=== PATIENT | male | born 1960 | race Caucasian/White ===

== ENCOUNTER 2016-06-14 14:14 | Inpatient (IN) ==
[2016-06-14] MEDS ORDERED: Ipratropium/Albuterol Neb 3 ML IH ONE ×3 (14:40→15:36)
--- NOTE | 2016-06-14 14:41 | Emergency Department Note ---
START Narrative - START START: I evaluated and examined the patient with the resident and agree with her findings assessment plan. The patient appears to have a significant COPD exacerbation. He has been persistently wheezy and somewhat hypoxemic even on oxygen here, he drops into the 80s. He usually does not require oxygen. The patient's peak flows were in the 130s. He denies any chest pain. EKG shows a sinus tachycardia with some slight ST depressions probably rate related. Troponin negative. At one point the patient's systolic blood pressure reached 155. He also had significant abnormalities noted on his chest x-ray. ET may be considered or CTA to evaluate further for pulmonic vascular disease or other intrathoracic pathology. Based on his persistent wheezing and apparent failed outpatient therapy with persistent hypoxemia and poor peak flow, and markedly elevated blood pressures, leukocytosis, and abnormal chest x-ray, I think the patient will require admission to the hospital. Anabiotic's were initiated in the ED. The cultures were sent. The patient's lactic acid is negative. No definitive pneumonitis is noted. We discussed the case with the hospitalist on- call who is excepted the patient to their care. Impression: COPD exacerbation Tachycardia Abnormal EKG Hypokalemia Failed outpatient therapy Elevated blood pressure Obesity Abnormal chest x-ray Nicotine dependence Hypoxemia
--- NOTE | 2016-06-14 14:45 | Emergency Department Note ---
Disposition Clinical Impression: Acute exacerbation of chronic obstructive airways disease Disposition: Admitted As Inpatient Condition: Fair SOB HPI - General Chief Complaint: ED Shortness of Breath/Dyspnea Stated Complaint: diff breathing Time Seen by Provider: 06/14/16 14:41 Source: patient Mode of arrival: EMS Limitations: no limitations Nursing Notes Reviewed: Yes Vital Signs Reviewed: Yes - History of Present Illness 56 yo M PMHx HTN, COPD presents with shortness of breath. Pt states that he has had dyspnea, wheeze and dry cough worse from his baseline COPD symptoms since thursday. Pt states he is on sympicort, spiriva and albuterol at home, and has been taking inhalers as prescribed, but has been requiring his rescue inhaler more often the past few days. Pt states he is not on oxygen at home but has required 2L NC today due to low saturations. Pt states that he has also had some subjective fever and has been around his girlfriend who was sick last week. He is a current smoker of 2ppd, he has never had to be hospitalized for COPD exacerbation, or pulmonary infection. Pt was sent from [place], prior to arrival he received duoneb and Iv solumedrol. Pt states that this helped somewhat. He denies chest pain, unilateral edema, numbness,tingling or weakness , nausea, vomiting. Pt Subjective Complaint: shortness of breath Onset (ago): day(s) Context: recent illness Severity: moderate Consistency/Duration: constant Improves with: oxygen, bronchodilators Worsens with: exertion, coughing Known history of: COPD Associated symptoms: Reports: fever Treatment prior to arrival: oxygen, bronchodilator Cough present: Yes Cough Description: Involuntary, Dry Cough Frequency: Persistent Sputum production: No - Related Data Home oxygen amount: none Home Medications Medication Instructions Recorded Confirmed Albuterol Sulfate [Albuterol 0 puff IH Q4HR 06/14/16 06/14/16 Inhaler] Aspirin [Lo-Dose Aspirin EC] 81 mg PO 06/14/16 Budesonide/Formoterol 160/4.5 2 puff IH BIDR 06/14/16 06/14/16 [Symbicort 160/4.5] Cholecalciferol (D-3) [Vitamin D] 1,000 unit PO DAILY 06/14/16 06/14/16 Montelukast [Singulair] 10 mg PO 06/14/16 Tiotropium [Spiriva] 18 mcg IH 06/14/16 Allergies Allergy/AdvReac Type Severity Reaction Status Date / Time No Known Allergies Allergy Verified 06/14/16 14:24 All systems ED: reviewed and negative except as stated. Constitutional: Reports: fever. Denies: chills, weakness Eyes: Denies: eye pain ENT ED: Denies: ear pain Cardiovascular: Denies: chest pain, palpitations, edema Respiratory: Reports: cough, dyspnea, wheezes. Denies: hemoptysis, sputum production Gastrointestinal: Denies: abdominal pain, nausea, vomiting Genitourinary: Denies: urgency, dysuria, frequency Musculoskeletal: Denies: back pain, neck pain Neurological: Denies: headache, weakness, numbness Past Medical History - Past Medical History Attestation: Yes The following information was validated with the patient. Source: patient Medical history: Reports: COPD, hypertension Psychiatric history: Reports: no psych history - Social History Smoking Status: Current every day smoker Smokeless Tobacco Status: No Alcohol use: Reports: none Drug use: Reports: marijuana Physical Exam - General Limitations: no limitations General appearance: alert, anxious - Head Head exam: atraumatic, normocephalic, normal inspection - Eye Eye exam: Present: normal appearance, PERRL, EOMI - ENT ENT exam: normal exam, normal oropharynx, mucous membranes moist - Neck Neck exam: Present: normal inspection, full ROM, trachea midline - Chest Chest inspection: Present: normal inspection. Absent: tenderness - Respiratory Respiratory exam: Present: wheezes, accessory muscle use. Absent: stridor - Expanded Respiratory Exam Location: wheezes: Left, Right, Upper, Lower (diffuse wheeze anterior and posterior b/l), decreased breath sounds: Left, Right, Upper, Lower (diminished course) - Cardiovascular Cardiovascular exam: Present: regular rate, normal rhythm, normal heart sounds, +S1, +S2. Absent: JVD - Abdominal Exam Abdominal exam: Present: soft, Non-Tender. Absent: tenderness, distention, guarding, rebound, rigidity - Extremities Exam Extremities exam: Present: normal inspection, full ROM. Absent: tenderness, pedal edema, calf tenderness - Back Exam Back exam: Present: normal inspection, full ROM. Absent: tenderness - Neurological Exam Neurological exam: Present: alert, oriented X3 - Psychiatric Psychiatric exam: Present: normal affect, normal mood - Skin Skin exam: Present: warm, dry, intact, normal color Course Vital Signs Temperature 98.1 F 06/14/16 14:18 Pulse Rate 102 06/14/16 14:18 Respiratory Rate 24 06/14/16 14:18 Blood Pressure 166/110 06/14/16 14:18 O2 Sat by Pulse Oximetry 96 06/14/16 14:18 Temperature 98.3 F 06/14/16 15:14 Pulse Rate 107 06/14/16 16:25 Respiratory Rate 24 06/14/16 16:25 Blood Pressure 148/105 06/14/16 16:25 O2 Sat by Pulse Oximetry 95 06/14/16 16:25 Oxygen Delivery Oxygen Delivery Nasal Cannula Shortness of Breath/Dyspnea - MDM Narrative Medical decision making narrative: pt continues to have diffuse wheezing, chest tightness during respiration and oxygen requirement despite multiple duoneb treatments and steroids breathing treatment, IV abx - Medical Records Medical records reviewed: Yes I reviewed the patient's medical records. - Lab Data Lab results reviewed: Yes I reviewed the patient's lab results. Result diagrams: 06/14/16 14:46 06/14/16 14:46 Lab Results 06/14/16 06/14/16 06/14/16 Range/Units 14:46 14:46 14:46 WBC 14.9 H (4.3-11.1) K/mcL RBC 4.88 (4.19-5.50) M/mcL Hgb 15.1 (12.9-16.9) g/dL Hct 42.9 (37.5-50.1) % MCV 87.9 (83.0-100.0) fL MCH 30.9 (28.0-33.3) pg MCHC 35.2 (31.6-35.5) g/dL RDW 12.1 (11.5-14.5) % Plt Count 273 (140-400) K/mcL MPV 10.2 (9.4-12.4) fL Immature Gran % 0.7 (0-4) % Seg Neutrophils % 87.6 % Lymphocytes % 9.1 % Monocytes % 2.4 % Eosinophils % 0.0 % Basophils % 0.2 % Neutrophils # 13.1 H (1.6-8.9) K/mcL Lymphocytes # 1.4 (0.6-4.6) K/mcL Monocytes # 0.4 (0.0-1.3) K/mcL Eosinophils # 0.0 (0.0-0.6) K/mcL Basophils # 0.0 (0.0-0.2) K/mcL Platelet Estimate Normal (Normal) PT 13.0 H (9.4-12.1) Seconds INR 1.2 APTT 31.0 (26.0-36.0) Seconds Sodium 134 L (136-145) mEq/L Potassium 3.1 L (3.5-4.5) mEq/L Chloride 88 L (98-109) mEq/L Carbon Dioxide 31 H (19-29) mEq/L BUN 10 (8-26) mg/dL Creatinine 0.86 (0.72-1.25) mg/dL Est GFR ( Amer) > 60 (> 60) Est GFR (Non-Af Amer) > 60 (> 60) BUN/Creatinine Ratio 12 (6-26) Glucose 109 H (70-99) mg/dL Calculated Osmolality 278 L (280-300) Lactic Acid (0.5-2.2) mmol/L Calcium 10.1 (8.6-10.8) mg/dL Total Bilirubin 0.6 (0.2-1.2) mg/dL Direct Bilirubin 0.3 (0.0-0.5) mg/dL Indirect Bilirubin 0.3 (0.0-1.2) mg/dL AST 28 (5-34) Units/L ALT 23 (0-55) Units/L Alkaline Phosphatase 74 (38-126) Units/L Troponin I (0-0.03) ng/mL C-Reactive Protein (Less than 5) mg/L B-Natriuretic Peptide (0-100) pg/mL Serum Total Protein 8.7 H (6.0-8.3) g/dL Albumin 3.8 (3.5-5.0) g/dL Globulin 4.9 H (2.4-3.5) g/dL Albumin/Globulin Ratio 0.8 L (1.1-2.2) 06/14/16 06/14/16 06/14/16 Range/Units 14:46 14:46 14:46 WBC (4.3-11.1) K/mcL RBC (4.19-5.50) M/mcL Hgb (12.9-16.9) g/dL Hct (37.5-50.1) % MCV (83.0-100.0) fL MCH (28.0-33.3) pg MCHC (31.6-35.5) g/dL RDW (11.5-14.5) % Plt Count (140-400) K/mcL MPV (9.4-12.4) fL Immature Gran % (0-4) % Seg Neutrophils % % Lymphocytes % % Monocytes % % Eosinophils % % Basophils % % Neutrophils # (1.6-8.9) K/mcL Lymphocytes # (0.6-4.6) K/mcL Monocytes # (0.0-1.3) K/mcL Eosinophils # (0.0-0.6) K/mcL Basophils # (0.0-0.2) K/mcL Platelet Estimate (Normal) PT (9.4-12.1) Seconds INR APTT (26.0-36.0) Seconds Sodium (136-145) mEq/L Potassium (3.5-4.5) mEq/L Chloride (98-109) mEq/L Carbon Dioxide (19-29) mEq/L BUN (8-26) mg/dL Creatinine (0.72-1.25) mg/dL Est GFR ( Amer) (> 60) Est GFR (Non-Af Amer) (> 60) BUN/Creatinine Ratio (6-26) Glucose (70-99) mg/dL Calculated Osmolality (280-300) Lactic Acid (0.5-2.2) mmol/L Calcium (8.6-10.8) mg/dL Total Bilirubin (0.2-1.2) mg/dL Direct Bilirubin (0.0-0.5) mg/dL Indirect Bilirubin (0.0-1.2) mg/dL AST (5-34) Units/L ALT (0-55) Units/L Alkaline Phosphatase (38-126) Units/L Troponin I 0.01 (0-0.03) ng/mL C-Reactive Protein 77 H (Less than 5) mg/L B-Natriuretic Peptide 11 (0-100) pg/mL Serum Total Protein (6.0-8.3) g/dL Albumin (3.5-5.0) g/dL Globulin (2.4-3.5) g/dL Albumin/Globulin Ratio (1.1-2.2) 06/14/16 Range/Units 14:46 WBC (4.3-11.1) K/mcL RBC (4.19-5.50) M/mcL Hgb (12.9-16.9) g/dL Hct (37.5-50.1) % MCV (83.0-100.0) fL MCH (28.0-33.3) pg MCHC (31.6-35.5) g/dL RDW (11.5-14.5) % Plt Count (140-400) K/mcL MPV (9.4-12.4) fL Immature Gran % (0-4) % Seg Neutrophils % % Lymphocytes % % Monocytes % % Eosinophils % % Basophils % % Neutrophils # (1.6-8.9) K/mcL Lymphocytes # (0.6-4.6) K/mcL Monocytes # (0.0-1.3) K/mcL Eosinophils # (0.0-0.6) K/mcL Basophils # (0.0-0.2) K/mcL Platelet Estimate (Normal) PT (9.4-12.1) Seconds INR APTT (26.0-36.0) Seconds Sodium (136-145) mEq/L Potassium (3.5-4.5) mEq/L Chloride (98-109) mEq/L Carbon Dioxide (19-29) mEq/L BUN (8-26) mg/dL Creatinine (0.72-1.25) mg/dL Est GFR ( Amer) (> 60) Est GFR (Non-Af Amer) (> 60) BUN/Creatinine Ratio (6-26) Glucose (70-99) mg/dL Calculated Osmolality (280-300) Lactic Acid 1.0 (0.5-2.2) mmol/L Calcium (8.6-10.8) mg/dL Total Bilirubin (0.2-1.2) mg/dL Direct Bilirubin (0.0-0.5) mg/dL Indirect Bilirubin (0.0-1.2) mg/dL AST (5-34) Units/L ALT (0-55) Units/L Alkaline Phosphatase (38-126) Units/L Troponin I (0-0.03) ng/mL C-Reactive Protein (Less than 5) mg/L B-Natriuretic Peptide (0-100) pg/mL Serum Total Protein (6.0-8.3) g/dL Albumin (3.5-5.0) g/dL Globulin (2.4-3.5) g/dL Albumin/Globulin Ratio (1.1-2.2) - Radiology Data Radiology results reviewed: Yes I reviewed the patient's radiology results. - EKG Data EKG attestation: Yes I reviewed and interpreted this EKG. EKG shows normal: Reports: sinus rhythm Rate: Reports: tachycardia - Core Measures AMI Core Measures Followed: Yes Critical Care Time Critical Care Time: No
[2016-06-14 15:08] LABS: Basophils % 0.2 %; Hematocrit 42.9 % (37.5-50.1); Hemoglobin 15.1 g/dL (12.9-16.9); Immature Granulocytes % 0.7 % (0-4); Lymphocytes # 1.4 K/mcL (0.6-4.6); Lymphocytes % 9.1 %; Mean Corpuscular HGB Conc 35.2 g/dL (31.6-35.5); Mean Corpuscular Hemoglobin 30.9 pg (28.0-33.3); Mean Corpuscular Volume 87.9 fL (83.0-100.0); Mean Platelet Volume 10.2 fL (9.4-12.4); Monocytes # 0.4 K/mcL (0.0-1.3); Monocytes % 2.4 %; Neutrophils # 13.1 K/mcL (1.6-8.9); Platelet Count 273 K/mcL (140-400); Red Blood Count 4.88 M/mcL (4.19-5.50); Red Cell Distribution Width 12.1 % (11.5-14.5); Segmented Neutrophils % 87.6 %
[2016-06-14 15:13] LABS: INR 1.2
[2016-06-14 15:23] LABS: Alanine Aminotransferase 23 Units/L (0-55); Albumin 3.8 g/dL (3.5-5.0); Albumin/Globulin Ratio 0.8 (1.1-2.2); Alkaline Phosphatase 74 Units/L (38-126); Aspartate Amino Transferase 28 Units/L (5-34); BUN/Creatinine Ratio 12 (6-26); Bilirubin,Direct 0.3 mg/dL (0.0-0.5); Bilirubin,Indirect 0.3 mg/dL (0.0-1.2); Bilirubin,Total 0.6 mg/dL (0.2-1.2); Blood Urea Nitrogen 10 mg/dL (8-26); Calcium 10.1 mg/dL (8.6-10.8); Carbon Dioxide 31 mEq/L (19-29); Chloride 88 mEq/L (98-109); Globulin 4.9 g/dL (2.4-3.5); Glucose 109 mg/dL (70-99); Osmolality,Calculated 278 (280-300); Potassium 3.1 mEq/L (3.5-4.5); Sodium 134 mEq/L (136-145); Total Protein 8.7 g/dL (6.0-8.3); eGFR For African Americans > 60 (> 60); eGFR For Non-African Americans > 60 (> 60)
[2016-06-14 15:29] LABS: Platelet Estimate Normal (Normal)
[2016-06-14] MEDS ORDERED: *HR* LORazepam 2 MG/ML VIAL IVP ONE (15:36)
[2016-06-14] MEDS ORDERED: Levofloxacin 750 MG/150 ML 750 MG/150 ML BAG IVPB ONE (15:39)
--- NOTE | 2016-06-14 19:56 | Internal Med History&Physical ---
Date of Encounter: 06/14/16 Time of Encounter: 19:54 Assessment and Plan (1) Acute exacerbation of chronic obstructive airways disease Current visit: Yes Status: Acute will give IV steroids and duonebs o2 at 2 l and titrate to maintain sats >88-92% CXR does not show any pneumonia but shows left sided atypical pleuroparenchymal thickening which may be re evaluated as OP. not on home o2, con need 6MWT for possible o2 qualification before dc. will order nicotine patch, advised quit smoking. (2) HTN (hypertension) Current visit: Yes Status: Acute stable continue home meds Qualifiers: Hypertension type: essential hypertension Qualified Code(s): I10 - Essential (primary) hypertension Internal Medicine - H&P: HPI Chief complaint: sob Admitted From: Home Plans for Post Hospital Care: Home History of present illness: Mr. Mullins is a 56 year old male with PMHx HTN, COPD presents with shortness of breath. Pt states that he has had dyspnea, wheeze and dry cough worse from his baseline COPD symptoms since thursday. Pt states he is on sympicort, spiriva and albuterol at home, and has been taking inhalers as prescribed, but has been requiring his rescue inhaler more often the past few days. Pt states he is not on oxygen at home but has required 2L NC today due to low saturations. Pt states that he has also had some subjective fever and has been around his girlfriend whose kid was sick with flu like symptoms. He is a current smoker of 2ppd, he has never had to be hospitalized for COPD exacerbation, and never intubated. Pt was sent from [place], prior to arrival he received duoneb and Iv solumedrol. Pt states that this helped somewhat. He denies chest pain, unilateral edema, numbness,tingling or weakness, nausea, vomiting. Past Med Surg Social Fam HX - Past Medical History Medical history: COPD, hypertension Psychiatric history: no psych history - Past Surgical History Surgical History: no surgical history - Social History Smoking Status: Current every day smoker Smokeless Tobacco Status: No Alcohol use: none Drug use: marijuana - Family History Mother Living Status: Hx Family Cardiac Disorders: Yes (NH) Hx Family Cancer: Yes (Lung) Internal Medicine - H&P: Meds Albuterol Sulfate [Albuterol Inhaler] 0 puff IH Q4HR 06/14/16 [History] Aspirin [Lo-Dose Aspirin EC] 81 mg PO 06/14/16 [History] Budesonide/Formoterol 160/4.5 [Symbicort 160/4.5] 2 puff IH BIDR 06/14/16 [ History] Cholecalciferol (D-3) [Vitamin D] 1,000 unit PO DAILY 06/14/16 [History] Montelukast [Singulair] 10 mg PO 06/14/16 [History] Tiotropium [Spiriva] 18 mcg IH 06/14/16 [History] Allergies No Known Allergies Allergy (Verified 06/14/16 14:24) All Systems PM: A 10-system review of systems was performed and is negative for pertinent findings except as documented above in the HPI. - Constitutional Constitutional: as per HPI - EENT Eyes: as per HPI Nose, mouth and throat: as per HPI - Breasts Breasts: as per HPI - Cardiovascular Cardiovascular ROS IM: dyspnea, dyspnea on exertion - Respiratory Respiratory: as per HPI, cough, dyspnea, dyspnea on exertion, wheezing - Gastrointestinal Gastrointestinal: as per HPI - Constitutional Vitals: Temp Pulse Resp BP Pulse Ox 97.9 F 98 16 136/88 97 06/14/16 18:59 06/14/16 18:59 06/14/16 18:59 06/14/16 18:59 06/14/16 18:59 General appearance: Present: mild distress, A&O X 3 Exam: HEENT- appears dusky neck- supple chest- b/l wheezing, no creptns cvs-s1 and s2, no mr//g abd-soft, non tender, bs are present ext- no edema neuro- no focal neuro defecits. Internal Med - H&P Results - Labs CBC & Chem 7: 06/14/16 14:46 06/14/16 14:46
[2016-06-14] MEDS ORDERED: Naloxone 0.4 MG/ML INJ IVP PRN (20:02)
[2016-06-14] MEDS: Ipratropium/Albuterol Neb 3 ML IH SCH ×2 (20:35→23:46)
[2016-06-14] MEDS: Budesonide/Formoterol 160/4.5 MDI IH SCH (20:36)
[2016-06-14] MEDS: Nicotine 14 MG PATCH.TD24 TD SCH (20:52)
[2016-06-14] MEDS: Acetaminophen 325 MG TABLET PO PRN (22:43)
[2016-06-14] MEDS: methylPREDNISolone 125 MG/2 ML VIAL IVP SCH (23:47)
[2016-06-15] MEDS: Ipratropium/Albuterol Neb 3 ML IH SCH ×6 (03:46→23:26)
[2016-06-15 03:53] LABS: Basophils % 0.2 %; Hematocrit 37.8 % (37.5-50.1); Immature Granulocytes % 0.4 % (0-4); Lymphocytes # 0.9 K/mcL (0.6-4.6); Lymphocytes % 10.5 %; Mean Corpuscular HGB Conc 35.7 g/dL (31.6-35.5); Mean Corpuscular Hemoglobin 31.9 pg (28.0-33.3); Mean Corpuscular Volume 89.4 fL (83.0-100.0); Mean Platelet Volume 10.3 fL (9.4-12.4); Monocytes # 0.1 K/mcL (0.0-1.3); Monocytes % 1.5 %; Neutrophils # 7.4 K/mcL (1.6-8.9); Platelet Count 257 K/mcL (140-400); Red Blood Count 4.23 M/mcL (4.19-5.50); Red Cell Distribution Width 12.1 % (11.5-14.5); Segmented Neutrophils % 87.4 %
[2016-06-15 03:55] LABS: Hemoglobin 13.5 g/dL (12.9-16.9)
[2016-06-15 04:05] LABS: BUN/Creatinine Ratio 18 (6-26); Blood Urea Nitrogen 14 mg/dL (8-26); Calcium 9.7 mg/dL (8.6-10.8); Carbon Dioxide 32 mEq/L (19-29); Chloride 90 mEq/L (98-109); Glucose 149 mg/dL (70-99); Magnesium 1.9 mg/dL (1.6-2.6); Osmolality,Calculated 281 (280-300); Phosphorous 3.7 mg/dL (2.3-4.7); Potassium 3.1 mEq/L (3.5-4.5); Sodium 134 mEq/L (136-145); eGFR For African Americans > 60 (> 60); eGFR For Non-African Americans > 60 (> 60)
[2016-06-15 04:11] LABS: Platelet Estimate Normal (Normal)
[2016-06-15] MEDS: *HR* Heparin 5,000 UNIT/ML VIAL SQ SCH ×2 (06:03→16:38)
[2016-06-15] MEDS: Budesonide/Formoterol 160/4.5 MDI IH SCH ×2 (07:54→19:35)
[2016-06-15] MEDS: methylPREDNISolone 125 MG/2 ML VIAL IVP SCH ×3 (08:16→23:39)
[2016-06-15] MEDS: Nicotine 14 MG PATCH.TD24 TD SCH (08:16)
[2016-06-15] MEDS: Magnesium Oxide 400 MG TABLET PO SCH ×2 (11:31→19:56)
[2016-06-15] MEDS: Aspirin Enteric Coated 81 MG Tablet PO SCH (11:31)
--- NOTE | 2016-06-15 14:06 | Internal Med Progress Note ---
<Rowena Woody Mike - Last Filed: 06/15/16 13:35> Date of Encounter: 06/15/16 Time of Encounter: 11:00 - Assessment and plan (1) Acute exacerbation of chronic obstructive airways disease Current Visit: Yes Status: Acute Assessment and plan: Patient stated that he had severe dyspnea upon arrival to hospital His breathing is improved today CT chest 06/15/16 demonstrated calcified area of scarring to left apex, no discrete mass noted, no pleural effusion, motion limitation of study with suspected infectious or post-inflammatory changes of lung bases bilaterally Leukocytosis has resolved today Continue Duonebs Q4 h scheduled Solu-medrol 60mg Q8H scheduled Levaquin (day#2) Discussed smoking cessation with patient Will attempt to qualify for home O2 (2) HTN (hypertension) Current Visit: Yes Status: Acute Assessment and plan: Patient has had elevated BP as high as 166/110 upon arrival to hospital BP at this time 139/96 Restart patient's home dose of HCTZ 25mg daily Hydralazine 10mg prn for uncontrolled BP Qualifiers: Hypertension type: essential hypertension Qualified Code(s): I10 - Essential (primary) hypertension (3) Tobacco abuse Current Visit: Yes Status: Acute Assessment and plan: I spent 6 minutes discussing smoking cessation with patient Patient verbalized understanding (4) Hypokalemia Current Visit: Yes Status: Acute Assessment and plan: Repleted Monitor (5) Leukocytosis Current Visit: Yes Status: Acute Assessment and plan: Resolved from yesterday Continue to monitor Qualifiers: Leukocytosis type: unspecified Qualified Code(s): D72.829 - Elevated white blood cell count, unspecified (6) DVT prophylaxis Current Visit: Yes Status: Acute Assessment and plan: Heparin SQ Q12H - Subjective Interval history: Patient admitted from [place] [facility] for COPD exacerbation. Patient states that he started becoming more dyspnic on of this week, with extreme shortness of breath developing Thursday. Patient was treated with IV solumedrol and duoneb at [place], then sent to [facility]. Patient states that he is feeling much better today. He is requiring 3L of O2 to maintain appropriate oxygenation, however. Patient has remained afebrile since admission. Patient states that he does not use home O2. Patient is unsure if he has previously had PFTs. However, he states that he believes he "breathed into a tube" at one time for testing. - Constitutional Vitals: Temp Pulse Resp BP Pulse Ox 97.3 F L 99 18 139/96 97 06/15/16 12:15 06/15/16 12:15 06/15/16 12:15 06/15/16 12:15 06/15/16 12:15 General appearance: Present: A&O X 3, answers questions appropriately - Head Head exam: Present: atraumatic, normocephalic - Eye Eye exam: Present: EOMI, conjuntiva pink, sclera anicteric - Neck Neck exam general surgery: Present: supple, trachea midline. Absent: lymphadenopathy - Respiratory Respiratory exam: Present: prolonged expiratory phase, wheezes. Absent: accessory muscle use, rales, rhonchi - Cardiovascular Cardiovascular exam: Present: RRR, +S1, +S2. Absent: diastolic murmur, gallop, rubs, systolic murmur - GI/Abdominal GI/Abdominal exam: Present: normal bowel sounds, soft, no peritoneal signs. Absent: distended, tenderness - Extremities Exam Extremities exam: Present: warm, radial pulses palpable and symetrical. Absent : calf tenderness, cyanotic, pedal edema - Neurological Exam Neurological exam: Present: CN II-XII intact, oriented X3, no focal deficits. Absent: facial droop, speech deficit - Skin Skin exam: Present: dry, intact Internal Medicine: Result - Labs CBC & Chem 7: 06/15/16 03:36 06/15/16 03:36 Labs: Short CBC 06/15/16 Range/Units 03:36 WBC 8.5 (4.3-11.1) K/mcL Hgb 13.5 D (12.9-16.9) g/dL Hct 37.8 (37.5-50.1) % Plt Count 257 (140-400) K/mcL Neutrophils # 7.4 (1.6-8.9) K/mcL BMP 06/15/16 03:36 Sodium 134 L Potassium 3.1 L Chloride 90 L Carbon Dioxide 32 H BUN 14 Creatinine 0.79 Glucose 149 H Calcium 9.7 - ABG Interpretation ABG results: PT/INR, D-dimer PT 13.0 Seconds (9.4-12.1) H 06/14/16 14:46 - Impressions Impressions Chest CT 06/15/16 11:10 IMPRESSION: Chronic change at the left apex with partially calcified area of scarring which may represent underlying sequela of granulomatous disease accounts for findings on chest radiograph. Moderate motion limitation of the study in a patient with underlying COPD and suspected postinflammatory or infectious changes of the lung bases bilaterally. D/ /15/2016 13:12:44 Óscar Gotti MD / [facility] Interpreting Provider: Óscar Gotti MD Consult Discharge Plan - Plan Referrals: NO,PCP [Primary Care Provider] - <Reji Seth - Last Filed: 06/15/16 14:49> Date of Encounter: 06/15/16 - Constitutional Vitals: Temp Pulse Resp BP Pulse Ox 97.3 F L 99 18 139/96 97 06/15/16 12:15 06/15/16 12:15 06/15/16 12:15 06/15/16 12:15 06/15/16 12:15 Internal Medicine: Result - Labs CBC & Chem 7: 06/15/16 03:36 06/15/16 03:36 Labs: Short CBC 06/15/16 Range/Units 03:36 WBC 8.5 (4.3-11.1) K/mcL Hgb 13.5 D (12.9-16.9) g/dL Hct 37.8 (37.5-50.1) % Plt Count 257 (140-400) K/mcL Neutrophils # 7.4 (1.6-8.9) K/mcL BMP 06/15/16 03:36 Sodium 134 L Potassium 3.1 L Chloride 90 L Carbon Dioxide 32 H BUN 14 Creatinine 0.79 Glucose 149 H Calcium 9.7 - ABG Interpretation ABG results: PT/INR, D-dimer PT 13.0 Seconds (9.4-12.1) H 06/14/16 14:46 - Impressions Impressions Chest CT 06/15/16 11:10 IMPRESSION: Chronic change at the left apex with partially calcified area of scarring which may represent underlying sequela of granulomatous disease accounts for findings on chest radiograph. Moderate motion limitation of the study in a patient with underlying COPD and suspected postinflammatory or infectious changes of the lung bases bilaterally. D/ / 06/15/2016 13:12:44 Óscar Gotti MD / [email or web address] Interpreting Provider: Óscar Gotti MD - Attending Attestation I examined this patient and my medical decision-making was reviewed with the Resident Physician, Dr. Rowena Woody. I agree with the documented findings, disposition and treatment plan as described except to the extent set forth below. Patient presented with shortness of breath. Currently he is in no acute distress awake alert oriented. His heart exam reveals regular S1 and S2 with no murmurs. Lungs auscultation reveals bilateral expiratory wheezes with no rales or rhonchi. Plan: We will continue with IV steroids. Start tapering tomorrow. Inhaled bronchodilators. Oral Levaquin. Check respiratory infection panel. I have advised smoking cessation. Continue with NicoDerm. We will check home oxygen qualification.
[2016-06-15] MEDS: Cholecalciferol (D-3) 1,000 UNIT TABLET PO SCH (16:38)
[2016-06-15] MEDS: hydroCHLOROthiazide 25 MG TABLET PO SCH (16:38)
[2016-06-15] MEDS: Acetaminophen 325 MG TABLET PO PRN (16:49)
--- NOTE | 2016-06-15 17:26 | ECHO - Doppler Report ---
Echocardiogram Name: Pratik Mullins Date of Study: 06/15/2016 Date: 1960 Ht: 65.0 in Medical Record#: [id number] Age: 56 Wt: 179.0 lb Gender: Male BSA: 1.89 Order #: [id number] Location: [facility] Room #: 3A52 Reading Physician: Aixa Leiva DO General Administrator: Kaitlynn Castrejon Ordering Physician: Aldo Gaffney MD Primary Physician: [facility] Indications: Pulmonary hypertension Impressions: LVEF 60-65%. Normal left ventricular size and systolic function. There is evidence of mild diastolic dysfunction of the left ventricle. Normal right ventricular size and function. No significant valvular dysfunction. Estimated RVSP was 14 mmHg. No pulmonary hypertension. Left Ventricular Wall Motion: Rest Echo Findings All wall segments showed normal motion. Findings: Study Quality * Technically adequate exam. ECG Findings * Normal sinus rhythm. Left Ventricle * Normal LV chamber size, wall thickness and function. * Mild left ventricular diastolic dysfunction. * LVEF 60-65%. Left Atrium * Normal left atrial size. Aortic Valve * No aortic regurgitation. * Trileaflet aortic valve. * Normal aortic valve structure. * No aortic stenosis. Mitral Valve * Normal mitral valve structure. * No mitral regurgitation. * No mitral stenosis. Tricuspid Valve * Normal tricuspid valve structure. * Trace tricuspid regurgitation. * Estimated RA pressure is 3 mmHg. * Estimated RVSP is 14 mmHg. * No pulmonary hypertension. Pulmonic Valve * Pulmonic valve is not well visualized. * No pulmonic stenosis. * No pulmonic regurgitation. Pulmonary Artery * Pulmonary artery not well visualized. Right Ventricle * Normal right ventricular structure and function. Right Atrium * Normal right atrial size. Interatrial Septum * No evidence of PFO by color Doppler. Pericardium * There is no pericardial effusion present. Aorta * Normally sized aortic root. IVC * Normal IVC dimensions and inspiratory collapse. History Hypertension History of Smoking Years 41 Packs 2 Family History of CAD Measurements: BP: 136/ 91 2D Normal Values RVIDd: 3.30 cm <2.7 cm IVSd: .60 cm 0.6 - 1.0 cm LVIDd: 5.10 cm 3.7 - 5.6 cm LVPWd: .90 cm 0.6 - 1.1 cm LVIDs: 3.50 cm 1.5 - 3.6 cm AO: 3.10 cm < 4.0 cm LA: 3.40 cm 2.0 - 4.0cm %FS: 31.40 cm >25 % LA volume: 32 Mitral Valve Peak E:.72 m/sec Peak A:.85 m/sec E/A Ratio:0.8 Tricuspid Valve TV Regurg Peak Grad: 11.00mmHg TV Regurg Peak Inocencio: 1.63m/sec Updated by Aixa Leiva on 06/15/2016 5:21:45 PM electronically signed on 06/15/2016 5:22:23 PM with status of Final Wall Motion Glass: 1=Normal, 2=Hypokinesis, 3=Akinesis, 4=Dyskinesis, 5=Aneurysmal, 6=Hyperkinetic, X=Not Visualized (Blank)=Missing
[2016-06-15] MEDS ORDERED: levoFLOXacin 750 MG TABLET PO SCH (18:00)
[2016-06-15 18:30] LABS: Adenovirus Not Detected (Not Detect); Bordetella Pertussis Not Detected (Not Detect); Chlamydophila pneumoniae Not Detected (Not Detect); Coronavirus 229E Not Detected (Not Detect); Coronavirus HKU1 Not Detected (Not Detect); Coronavirus NL63 Not Detected (Not Detect); Coronavirus OC43 Not Detected (Not Detect); Human Metapneumovirus Not Detected (Not Detect); Human Rhinovirus/Enterovirus Not Detected (Not Detect); Influenza A Subtype 2009 H1 Not Detected (Not Detect); Influenza A Untypeable Not Detected (Not Detect); Influenza B Not Detected (Not Detect); Mycoplasma pneumoniae Not Detected (Not Detect); Parainfluenza Virus 1 Not Detected (Not Detect); Parainfluenza Virus 2 Not Detected (Not Detect); Parainfluenza Virus 3 Not Detected (Not Detect); Parainfluenza Virus 4 Not Detected (Not Detect); Respiratory Syncytial Virus Not Detected (Not Detect)
[2016-06-15] MEDS ORDERED: *HR* LORazepam 1 MG TABLET PO ONE (20:47)
[2016-06-16] MEDS: Ipratropium/Albuterol Neb 3 ML IH SCH ×4 (04:11→16:31)
[2016-06-16 05:15] LABS: Basophils % 0.1 %; Hematocrit 36.2 % (37.5-50.1); Hemoglobin 12.8 g/dL (12.9-16.9); Immature Granulocytes % 0.4 % (0-4); Lymphocytes % 5.5 %; Mean Corpuscular HGB Conc 35.4 g/dL (31.6-35.5); Mean Corpuscular Hemoglobin 31.9 pg (28.0-33.3); Mean Corpuscular Volume 90.3 fL (83.0-100.0); Mean Platelet Volume 10.7 fL (9.4-12.4); Monocytes # 0.4 K/mcL (0.0-1.3); Monocytes % 2.5 %; Platelet Count 309 K/mcL (140-400); Red Blood Count 4.01 M/mcL (4.19-5.50); Red Cell Distribution Width 12.2 % (11.5-14.5); Segmented Neutrophils % 91.5 %
[2016-06-16 05:19] LABS: Lymphocytes # 0.8 K/mcL (0.6-4.6)
[2016-06-16 05:28] LABS: BUN/Creatinine Ratio 24 (6-26); Blood Urea Nitrogen 20 mg/dL (8-26); Calcium 9.5 mg/dL (8.6-10.8); Carbon Dioxide 34 mEq/L (19-29); Chloride 91 mEq/L (98-109); Glucose 154 mg/dL (70-99); Osmolality,Calculated 288 (280-300); Potassium 3.8 mEq/L (3.5-4.5); Sodium 136 mEq/L (136-145); eGFR For African Americans > 60 (> 60); eGFR For Non-African Americans > 60 (> 60)
[2016-06-16] MEDS: *HR* Heparin 5,000 UNIT/ML VIAL SQ SCH (06:24)
[2016-06-16] MEDS: Acetaminophen 325 MG TABLET PO PRN ×3 (06:26→18:29)
[2016-06-16] MEDS: Budesonide/Formoterol 160/4.5 MDI IH SCH (07:54)
[2016-06-16] MEDS: methylPREDNISolone 125 MG/2 ML VIAL IVP SCH (08:34)
[2016-06-16] MEDS: Cholecalciferol (D-3) 1,000 UNIT TABLET PO SCH (08:35)
[2016-06-16] MEDS: Aspirin Enteric Coated 81 MG Tablet PO SCH (08:35)
[2016-06-16] MEDS: Magnesium Oxide 400 MG TABLET PO SCH (08:35)
[2016-06-16] MEDS: hydroCHLOROthiazide 25 MG TABLET PO SCH (08:36)
[2016-06-16] MEDS: Nicotine 14 MG PATCH.TD24 TD SCH (08:45)
[2016-06-16 14:55] VITALS: BP 152/96
--- NOTE | 2016-06-16 15:22 | Discharge Summary ---
Date of Encounter: 06/16/16 Time of Encounter: 10:00 - Discharge Diagnosis (1) Acute exacerbation of chronic obstructive airways disease Priority: Primary Status: Acute (2) HTN (hypertension) Priority: Secondary Status: Acute Qualifiers: Hypertension type: essential hypertension Qualified Code(s): I10 - Essential (primary) hypertension (3) Tobacco abuse Priority: Secondary Status: Acute (4) Acute and chronic respiratory failure with hypoxia Priority: Secondary Status: Acute - Discharge Medications Prescriptions: Ipratropium/Albuterol Neb [Duoneb] 3 ml IH [id number] PRN #60 inhsol PRN Reason: Wheezing Levofloxacin 750 mg PO Q24H #4 tablet Nicotine Patch [Nicoderm] 14 mg TD DAILY #30 patch.td24 PredniSONE 60 mg PO DAILY #54 tablet Home Medications: Albuterol Sulfate [Albuterol Inhaler] 0 puff IH Q4HR 06/14/16 [History] Aspirin [Lo-Dose Aspirin EC] 81 mg PO DAILY 06/14/16 [History] Budesonide/Formoterol 160/4.5 [Symbicort 160/4.5] 2 puff IH BIDR 06/14/16 [ History] Cholecalciferol (D-3) [Vitamin D] 1,000 unit PO DAILY 06/14/16 [History] Tiotropium [Spiriva] 1 cap IH DAILY 06/14/16 [History] Acetaminophen [Tylenol] 325 - 650 mg PO Q6HR PRN 06/15/16 [History] Hydrochlorothiazide 25 mg PO DAILY 06/15/16 [History] Ipratropium/Albuterol Neb [Duoneb] 3 ml IH [id number] PRN #60 inhsol 06/16/16 [Rx] Levofloxacin 750 mg PO Q24H #4 tablet 06/16/16 [Rx] Nicotine Patch [Nicoderm] 14 mg TD DAILY #30 patch.td24 06/16/16 [Rx] PredniSONE 60 mg PO DAILY #54 tablet 06/16/16 [Rx] Allergies/Adverse Reactions: Allergies No Known Allergies Allergy (Verified 06/14/16 14:24) Date of admission: 06/15/16 18:14 Primary care physician: PCP NO - Patient Status Disposition: Home, Self-Care Condition: Fair Functional capacity at discharge: independent ambulation Overall status at discharge: patient is progressing back to baseline - Discharge Instructions Follow Up With: [facility] [Outside] - 06/27/16 12:30 pm - Diet and Activity Activity: increase activity as tolerated, wear oxygen at all times (Avoid any open flame close to your oxygen delivery system) Diet: low fat, low cholesterol, low salt diet Hospital course: Mr. Mullins is a 56 year old male with past medical history significant for hypertension, current tobacco use and COPD who presented to the hospital for shortness of breath. He also reported associated cough and sick contacts. He subjective fevers preceding his symptoms. He currently smokes 40 cigarettes a day. He was found to be hypoxic while in the emergency department. He was admitted to the medical service. Treated with IV steroids, oral Levaquin and inhaled bronchodilators. He was maintained on oxygen by nasal cannula. Today he ambulated in the hallway without any oxygen supplementation and his oxygen saturation dropped to 88% after 5 minutes of slow pace walking. At that time he became tachipneic and short of breath. Overall his symptoms have improved and his hypoxia has been corrected with administration of oxygen by nasal cannula 2 L/m. He will be transitioned to oral steroids and antibiotics and discharged home with home oxygen. I have counseled patient extensively about the importance of smoking cessation and he verbalizes the intention to quit smoking. He expresses understanding the discharge plan. - Time Spent with Patient Total time spent providing and/or coordinating discharge services: Greater than 30 minutes (I have spent 50 minutes coordinating this discharge.) - Constitutional Vitals: Temp Pulse Resp BP Pulse Ox 98.1 F 110 18 152/96 98 06/16/16 14:54 06/16/16 14:54 06/16/16 14:54 06/16/16 14:54 06/16/16 14:54 General appearance: Present: A&O X 3, answers questions appropriately - Respiratory Respiratory exam: Present: prolonged expiratory phase, wheezes (Expiratory wheezes). Absent: accessory muscle use, rales, rhonchi - Cardiovascular Cardiovascular exam: Present: RRR, +S1, +S2. Absent: diastolic murmur, gallop, rubs, systolic murmur - GI/Abdominal GI/Abdominal exam: Present: normal bowel sounds, soft, no peritoneal signs. Absent: distended, tenderness
--- NOTE | 2016-06-16 17:04 | Electrocardiograph Report ---
[address] [address] Test Date: 2016-06-14 Pat Name: Pratik Mullins Department: 105 Room: [facility] Gender: M Consumer Experience Consultant: BAYLEE : 1960 Requested By: Bhavin Jimenes Order Number: [id number] Reading MD: Sanjana Chino Measurements Intervals [place] Rate: 105 P: 79 ID: [id number] QRS: 47 QRSD: 106 T: 51 QT: 311 QTc: 372 Interpretive Statements SINUS TACHYCARDIA ABNORMAL RHYTHM ECG Electronically Signed On 06-16-2016 17:03:17 EDT by Sanjana Chino
== END 2016-06-16 18:36 | disposition home or self-care (01) | DRG 190 ==
LOC: 3ANU 14:14 → EMEROO 14:14 → 3ANU 18:55
PROVIDERS: ADMIT Internal Medicine; ATTEND Internal Medicine

== ENCOUNTER 2018-06-14 06:50 | Inpatient (IN) ==
[2018-06-14] MEDS ORDERED: Ipratropium/Albuterol Neb 3 ML IH ONE (07:02)
[2018-06-14] MEDS ORDERED: methylPREDNISolone 125 MG/2 ML VIAL IVP ONE (07:02)
--- NOTE | 2018-06-14 07:08 | Emergency Department Note ---
Disposition Clinical Impression: COPD with acute exacerbation, Elevated ALT measurement Dyspnea Qualifiers: Dyspnea type: shortness of breath Qualified Code(s): R06.02 - Shortness of breath Disposition: Admitted As Inpatient Condition: Fair General Adult HPI - General Chief complaint: ED Shortness of Breath/Dyspnea Stated complaint: lissett Time Seen by Provider: 06/14/18 07:02 Nursing Notes Reviewed: Yes Vital Signs Reviewed: Yes - History of Present Illness Pain Scale: 0 - Related Data Home Medications Medication Instructions Recorded Confirmed Albuterol Sulfate [Albuterol 0 puff IH Q4HR 06/14/16 06/15/16 Inhaler] Aspirin [Lo-Dose Aspirin EC] 81 mg PO DAILY 06/14/16 06/15/16 Budesonide/Formoterol 160/4.5 2 puff IH BIDR 06/14/16 06/15/16 [Symbicort 160/4.5] Cholecalciferol (D-3) [Vitamin D] 1,000 unit PO DAILY 06/14/16 06/15/16 Tiotropium [Spiriva] 1 cap IH DAILY 06/14/16 06/15/16 Acetaminophen [Tylenol] 325 - 650 mg PO Q6HR PRN 06/15/16 06/15/16 hydroCHLOROthiazide 25 mg PO DAILY 06/15/16 06/15/16 [Hydrochlorothiazide] Previous Rx's Medication Instructions Recorded Ipratropium/Albuterol Neb [Duoneb] 3 ml IH [id number] PRN #60 inhsol 06/16/16 Losartan [Cozaar] 25 mg PO DAILY #30 tablet 06/16/16 Nicotine Patch [Nicoderm] 14 mg TD DAILY #30 patch.td24 06/16/16 levoFLOXacin [Levaquin] 750 mg PO Q24H #4 tablet 06/16/16 predniSONE [PredniSONE] 60 mg PO DAILY #54 tablet 06/16/16 Allergies Allergy/AdvReac Type Severity Reaction Status Date / Time No Known Allergies Allergy Verified 06/14/18 06:58 Past Medical History - Past Medical History Medical history: Reports: COPD, hypertension Surgical history: Reports: no surgical history Psychiatric history: Reports: no psych history - Social History Smoking Status: Current every day smoker Smokeless Tobacco Status: No Alcohol use: Reports: none Drug use: Reports: marijuana Course Vital Signs O2 Sat by Pulse Oximetry 98 06/14/18 06:59 Temperature 98.2 F 06/14/18 11:02 Pulse Rate 113 06/14/18 11:02 Respiratory Rate 24 06/14/18 11:51 Blood Pressure 114/82 06/14/18 11:02 O2 Sat by Pulse Oximetry 96 06/14/18 11:51 Oxygen Delivery Oxygen Delivery Non Rebreather Mask Medical Decision Making - MDM Narrative Medical decision making narrative: Chest X-Ray 06/14/18 07:02 IMPRESSION: Mild COPD. D/ / Markell Joaquin MD / Markell Joaquin MD Interpreting Provider: Markell Joaquin MD . 0925 hours doing better. Going to admit for COPD exacerbation. Patient's in agreement with plan. Hospitalist as accepted - Lab Data Result diagrams: 06/14/18 07:55 06/14/18 07:55 Lab Results 06/14/18 06/14/18 06/14/18 Range/Units 07:55 07:55 07:55 WBC 21.4 H (4.3-11.1) K/mcL RBC 4.25 (4.19-5.50) M/mcL Hgb 13.2 (12.9-16.9) g/dL Hct 39.6 (37.5-50.1) % MCV 93.2 (83.0-100.0) fL MCH 31.1 (28.0-33.3) pg MCHC 33.3 (31.6-35.5) g/dL RDW 13.7 (11.5-14.5) % Plt Count 315 (140-400) K/mcL MPV 10.2 (9.4-12.4) fL Immature Gran % 2.4 (0-4) % Seg Neutrophils % 88.0 % Lymphocytes % 3.5 % Monocytes % 5.8 % Eosinophils % 0.1 % Basophils % 0.2 % Neutrophils # 18.9 H (1.6-8.9) K/mcL Lymphocytes # 0.8 (0.6-4.6) K/mcL Monocytes # 1.2 (0.0-1.3) K/mcL Eosinophils # 0.0 (0.0-0.6) K/mcL Basophils # 0.0 (0.0-0.2) K/mcL Sodium 135 L (136-145) mEq/L Potassium 4.4 (3.5-5.1) mEq/L Chloride 96 L (98-107) mEq/L Carbon Dioxide 30 H (23-29) mEq/L BUN 28 H (6-20) mg/dL Creatinine 0.84 (0.70-1.30) mg/dL Est GFR ( Amer) > 60 (> 60) Est GFR (Non-Af Amer) > 60 (> 60) BUN/Creatinine Ratio 33 H (6-26) Glucose 127 H (70-105) mg/dL Calculated Osmolality 287 (280-300) Lactic Acid 1.5 (0.5-2.2) mmol/L Calcium 9.0 (8.6-10.3) mg/dL Phosphorus (2.7-4.5) mg/dL Magnesium (1.6-2.6) mg/dL Total Bilirubin (0.3-1.0) mg/dL Direct Bilirubin (0.0-0.2) mg/dL Indirect Bilirubin (0.0-1.2) mg/dL AST (13-39) Units/L ALT (7-52) Units/L Alkaline Phosphatase (34-104) Units/L Troponin I 0.03 (< 0.04) ng/mL Serum Total Protein (6.4-8.9) g/dL Albumin (3.5-5.7) g/dL Globulin (2.4-3.5) g/dL Albumin/Globulin Ratio (1.1-2.2) Urine Color (Yellow) Urine Clarity (Clear) Urine pH (5.0-8.0) pH Units Ur Specific [place] (1.010-1.025) Urine Protein (Neg-Trace) mg/dL Urine Glucose (UA) (Normal) mg/dL Urine Ketones (Negative) mg/dL Urine Blood (Negative) Urine Nitrite (Negative) Urine Bilirubin (Negative) Urine Urobilinogen (Normal) mg/dL Ur Leukocyte Esterase (Negative) Ur Culture Indicated? (NO) 06/14/18 06/14/18 Range/Units 07:55 08:45 WBC (4.3-11.1) K/mcL RBC (4.19-5.50) M/mcL Hgb (12.9-16.9) g/dL Hct (37.5-50.1) % MCV (83.0-100.0) fL MCH (28.0-33.3) pg MCHC (31.6-35.5) g/dL RDW (11.5-14.5) % Plt Count (140-400) K/mcL MPV (9.4-12.4) fL Immature Gran % (0-4) % Seg Neutrophils % % Lymphocytes % % Monocytes % % Eosinophils % % Basophils % % Neutrophils # (1.6-8.9) K/mcL Lymphocytes # (0.6-4.6) K/mcL Monocytes # (0.0-1.3) K/mcL Eosinophils # (0.0-0.6) K/mcL Basophils # (0.0-0.2) K/mcL Sodium (136-145) mEq/L Potassium (3.5-5.1) mEq/L Chloride (98-107) mEq/L Carbon Dioxide (23-29) mEq/L BUN (6-20) mg/dL Creatinine (0.70-1.30) mg/dL Est GFR ( Amer) (> 60) Est GFR (Non-Af Amer) (> 60) BUN/Creatinine Ratio (6-26) Glucose (70-105) mg/dL Calculated Osmolality (280-300) Lactic Acid (0.5-2.2) mmol/L Calcium (8.6-10.3) mg/dL Phosphorus 3.0 (2.7-4.5) mg/dL Magnesium 1.7 (1.6-2.6) mg/dL Total Bilirubin 0.4 (0.3-1.0) mg/dL Direct Bilirubin 0.1 (0.0-0.2) mg/dL Indirect Bilirubin 0.3 (0.0-1.2) mg/dL AST 30 (13-39) Units/L ALT 120 H (7-52) Units/L Alkaline Phosphatase 63 (34-104) Units/L Troponin I (< 0.04) ng/mL Serum Total Protein 6.3 L (6.4-8.9) g/dL Albumin 3.8 (3.5-5.7) g/dL Globulin 2.5 (2.4-3.5) g/dL Albumin/Globulin Ratio 1.5 (1.1-2.2) Urine Color Yellow (Yellow) Urine Clarity Clear (Clear) Urine pH 6.5 (5.0-8.0) pH Units Ur Specific [place] 1.018 (1.010-1.025) Urine Protein Negative (Neg-Trace) mg/dL Urine Glucose (UA) Normal (Normal) mg/dL Urine Ketones Negative (Negative) mg/dL Urine Blood Negative (Negative) Urine Nitrite Negative (Negative) Urine Bilirubin Negative (Negative) Urine Urobilinogen Normal (Normal) mg/dL Ur Leukocyte Esterase Negative (Negative) Ur Culture Indicated? NO (NO) Critical Care Time Critical Care Time: Yes Total Critical Care Time: 31 Attestation: Excluding any separately billable procedures. Attestation Statement - Attestation Attestation: This documentation is done with the assistance of Dragon dictation. Despite efforts made to ensure accuracy, there may be inaccuracies in bill of materials clerk or spelling and typographical errors. I examined this patient and my medical decision-making was reviewed with the Resident Physician. I agree with the documented findings, disposition and treatment plan as described except to the extent set forth below. Patient seen and evaluated today by Dr. Perez myself, I agree with his evaluation management plan, supervise care the patient's stay. Patient transported by EMS from the [facility] secondary to acute exacerbation of COPD denies any chest pain at this time. They did breathing treatments on him with some imp rovement no transport with oxygen. Placed him on oxygen here breathing treatment and workup and most likely admission. He is in agreement with plan.
[2018-06-14] MEDS ORDERED: Piperacillin/Tazobactam 3.375 GM in Water for inj. (sterile) 20 ML 20 ML IVP ONE (07:09)
--- NOTE | 2018-06-14 07:16 | Emergency Department Note ---
Disposition Clinical Impression: COPD with acute exacerbation, Elevated ALT measurement Dyspnea Qualifiers: Dyspnea type: shortness of breath Qualified Code(s): R06.02 - Shortness of breath Disposition: Admitted As Inpatient Condition: Fair Time of Disposition: 09:29 SOB HPI - General Chief Complaint: ED Shortness of Breath/Dyspnea Stated Complaint: lissett Time Seen by Provider: 06/14/18 07:02 Nursing Notes Reviewed: Yes Vital Signs Reviewed: Yes - History of Present Illness 58yo male presents from [place] inpatient psychiatric facility for evaluation of dyspnea. Onset this morning abruptly. History of COPD with home controlling MDI and home O2 2L continuous via [place]. Patient arrives via [place] fire department, no O2. Patient denies any cough, fever, chest pain. PMH: COPD Patient denies history of CAD, ACS, DM, HTN, HLD. ROS: Pos: as above Neg: fever, chills, nausea, vomiting, CP , palpitations, abdominal pain. - Related Data Home Medications Medication Instructions Recorded Confirmed Albuterol Sulfate [Albuterol 0 puff IH Q4HR 06/14/16 06/15/16 Inhaler] Aspirin [Lo-Dose Aspirin EC] 81 mg PO DAILY 06/14/16 06/15/16 Budesonide/Formoterol 160/4.5 2 puff IH BIDR 06/14/16 06/15/16 [Symbicort 160/4.5] Cholecalciferol (D-3) [Vitamin D] 1,000 unit PO DAILY 06/14/16 06/15/16 Tiotropium [Spiriva] 1 cap IH DAILY 06/14/16 06/15/16 Acetaminophen [Tylenol] 325 - 650 mg PO Q6HR PRN 06/15/16 06/15/16 hydroCHLOROthiazide 25 mg PO DAILY 06/15/16 06/15/16 [Hydrochlorothiazide] Previous Rx's Medication Instructions Recorded Ipratropium/Albuterol Neb [Duoneb] 3 ml IH [id number] PRN #60 inhsol 06/16/16 Losartan [Cozaar] 25 mg PO DAILY #30 tablet 06/16/16 Nicotine Patch [Nicoderm] 14 mg TD DAILY #30 patch.td24 06/16/16 levoFLOXacin [Levaquin] 750 mg PO Q24H #4 tablet 06/16/16 predniSONE [PredniSONE] 60 mg PO DAILY #54 tablet 06/16/16 Allergies Allergy/AdvReac Type Severity Reaction Status Date / Time No Known Allergies Allergy Verified 06/14/18 06:58 All systems ED: reviewed and negative except as stated. Review of Systems: As Per HPI Past Medical History - Past Medical History Medical history: Reports: COPD, hypertension Surgical history: Reports: no surgical history Psychiatric history: Reports: no psych history - Social History Smoking Status: Current every day smoker Smokeless Tobacco Status: No Alcohol use: Reports: none Drug use: Reports: marijuana Physical Exam Vital Signs Reviewed General: Patient is alert, oriented, and in respiratory distress. He has one word conversational dyspnea, exertional symptoms, markedly tachypneic. Head: atraumatic, normocephalic Eye: normal appearance, PERRL, EOMI, no scleral icterus, no conjunctival injection ENT: mucous membranes moist, normal external ear exam Neck: normal inspection, trachea midline, full ROM Chest: normal inspection, symmetric chest rise Respiratory: Good respiratory effort. Bilateral breath sounds are equally diminished with decreased air entry. No wheeze, crackles, or rhonchi. Cardiovascular: Regular rate and rhythm. No clicks, rubs, gallops, or murmors. Normal heart sounds. Abdomen: Bowel sounds present normoactive x-4 quadrants. Abdomen is soft, nondistended, and nontender. No guarding or rebound. Musculoskeletal: Spontaneously moving all extremities. Skin: warm, dry, intact. Neuro: Alert and oriented x4. Sensation light touch intact. Psych: Patient's affect is appropriate for situation. Course Course Narrative: [facility] PM[facility]: COPD, hypertension, history of cocaine dependence in remission, tobacco use, history of alcohol use in remission, chronic paranoid schizophrenia Medications include current active prednisone, Cipro, metoprolol, risperidone, lorazepam, potassium supplementation, nicotine patch, hydrochlorothiazide, allopurinol EKG #1 EKG data 06/14/2018 at 06 159 interpreted as sinus tachycardia with a rate of 152. DE 100, QRS 106, QTC 44. Normal axis. Nonspecific ST-T changes. Compared to previous EKG dated 06/14/2016 showing no acute ischemic changes brandon rison. Patient is CP free on EKG #1 above. Will repeat EKG and reassess patient after nebs. Patient is SIRS (+) via temp, tachycardia. Will empirically treat for HCAP with vancomycin and zosyn given he is transferred from [place] psychiatric unit. EKG #2 EKG date at 08:27 interpreted as sinus tachycardia with a rate of 138. DE 117, QRS 85, QTC 400. Normal axis. Nonspecific ST T changes. Improvement in rate with no change in rhythm from EKG #1 above. Chest x-ray my evaluation and by radiology read shows mild COPD. Service hematology shows leukocytosis. Per [place] records, patient is currently on prednisone. Serum chemistry shows ALT elevation. No history of hepatitis. This could be secondary to his psychiatric medications. Most recent comparative lab was from 2 years ago and was normal. No elevation in lactic acid. Patient has no elevation of troponin and remains chest pain-free I discussed the above with the patient. He is agreeable to admission for continued pulmonary evaluation. I discussed the above with the admitting hospitalist, Dr. Priest, who agrees to accept the patient for acute exacerbation of COPD. Chest X-Ray 06/14/18 07:02 IMPRESSION: Mild COPD. D/ / Markell Joaquin MD / Markell Joaquin MD Interpreting Provider: Markell Joaquin MD Vital Signs O2 Sat by Pulse Oximetry 98 06/14/18 06:59 Temperature 98.2 F 06/14/18 11:02 Pulse Rate 113 06/14/18 11:02 Respiratory Rate 24 06/14/18 11:51 Blood Pressure 114/82 06/14/18 11:02 O2 Sat by Pulse Oximetry 96 06/14/18 11:51 Oxygen Delivery Oxygen Delivery Non Rebreather Mask Shortness of Breath/Dyspnea - Lab Data Result diagrams: 06/14/18 07:55 06/14/18 07:55 Lab Results 06/14/18 06/14/18 06/14/18 Range/Units 07:55 07:55 07:55 WBC 21.4 H (4.3-11.1) K/mcL RBC 4.25 (4.19-5.50) M/mcL Hgb 13.2 (12.9-16.9) g/dL Hct 39.6 (37.5-50.1) % MCV 93.2 (83.0-100.0) fL MCH 31.1 (28.0-33.3) pg MCHC 33.3 (31.6-35.5) g/dL RDW 13.7 (11.5-14.5) % Plt Count 315 (140-400) K/mcL MPV 10.2 (9.4-12.4) fL Immature Gran % 2.4 (0-4) % Seg Neutrophils % 88.0 % Lymphocytes % 3.5 % Monocytes % 5.8 % Eosinophils % 0.1 % Basophils % 0.2 % Neutrophils # 18.9 H (1.6-8.9) K/mcL Lymphocytes # 0.8 (0.6-4.6) K/mcL Monocytes # 1.2 (0.0-1.3) K/mcL Eosinophils # 0.0 (0.0-0.6) K/mcL Basophils # 0.0 (0.0-0.2) K/mcL Sodium 135 L (136-145) mEq/L Potassium 4.4 (3.5-5.1) mEq/L Chloride 96 L (98-107) mEq/L Carbon Dioxide 30 H (23-29) mEq/L BUN 28 H (6-20) mg/dL Creatinine 0.84 (0.70-1.30) mg/dL Est GFR ( Amer) > 60 (> 60) Est GFR (Non-Af Amer) > 60 (> 60) BUN/Creatinine Ratio 33 H (6-26) Glucose 127 H (70-105) mg/dL Calculated Osmolality 287 (280-300) Lactic Acid 1.5 (0.5-2.2) mmol/L Calcium 9.0 (8.6-10.3) mg/dL Phosphorus (2.7-4.5) mg/dL Magnesium (1.6-2.6) mg/dL Total Bilirubin (0.3-1.0) mg/dL Direct Bilirubin (0.0-0.2) mg/dL Indirect Bilirubin (0.0-1.2) mg/dL AST (13-39) Units/L ALT (7-52) Units/L Alkaline Phosphatase (34-104) Units/L Troponin I 0.03 (< 0.04) ng/mL Serum Total Protein (6.4-8.9) g/dL Albumin (3.5-5.7) g/dL Globulin (2.4-3.5) g/dL Albumin/Globulin Ratio (1.1-2.2) Urine Color (Yellow) Urine Clarity (Clear) Urine pH (5.0-8.0) pH Units Ur Specific [place] (1.010-1.025) Urine Protein (Neg-Trace) mg/dL Urine Glucose (UA) (Normal) mg/dL Urine Ketones (Negative) mg/dL Urine Blood (Negative) Urine Nitrite (Negative) Urine Bilirubin (Negative) Urine Urobilinogen (Normal) mg/dL Ur Leukocyte Esterase (Negative) Ur Culture Indicated? (NO) 06/14/18 06/14/18 Range/Units 07:55 08:45 WBC (4.3-11.1) K/mcL RBC (4.19-5.50) M/mcL Hgb (12.9-16.9) g/dL Hct (37.5-50.1) % MCV (83.0-100.0) fL MCH (28.0-33.3) pg MCHC (31.6-35.5) g/dL RDW (11.5-14.5) % Plt Count (140-400) K/mcL MPV (9.4-12.4) fL Immature Gran % (0-4) % Seg Neutrophils % % Lymphocytes % % Monocytes % % Eosinophils % % Basophils % % Neutrophils # (1.6-8.9) K/mcL Lymphocytes # (0.6-4.6) K/mcL Monocytes # (0.0-1.3) K/mcL Eosinophils # (0.0-0.6) K/mcL Basophils # (0.0-0.2) K/mcL Sodium (136-145) mEq/L Potassium (3.5-5.1) mEq/L Chloride (98-107) mEq/L Carbon Dioxide (23-29) mEq/L BUN (6-20) mg/dL Creatinine (0.70-1.30) mg/dL Est GFR ( Amer) (> 60) Est GFR (Non-Af Amer) (> 60) BUN/Creatinine Ratio (6-26) Glucose (70-105) mg/dL Calculated Osmolality (280-300) Lactic Acid (0.5-2.2) mmol/L Calcium (8.6-10.3) mg/dL Phosphorus 3.0 (2.7-4.5) mg/dL Magnesium 1.7 (1.6-2.6) mg/dL Total Bilirubin 0.4 (0.3-1.0) mg/dL Direct Bilirubin 0.1 (0.0-0.2) mg/dL Indirect Bilirubin 0.3 (0.0-1.2) mg/dL AST 30 (13-39) Units/L ALT 120 H (7-52) Units/L Alkaline Phosphatase 63 (34-104) Units/L Troponin I (< 0.04) ng/mL Serum Total Protein 6.3 L (6.4-8.9) g/dL Albumin 3.8 (3.5-5.7) g/dL Globulin 2.5 (2.4-3.5) g/dL Albumin/Globulin Ratio 1.5 (1.1-2.2) Urine Color Yellow (Yellow) Urine Clarity Clear (Clear) Urine pH 6.5 (5.0-8.0) pH Units Ur Specific [place] 1.018 (1.010-1.025) Urine Protein Negative (Neg-Trace) mg/dL Urine Glucose (UA) Normal (Normal) mg/dL Urine Ketones Negative (Negative) mg/dL Urine Blood Negative (Negative) Urine Nitrite Negative (Negative) Urine Bilirubin Negative (Negative) Urine Urobilinogen Normal (Normal) mg/dL Ur Leukocyte Esterase Negative (Negative) Ur Culture Indicated? NO (NO)
[2018-06-14] MEDS: 0.9 % Sodium Chloride 1,000 ML IVC SCH ×2 (07:44→19:11)
[2018-06-14 08:22] LABS: Basophils % 0.2 %; Eosinophils % 0.1 %; Hematocrit 39.6 % (37.5-50.1); Hemoglobin 13.2 g/dL (12.9-16.9); Immature Granulocytes % 2.4 % (0-4); Lymphocytes # 0.8 K/mcL (0.6-4.6); Lymphocytes % 3.5 %; Mean Corpuscular HGB Conc 33.3 g/dL (31.6-35.5); Mean Corpuscular Hemoglobin 31.1 pg (28.0-33.3); Mean Corpuscular Volume 93.2 fL (83.0-100.0); Mean Platelet Volume 10.2 fL (9.4-12.4); Monocytes # 1.2 K/mcL (0.0-1.3); Monocytes % 5.8 %; Neutrophils # 18.9 K/mcL (1.6-8.9); Platelet Count 315 K/mcL (140-400); Red Blood Count 4.25 M/mcL (4.19-5.50); Red Cell Distribution Width 13.7 % (11.5-14.5)
[2018-06-14 08:42] LABS: Albumin 3.8 g/dL (3.5-5.7); Albumin/Globulin Ratio 1.5 (1.1-2.2); Bilirubin,Direct 0.1 mg/dL (0.0-0.2); Bilirubin,Indirect 0.3 mg/dL (0.0-1.2); Bilirubin,Total 0.4 mg/dL (0.3-1.0); Globulin 2.5 g/dL (2.4-3.5); Magnesium 1.7 mg/dL (1.6-2.6); Total Protein 6.3 g/dL (6.4-8.9)
[2018-06-14 08:43] LABS: BUN/Creatinine Ratio 33 (6-26); Blood Urea Nitrogen 28 mg/dL (6-20); Carbon Dioxide 30 mEq/L (23-29); Chloride 96 mEq/L (98-107); Glucose 127 mg/dL (70-105); Osmolality,Calculated 287 (280-300); Potassium 4.4 mEq/L (3.5-5.1); Sodium 135 mEq/L (136-145); Troponin I 0.03 ng/mL (< 0.04); eGFR For Non-African Americans > 60 (> 60)
[2018-06-14 08:58] LABS: Bilirubin,Urine Negative (Negative); Blood,Urine Negative (Negative); Clarity,Urine Clear (Clear); Color,Urine Yellow (Yellow); Glucose,Urine (UA) Normal (Normal); Ketones,Urine Negative (Negative); Leukocyte Esterase,Urine Negative (Negative); Nitrite,Urine Negative (Negative); PH,Urine 6.5 pH Units (5.0-8.0); Protein,Urine Negative (Neg-Trace); Specific Gravity,Urine 1.018 (1.010-1.025); Urobilinogen,Urine Normal (Normal)
--- NOTE | 2018-06-14 09:39 | Electrocardiograph Report ---
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
--- NOTE | 2018-06-14 09:41 | Electrocardiograph Report ---
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
--- NOTE | 2018-06-14 09:43 | Internal Med History&Physical ---
<Sunday De La Garza - Last Filed: 06/14/18 11:08> Date of Encounter: 06/14/18 Time of Encounter: 09:36 Internal Medicine - H&P: HPI Chief complaint: Shortness of breath Admitted From: Home History of present illness: Mr. Mullins is a 58 year old male with a past medical history of oxygen dependent COPD, hypertension, chronic paranoid schizophrenia, history of alcohol use and cocaine dependence in remission, and tobacco dependence who was transferred from the [facility] medical unit complaining of worsening shortness of breath and fever this morning. He reports excessive of yellow phlegm production, pedal edema, and multiple sick contacts. Of note, patient was hospitalized and treated for COPD exacerbation at [facility] last week and transferred to the [facility] 7 days ago. He has been on the medical unit at the [facility] secondary to shortness of breath while awaiting a psych bed for suicidal ideation. Patient denies active suicidal or homicidal ideation at this time. In the ED patient met SIRS criteria with elevated temperature 100 F, leukocytosis WBC 21.4, and tachycardia heart rate 151. He was started on empiric broad-spectrum vancomycin and Zosyn for possible HCAP and IV steroids with improvement in dyspnea. Lactic acid was negative and blood cultures are pending. Past Med Surg Social Fam HX - Past Medical History Medical history: COPD, hypertension Psychiatric history: depression - Past Surgical History Surgical History: no surgical history - Social History Smoking Status: Current every day smoker Smokeless Tobacco Status: No Alcohol use: none Drug use: marijuana - Family History Mother Living Status: Hx Family Cardiac Disorders: Yes (ID) Hx Family Cancer: Yes (Lung) Father Living Status: Hx Family Cardiac Disorders: Yes (HTN) Hx Family Cancer: Yes Sister Living Status: Cause of : Renal failure Internal Medicine - H&P: Meds Albuterol Sulfate [Albuterol Inhaler] 0 puff IH Q4HR 06/14/16 [History] Aspirin [Lo-Dose Aspirin EC] 81 mg PO DAILY 06/14/16 [History] Budesonide/Formoterol 160/4.5 [Symbicort 160/4.5] 2 puff IH BIDR 06/14/16 [Hi story] Cholecalciferol (D-3) [Vitamin D] 1,000 unit PO DAILY 06/14/16 [History] Tiotropium [Spiriva] 1 cap IH DAILY 06/14/16 [History] Acetaminophen [Tylenol] 325 - 650 mg PO Q6HR PRN 06/15/16 [History] hydroCHLOROthiazide [Hydrochlorothiazide] 25 mg PO DAILY 06/15/16 [History] Ipratropium/Albuterol Neb [Duoneb] 3 ml IH [id number] PRN #60 inhsol 06/16/16 [Rx] Losartan [Cozaar] 25 mg PO DAILY #30 tablet 06/16/16 [Rx] Nicotine Patch [Nicoderm] 14 mg TD DAILY #30 patch.td24 06/16/16 [Rx] levoFLOXacin [Levaquin] 750 mg PO Q24H #4 tablet 06/16/16 [Rx] predniSONE [PredniSONE] 60 mg PO DAILY #54 tablet 06/16/16 [Rx] Allergy/AdvReac Type Severity Reaction Status Date / Time No Known Allergies Allergy Verified 06/14/18 06:58 All Systems PM: A 10-system review of systems was performed and is negative for pertinent findings except as documented above in the HPI. - Constitutional Constitutional: fever(s), no chills - EENT Eyes: no blurry vision, no change in vision Nose, mouth and throat: no epistaxis, no sinus pain, no sore throat - Cardiovascular Cardiovascular ROS IM: dyspnea, edema, palpitations, no chest pain - Respiratory Respiratory: cough, excessive phlegm production - Gastrointestinal Gastrointestinal: no abdominal pain, no diarrhea, no nausea, no vomiting - Genitourinary Genitourinary ROS male: no dysuria, no urinary frequency, no urinary urgency - Musculoskeletal Musculoskeletal ROS IM: no back pain, no numbness, no tingling - Integumentary Integumentary IM: no erythema, no rash - Neurological Neurological ROS: no abnormal gait, no dizziness, no weakness - Psychiatric Psychiatric: anxiety, no depression - Endocrine Endocrine IM: no polydipsia, no polyphagia, no polyuria - Constitutional Vitals: Temp Pulse Resp BP Pulse Ox 100 F H 147 32 155/85 95 06/14/18 07:02 06/14/18 07:57 06/14/18 07:57 06/14/18 07:57 06/14/18 07:10 General appearance: Present: cooperative, mild distress (Tripoding, conversant), pleasant, answers questions appropriately Exam: Disheveled - Head Head exam: Present: atraumatic, normal inspection, normocephalic - Eye Eye exam: Present: EOMI, normal appearance - ENT ENT exam: Present: mucous membranes dry, normal oropharynx - Neck Neck exam general surgery: Present: normal inspection, supple - Respiratory Respiratory exam: Present: accessory muscle use (Wearing nonrebreather mask), prolonged expiratory phase, respiratory distress (Mild), wheezes (Diffuse), tachypnea (Tripoding) - Cardiovascular Cardiovascular exam: Present: tachycardia. Absent: gallop, rubs, systolic murmu r - GI/Abdominal GI/Abdominal exam: Present: soft. Absent: distended, tenderness - Extremities Exam Extremities exam: Present: full ROM, pedal edema (1+) - Back Exam Back exam: Present: normal inspection. Absent: paraspinal tenderness, tenderness - Neurological Exam Neurological exam: Present: alert, CN II-XII intact, oriented X3, no focal deficits, strengths equal and symetr throughout. Absent: speech deficit - Psychiatric Psychiatric exam: Present: anxious. Absent: depressed - Skin Skin exam: Present: dry, warm. Absent: rash Internal Med - H&P Results - Labs CBC & Chem 7: 06/14/18 07:55 06/14/18 07:55 Labs: Short CBC 06/14/18 Range/Units 07:55 WBC 21.4 H (4.3-11.1) K/mcL Hgb 13.2 (12.9-16.9) g/dL Hct 39.6 (37.5-50.1) % Plt Count 315 (140-400) K/mcL Neutrophils # 18.9 H (1.6-8.9) K/mcL BMP 06/14/18 07:55 Sodium 135 L Potassium 4.4 Chloride 96 L Carbon Dioxide 30 H BUN 28 H Creatinine 0.84 Glucose 127 H Calcium 9.0 Cardiac Enzymes 06/14/18 Range/Units 07:55 Troponin I 0.03 (< 0.04) ng/mL Liver Function 06/14/18 Range/Units 07:55 Total Bilirubin 0.4 (0.3-1.0) mg/dL Direct Bilirubin 0.1 (0.0-0.2) mg/dL AST 30 (13-39) Units/L ALT 120 H (7-52) Units/L Alkaline Phosphatase 63 (34-104) Units/L Albumin 3.8 (3.5-5.7) g/dL Urine 06/14/18 Range/Units 08:45 Urine Color Yellow (Yellow) Urine Clarity Clear (Clear) Urine pH 6.5 (5.0-8.0) pH Units Ur Specific [place] 1.018 (1.010-1.025) Urine Protein Negative (Neg-Trace) mg/dL Urine Glucose (UA) Normal (Normal) mg/dL - Pulse Oximetry Interpretation Digit-Finger O2 Sat by Pulse Oximetry: 95 (On nonrebreather mask) Actions taken: none - EKG Data -: EKG Interpreted by Myself EKG shows normal: sinus rhythm (sinus tachycardia with a rate of 152. NM 100, QRS 106, QTC 44. Normal axis. Nonspecific ST-T changes. ) Rate: tachycardia - Impressions ITS Impressions Chest X-Ray 06/14/18 07:02 IMPRESSION: Mild COPD. D/ / Markell Joaquin MD / Markell Joaquin MD Interpreting Provider: Markell Joaquin MD - Assessment and Plan (1) Acute and chronic respiratory failure with hypoxia Current Visit: Yes Status: Acute Assessment and plan: Patient actively tripoding in the ED. Start BiPAP therapy at this time. Patient wears 2 L oxygen continuously at baseline. CTA chest ordered to r/o PE. Well's score 4.5 (PE likely, tachycardia). Continue bronchodilators. ABG pending. Closely monitor. Patient is at high risk for worsening clinical status, low threshold for intubation. Full code. (2) Acute exacerbation of chronic obstructive airways disease Current Visit: Yes Status: Acute Assessment and plan: Patient was hospitalized and treated for COPD exacerbation at [facility] last week and transferred to the NH 7 days ago. Continue IV steroids and IV antibiotics (Vanc, Zosyn, Levaquin) for possible HCAP. CXR revealed COPD. Consider repeat CXR after IV hydration for re-evaluate for PNA. Blood cultures, respiratory infectious panel, urine strep pneumo and legionella antigens pending. Continue Xopenex secondary to persistent tachycardia with albuterol nebs. (3) HTN (hypertension) Current Visit: No Status: Chronic Assessment and plan: Blood pressure controlled. Continue monitoring. Qualifiers: Hypertension type: essential hypertension Qualified Code(s): I10 - Essential (primary) hypertension (4) Tobacco abuse Current Visit: Yes Status: Chronic Assessment and plan: Tobacco cessation discussed. Nicotine patch ordered. (5) Paranoid schizophrenia, chronic condition Current Visit: Yes Status: Acute Assessment and plan: Patient has been on the medical unit at the NH secondary to shortness of breath while awaiting a psych bed for suicidal ideation. Patient denies active suicidal or homicidal ideation at this time. Outpatient management. - Time Spent With Patient Total time spent is greater than 50% in coordination of care (as documented) at patient's floor/unit and/or counseling patient: <MorenitaZayda herzog - Last Filed: 06/14/18 14:31> Date of Encounter: 06/14/18 Internal Medicine - H&P: HPI History of present illness: Mr. Mullins is a 58 year old male All Systems PM: A 10-system review of systems was performed and is negative for pertinent findings except as documented above in the HPI. - Constitutional Vitals: Temp Pulse Resp BP Pulse Ox 98.2 F 113 24 114/82 96 06/14/18 11:02 06/14/18 11:02 06/14/18 11:51 06/14/18 11:02 06/14/18 11:51 Internal Med - H&P Results - Labs CBC & Chem 7: 06/14/18 07:55 06/14/18 07:55 Labs: Short CBC 06/14/18 Range/Units 07:55 WBC 21.4 H (4.3-11.1) K/mcL Hgb 13.2 (12.9-16.9) g/dL Hct 39.6 (37.5-50.1) % Plt Count 315 (140-400) K/mcL Neutrophils # 18.9 H (1.6-8.9) K/mcL BMP 06/14/18 07:55 Sodium 135 L Potassium 4.4 Chloride 96 L Carbon Dioxide 30 H BUN 28 H Creatinine 0.84 Glucose 127 H Calcium 9.0 Cardiac Enzymes 06/14/18 Range/Units 07:55 Troponin I 0.03 (< 0.04) ng/mL Liver Function 06/14/18 Range/Units 07:55 Total Bilirubin 0.4 (0.3-1.0) mg/dL Direct Bilirubin 0.1 (0.0-0.2) mg/dL AST 30 (13-39) Units/L ALT 120 H (7-52) Units/L Alkaline Phosphatase 63 (34-104) Units/L Albumin 3.8 (3.5-5.7) g/dL Urine 06/14/18 Range/Units 08:45 Urine Color Yellow (Yellow) Urine Clarity Clear (Clear) Urine pH 6.5 (5.0-8.0) pH Units Ur Specific [place] 1.018 (1.010-1.025) Urine Protein Negative (Neg-Trace) mg/dL Urine Glucose (UA) Normal (Normal) mg/dL - ABG Interpretation ABG results: 06/14/18 11:43 ABG pH 7.34 ABG pCO2 56 H ABG pO2 129 H ABG HCO3 30 H ABG Total CO2 32 H ABG O2 Saturation 99 H ABG Base Excess 3 - Impressions ITS Impressions Chest X-Ray 06/14/18 07:02 IMPRESSION: Mild COPD. D/ / Markell Joaquin MD / Markell Joaquin MD Interpreting Provider: Markell Joaquin MD Chest CTA 06/14/18 10:56 IMPRESSION: No evidence of pulmonary embolism. Multiple tree-in-bud and ground-glass nodules throughout the right middle lobe and right lower lobe and to a lesser degree in the right upper lobe suggesting an atypical pneumonia. Multiple likely infectious/inflammatory nodules throughout the right lung. Recommend close interval follow-up to resolution. Moderate to severe centrilobular emphysema. The findings were sent to the Radiology Results Communication Center at 12:00 pm on 06/14/2018to be communicated to a licensed caregiver. D/ /14/2018 12:04:47 Salvatore Marcus MD / winter Interpreting Provider: Salvatore Marcus MD - Assessment and Plan (1) Acute exacerbation of chronic obstructive airways disease Current Visit: Yes Status: Acute (2) HTN (hypertension) Current Visit: No Status: Chronic Qualifiers: Hypertension type: essential hypertension Qualified Code(s): I10 - Essential (primary) hypertension (3) Tobacco abuse Current Visit: Yes Status: Chronic (4) Acute and chronic respiratory failure with hypoxia Current Visit: Yes Status: Acute (5) Paranoid schizophrenia, chronic condition Current Visit: Yes Status: Acute - Time Spent With Patient Total time spent is greater than 50% in coordination of care (as documented) at patient's floor/unit and/or counseling patient: - Attending Attestation I examined this patient and my medical decision-making was reviewed with the Resident Physician Dr. De La Garza. I agree with the documented findings, disposition and treatment plan as described except to the extent set forth below. 58 y/o male with history of oxygen dependent COPD, hypertension, chronic paranoid schizophrenia, history of alcohol use and cocaine dependence in remission, and tobacco dependence who was transferred from the [facility] medical unit complaining of worsening shortness of breath and fever this morning. he reports that his SOb had gradual onset progresssively worsened. SOB is associated with productive cough with yellow sputum, denies hemoptysis. denies chest pain however does complain of wheezing. he was seem for similar sx at [facility]. he was waiting for a bed at the [facility] facility. he has recieved Abx, steroids and inhalors with improvement of his respiratory status. he denies fever, chills, CP, palpitations, leg swelling,calf tenderness. is inquiring about diet. has no suicidal or homicidal ideations. pmhx, social and family hx as above VS reviewed mild distress on bipap, answers questions appropriatly wheezing in maxim posterior and anterior chest with diffuse crackles tachycardic, s1 and s2 abdomen is soft Axox3 no focal deficit A/P acute on chronic hypoxic respiratory failure requiring NIMV ruled out PE sepsis secondary to multifocal PNA COPD exacerbation continue with steroids, Abx and duo-nebs respiratory viral panel, urine antigens and sputum cx, blood cx in process. Bipap as neede for respiratory distress/ oxygen via nasal cannula - avoid over oxygenation. chronic paranoid schizophrenia, history of alcohol use and cocaine dependence in remission, and tobacco dependence- thiamine, continue psych medications if not CI, currently has no HI or SI. to be transferred to [facility] once medically cleared. DVt prophylaxis: SC heparin further plan and diagnosis as above documented by resident
[2018-06-14] MEDS ORDERED: Ondansetron 4 MG/2 ML VIAL IVP PRN (10:07)
[2018-06-14] MEDS ORDERED: Naloxone 0.4 MG/ML INJ IVP PRN ×2 (10:07→10:12)
[2018-06-14] MEDS ORDERED: Isovue-370 500 ML BOTTLE IVP ONE (10:56)
[2018-06-14] MEDS: Levalbuterol Neb 1.25 MG/3 ML IH SCH ×4 (11:44→23:57)
[2018-06-14 11:47] LABS: ABG Base Excess 3 mEq/L (-2 to 3); ABG HCO3 30 mEq/L (21-27); ABG Oxygen Saturation 99 % (95-98); ABG PCO2 56 mmHg (35-45); ABG PH 7.34 pH Units (7.32-7.45); ABG PO2 129 mmHg (85-104); ABG TCO2 32 mEq/L (20-26)
[2018-06-14] MEDS ORDERED: Ipratropium 1 PUFF INHALER IH SCH (12:00)
[2018-06-14] MEDS: MethylPREDNISolone 40 MG/ML VIAL IVP SCH ×3 (14:33→23:11)
[2018-06-14] MEDS: Levofloxacin 750 MG/150 ML 750 MG/150 ML BAG IVPB SCH (14:33)
[2018-06-14] MEDS: *HR* Heparin 5,000 UNIT/ML VIAL SQ SCH ×2 (14:33→23:11)
[2018-06-14] MEDS: Ipratropium Neb 0.5 MG NEBULIZER IH SCH ×3 (16:02→23:57)
[2018-06-14] MEDS: Thiamine (B-1) 100 MG TABLET PO SCH (17:31)
[2018-06-14] MEDS: Piperacillin/Tazobactam 3.375 GM in 0.9 % Sodium Chloride Mini Bag 100 ML IVPB SCH ×2 (17:32→23:10)
[2018-06-14 19:26] LABS: Adenovirus Not Detected (Not Detect); Bordetella Pertussis Not Detected (Not Detect); Chlamydophila pneumoniae Not Detected (Not Detect); Coronavirus 229E Not Detected (Not Detect); Coronavirus HKU1 Not Detected (Not Detect); Coronavirus NL63 Not Detected (Not Detect); Coronavirus OC43 Not Detected (Not Detect); Human Metapneumovirus DETECTED (Not Detect); Human Rhinovirus/Enterovirus Not Detected (Not Detect); Influenza A Subtype 2009 H1 Not Detected (Not Detect); Influenza A Untypeable Not Detected (Not Detect); Influenza B Not Detected (Not Detect); Mycoplasma pneumoniae Not Detected (Not Detect); Parainfluenza Virus 1 Not Detected (Not Detect); Parainfluenza Virus 2 Not Detected (Not Detect); Parainfluenza Virus 3 Not Detected (Not Detect); Parainfluenza Virus 4 Not Detected (Not Detect); Respiratory Syncytial Virus Not Detected (Not Detect)
[2018-06-14] MEDS: Acetaminophen 325 MG TABLET PO PRN (19:47)
[2018-06-15] MEDS: Acetaminophen 325 MG TABLET PO PRN (04:01)
[2018-06-15] MEDS: Levalbuterol Neb 1.25 MG/3 ML IH SCH ×5 (04:08→20:19)
[2018-06-15] MEDS: Ipratropium Neb 0.5 MG NEBULIZER IH SCH ×5 (04:08→20:19)
[2018-06-15] MEDS: MethylPREDNISolone 40 MG/ML VIAL IVP SCH ×2 (05:07→17:54)
[2018-06-15] MEDS: *HR* Heparin 5,000 UNIT/ML VIAL SQ SCH ×3 (05:07→22:07)
[2018-06-15 07:02] LABS: Basophils % 0.2 %; Hemoglobin 12.8 g/dL (12.9-16.9); Immature Granulocytes % 2.1 % (0-4); Mean Corpuscular HGB Conc 32.8 g/dL (31.6-35.5); Mean Corpuscular Hemoglobin 31.1 pg (28.0-33.3); Red Cell Distribution Width 13.8 % (11.5-14.5); Segmented Neutrophils % 92.7 %
[2018-06-15 07:04] LABS: Basophils # 0.1 K/mcL (0.0-0.2); Lymphocytes # 0.5 K/mcL (0.6-4.6); Mean Corpuscular Volume 94.7 fL (83.0-100.0); Monocytes # 0.8 K/mcL (0.0-1.3); Neutrophils # 24.2 K/mcL (1.6-8.9); Platelet Count 311 K/mcL (140-400); Red Blood Count 4.12 M/mcL (4.19-5.50)
[2018-06-15] MEDS: Tiotropium 18 MCG inhalation IH SCH (07:34)
[2018-06-15 07:39] LABS: BUN/Creatinine Ratio 29 (6-26); Blood Urea Nitrogen 18 mg/dL (6-20); Calcium 9.1 mg/dL (8.6-10.3); Carbon Dioxide 29 mEq/L (23-29); Chloride 96 mEq/L (98-107); Glucose 158 mg/dL (70-105); Osmolality,Calculated 289 (280-300); Potassium 3.9 mEq/L (3.5-5.1); Sodium 137 mEq/L (136-145); eGFR For Non-African Americans > 60 (> 60)
[2018-06-15 07:56] LABS: Platelet Estimate Normal (Normal)
[2018-06-15] MEDS: Thiamine (B-1) 100 MG TABLET PO SCH (08:50)
[2018-06-15] MEDS: Nicotine 21 MG PATCH.TD24 TD SCH (08:50)
[2018-06-15] MEDS: Piperacillin/Tazobactam 3.375 GM in 0.9 % Sodium Chloride Mini Bag 100 ML IVPB SCH ×2 (08:50→15:29)
[2018-06-15] MEDS ORDERED: Aminoglycoside Consult 1 EACH MC ONE (09:06)
--- NOTE | 2018-06-15 11:50 | Internal Med Progress Note ---
Hospitalist Progress Note - Encounter Date of Encounter: 06/15/18 Time of Encounter: 11:42 - Subjective Interval History: Sitting on chair watching TV. Shortness of breath and cough better. Sitter at bedside. Review the lab. Talk to his psychiatrist at [place] Denies fever chills nausea vomiting headache dizziness chest pain abdominal pain diarrhea - Exam Vitals: Temp Pulse Resp BP Pulse Ox 97.8 F 113 20 167/91 100 06/15/18 11:16 06/15/18 11:16 06/15/18 11:16 06/15/18 11:16 06/15/18 11:16 Exam: General appearance: No acute distress Head exam: Atraumatic Eye exam: EOMI, PERRLA ENT exam: Moist oral mucosa Neck nontender, supple Respiratory exam: Decreased breath sound bilaterally with a few scattered wheezing Cardiovascular exam: Sinus tachycardia with a regular rhythm, no systolic murmur Abdominal exam: Soft, nontender, nondistended, positive bowel sounds Extremities exam: No calf tenderness, +1 pedal edema Present: Skin-no rash, warm, dry, intact Neurological exam: Alert, awake, oriented 3, CN II-XII intact, no focal deficits. No facial droop. Pressured speech. Normal gait. - Assessment and Plan (1) Acute exacerbation of chronic obstructive airways disease Current Visit: Yes Status: Acute Assessment and Plan: Patient was hospitalized and treated for COPD exacerbation at [facility] last week and transferred [place] 7 [place] ago. Continue IV steroids and IV antibiotics (Vanc, Zosyn, Levaquin) for possible H CAP-- will decrease IV steroid 40 mg IV every 12 hours. MRSA nasal swab screen ordered and if his negative cholesterol vancomycin. Will plan to D escalate antibiotic a patient continued to improve. Blood cultures and sputum culture with no growth yet respiratory infectious panel-positive for human metapneumo virus urine strep pneumo and legionella antigens -negative Continue Xopenex secondary to persistent tachycardia with albuterol nebs. Will consider traffic signal mechanic if needed. Repeat chest x-ray ordered CT/CT angio chest IMPRESSION: No evidence of pulmonary embolism. Multiple tree-in-bud and ground-glass nodules throughout the right middle lobe and right lower lobe and to a lesser degree in the right upper lobe suggesting an atypical pneumonia. Multiple likely infectious/inflammatory nodules throughout the right lung. Recommend close interval follow-up to resolution. Moderate to severe centrilobular emphysema. (2) HTN (hypertension) Current Visit: No Status: Chronic Assessment and Plan: High blood pressure. Resumed home medication lisinopril after confirming. Close monitoring. (3) Tobacco abuse Current Visit: Yes Status: Chronic Assessment and Plan: Tobacco cessation discussed. Nicotine patch ordered. (4) Acute and chronic respiratory failure with hypoxia Current Visit: Yes Status: Acute Assessment and Plan: Better. On admission Patient actively in respiratory distress distress- BiPAP in ER Patient wears 2 L oxygen continuously at baseline. CTA chest ruled out PE Continue bronchodilators. ABG Closely monitor. (5) Paranoid schizophrenia, chronic condition Current Visit: Yes Status: Acute Assessment and Plan: Talk to his psychiatrist Dr. arreola at [facility] and he advised to start risperidone 2 mg by mouth twice a day scheduled as it had control his agitation in the past. He also advised Haldol 5 mg by mouth every 6 hours for agitation and it can be changed to IV if cannot be given oral. Patient in psychiatric consultation done Patient has been on the medical unit at the [place] secondary to shortness of breath while awaiting a psych bed for suicidal ideation. Patient denies active suicidal or homicidal ideation at this time. Outpatient management. (6) Sinus tachycardia Current Visit: Yes Status: Acute Assessment and Plan: Mild intermittent sinus tachycardia. No active chest pain. Echo as mentioned below. Could be due to agitation. Restoril is started. Continue to monitor. Impressions: LVEF 60-65%. Normal left ventricular size and systolic function. There is evidence of mild diastolic dysfunction of the left ventricle. Normal right ventricular size and function. No significant valvular dysfunction. Estimated RVSP was 14 mmHg. No pulmonary hypertension. (7) DVT prophylaxis Current Visit: No Status: Acute Assessment and Plan: Heparin subcutaneous. (8) Goals of care, counseling/discussion Current Visit: Yes Status: Acute Assessment and Plan: More than 35 minute inpatient care and coordination with the patient, nursing staff, client experience consultant as mentioned. Talk to his psychiatrist at [place] - Time Spent with Patient Total time spent is greater than 50% in coordination of care (as documented) at patient's floor/unit and/or counseling patient: Greater than 35 minutes Plan of Care Discussed with: nurse Internal Medicine: Result - Labs CBC & Chem 7: 06/15/18 06:32 06/15/18 06:32 Labs: Short CBC 06/15/18 Range/Units 06:32 WBC 26.1 H (4.3-11.1) K/mcL Hgb 12.8 L (12.9-16.9) g/dL Hct 39.0 (37.5-50.1) % Plt Count 311 (140-400) K/mcL Neutrophils # 24.2 H (1.6-8.9) K/mcL BMP 06/15/18 06:32 Sodium 137 Potassium 3.9 Chloride 96 L Carbon Dioxide 29 BUN 18 Creatinine 0.63 L Glucose 158 H Calcium 9.1 - ABG Interpretation ABG results: ABG ABG pH 7.34 pH Units (7.32-7.45) 06/14/18 11:43 ABG pCO2 56 mmHg (35-45) H 06/14/18 11:43 ABG pO2 129 mmHg (85-104) H 06/14/18 11:43 ABG O2 Saturation 99 % (95-98) H 06/14/18 11:43 - Impressions Impressions Chest CTA 06/14/18 10:56 IMPRESSION: No evidence of pulmonary embolism. Multiple tree-in-bud and ground-glass nodules throughout the right middle lobe and right lower lobe and to a lesser degree in the right upper lobe suggesting an atypical pneumonia. Multiple likely infectious/inflammatory nodules throughout the right lung. Recommend close interval follow-up to resolution. Moderate to severe centrilobular emphysema. The findings were sent to the Radiology Results Communication Center at 12:00 pm on 06/14/2018to be communicated to a licensed caregiver. D/ : / 06/14/2018 12:04:47 Salvatore Marcus MD / winter Interpreting Provider: Salvatore Marcus MD Consult Discharge Plan - Plan [facility]errals: [facility]Primary Care Provider] - (2) HTN (hypertension) Qualifiers: Hypertension type: essential hypertension Qualified Code(s): I10 - Essential (primary) hypertension
[2018-06-15] MEDS: risperiDONE 1 MG TABLET PO SCH ×2 (12:16→22:07)
[2018-06-15] MEDS: Levofloxacin 750 MG/150 ML 750 MG/150 ML BAG IVPB SCH (12:17)
--- NOTE | 2018-06-15 12:51 | Consult Note ---
Date of Encounter: 06/15/18 Time of Encounter: 12:44 Assessment & Recommendation (1) Paranoid schizophrenia, chronic condition Current visit: Yes Status: Acute Assessment & Recommendation: Client unable to give much history and is not seen as a reliable historian. Thoughts were pretty disorganized today. However, he was able to deny SI/HI/AH/VH. Due not think he requires a sitter for SI at this time. Would recommend getting [facility] to see how they were managing his psychosis. Unclear what his baseline is. Client may be psychotic at his baseline. However, if this is not his norm would continue with plan to transfer him to inpatient psych once medically stable. He should probably restart whatever his regimen is through the [facility] provided nothing he is normally prescribed interacts with his medical treatment here. If the [facility] does not have recent records can start him on Risperdal 2mg daily to get him going on something. Call if any questions. History of Present Illness Requesting Physician: Zayda Zuñiga MD Reason for consult: paranoid schizophrenia History of present illness: Mr. Mullins is a 58 year old male who was on a medical unit at the [facility] awaiting an inpatient mental health bed and ended up being transferred to [place] for ongoing medical care. Client is diagnosed with paranoid Schizophrenia and is not currently on any medications. He was awaiting a mental health bed secondary to endorsing SI. On eval today client denies SI, intent, or plan. He denies HI/AH/VH as well. However, his thoughts are disorganized and he is unable to provide any reliable history. Client states he has not been treated for a mental health condition since 1994. Claims he took "mood pills" at that time and that there is nothing wrong with his mind. [facility] because he drank "white wine" and "I turned myself in." Does not know what he is being treated for medically. On eval today client was not making much sense. He was talking about not letting the aircraft structure mechanic in his house due to dog hair but then jumped to wanting to kill Obama on his lawn. Unable to answer most questions with helpful answers. CC: Zayda Zuñiga MD Past Med Surg Social Fam HX - Past Medical History Medical history: COPD, hypertension - Past Psychiatric History Psychiatric history: Reports: schizophrenia, previous psychiatric hospitalization Family psychiatric history: Unknown Family History of Suicide: Unknown - Past Surgical History Surgical History: no surgical history - Social History Smoking Status: Current every day smoker Smokeless Tobacco Status: No Alcohol use: none Drug use: marijuana - Family History Mother Living Status: Hx Family Cardiac Disorders: Yes ([place]) Hx Family Cancer: Yes (Lung) Father Living Status: Age at : 74 Cause of : CHF Hx Family Cardiac Disorders: Yes Hx Family Respiratory Disorders: Yes Hx Family Cancer: Yes Hx Family GI Disorders: Yes Hx Family Endocrine Disorder: Yes Hx Family Medical Disorders: Yes Sister Living Status: Cause of : Renal failure Medications & Allergies Albuterol Sulfate [Albuterol Inhaler] 2 puff IH TID PRN 06/14/16 [History] Aspirin [Lo-Dose Aspirin EC] 81 mg PO DAILY 06/14/16 [History] Budesonide/Formoterol 160/4.5 [Symbicort 160/4.5] 2 puff IH BIDR 06/14/16 [History] Cholecalciferol (D-3) [Vitamin D] 1,000 unit PO DAILY 06/14/16 [History] Tiotropium [Spiriva] 1 puff IH DAILY 06/14/16 [History] Acetaminophen [Tylenol] 325 mg PO TID PRN 06/15/16 [History] hydroCHLOROthiazide [Hydrochlorothiazide] 25 mg PO DAILY 06/15/16 [History] Lisinopril [Zestril] 5 mg PO DAILY 06/14/18 [History] Allergy/AdvReac Type Severity Reaction Status Date / Time No Known Allergies Allergy Verified 06/14/18 06:58 Review of Systems Constitutional: Denies: fever, chills, weakness, weight change Eyes: Denies: eye pain, vision change Ears, Nose, Throat: Denies: ear pain, throat pain, dental pain, hearing loss, congestion Cardiovascular: Reports: other Respiratory: Reports: other Gastrointestinal: Denies: abdominal pain, nausea, vomiting, diarrhea, constipation Genitourinary male: Denies: urgency, dysuria, frequency, genital lesions Musculoskeletal: Denies: joint swelling, joint pain Integumentary: Denies: rash, lesions, pruritus Neurological: Denies: headache, weakness, numbness, memory loss Endocrine: Denies: fatigue, heat or cold intolerance Hematologic/Lymphatic: Denies: easy bruising, lymphadenopathy Allergic/Immunologic: Denies: urticaria, itchy eyes Psychiatry Exam - Constitutional Vitals: Temp Pulse Resp BP Pulse Ox 97.8 F 113 16 167/91 99 06/15/18 11:16 06/15/18 11:16 06/15/18 11:21 06/15/18 11:16 06/15/18 11:21 General appearance: unkempt, disheveled - Musculoskeletal Gait: other Station: relaxed Strength & Tone: normal for patient - Psychiatric Patient Orientation: Yes Person, Yes Time, Yes Place Level of alertness: Alert Behavior: calm, cooperative Psychomotor activity: Normal Eye Contact: Maintains Eye Contact Mood Description: Irritable Affect description: congruent with mood Speech Volume: Normal Speech pattern: normal rate, normal rhythm, normal tone, fluent, spontaneous Language & Vocabulary: consistent with education Thought Process: Disorganized Thought Content: No Suicidal ideation, No Homicidal ideation, No Overt delusions Perceptual Disturbances: No Auditory hallucinations, No Visual hallucinations Attention Span Ability: Capable of Focused Attention Memory Description: Immediate Intact, Recent Impaired, Remote Intact Patient Reliability: Not Reliable Historian Fund of knowledge: Yes abstraction ability Intelligence Estimate: Average Judgment: Limited Insight: Minimal Results - Labs Labs: Laboratory Last Values WBC 26.1 K/mcL (4.3-11.1) H 06/15/18 06:32 RBC 4.12 M/mcL (4.19-5.50) L 06/15/18 06:32 Hgb 12.8 g/dL (12.9-16.9) L 06/15/18 06:32 Hct 39.0 % (37.5-50.1) 06/15/18 06:32 MCV 94.7 fL (83.0-100.0) 06/15/18 06:32 MCH 31.1 pg (28.0-33.3) 06/15/18 06:32 MCHC 32.8 g/dL (31.6-35.5) 06/15/18 06:32 RDW 13.8 % (11.5-14.5) 06/15/18 06:32 Plt Count 311 K/mcL (140-400) 06/15/18 06:32 MPV 10.0 fL (9.4-12.4) 06/15/18 06:32 Immature Gran % 2.1 % (0-4) 06/15/18 06:32 Seg Neutrophils % 92.7 % 06/15/18 06:32 2.0 % 06/15/18 06:32 3.0 % 06/15/18 06:32 0.0 % 06/15/18 06:32 0.2 % 06/15/18 06:32 24.2 K/mcL (1.6-8.9) H 06/15/18 06:32 0.5 K/mcL (0.6-4.6) L 06/15/18 06:32 0.8 K/mcL (0.0-1.3) 06/15/18 06:32 0.0 K/mcL (0.0-0.6) 06/15/18 06:32 0.1 K/mcL (0.0-0.2) 06/15/18 06:32 Normal (Normal) 06/15/18 06:32 ABG pH 7.34 pH Units (7.32-7.45) 06/14/18 11:43 ABG pCO2 56 mmHg (35-45) H 06/14/18 11:43 ABG pO2 129 mmHg (85-104) H 06/14/18 11:43 ABG HCO3 30 mEq/L (21-27) H 06/14/18 11:43 ABG Total CO2 32 mEq/L (20-26) H 06/14/18 11:43 ABG O2 Saturation 99 % (95-98) H 06/14/18 11:43 ABG Base Excess 3 mEq/L (-2 to 3) 06/14/18 11:43 O2 Delivery Device Oxy Mask 06/14/18 11:43 Inspired O2 8.0 (1-15=lpm gy03-154=%) 06/14/18 11:43 Sodium 137 mEq/L (136-145) 06/15/18 06:32 Potassium 3.9 mEq/L (3.5-5.1) 06/15/18 06:32 Chloride 96 mEq/L (98-107) L 06/15/18 06:32 Carbon Dioxide 29 mEq/L (23-29) 06/15/18 06:32 BUN 18 mg/dL (6-20) 06/15/18 06:32 0.63 mg/dL (0.70-1.30) L 06/15/18 06:32 Est GFR ( Amer) > 60 (> 60) 06/15/18 06:32 Est GFR (Non-Af Amer) > 60 (> 60) 06/15/18 06:32 29 (6-26) H 06/15/18 06:32 Glucose 158 mg/dL (70-105) H 06/15/18 06:32 289 (280-300) 06/15/18 06:32 Lactic Acid 1.8 mmol/L (0.5-2.2) 06/14/18 11:47 Calcium 9.1 mg/dL (8.6-10.3) 06/15/18 06:32 Phosphorus 3.0 mg/dL (2.7-4.5) 06/14/18 07:55 Magnesium 1.7 mg/dL (1.6-2.6) 06/14/18 07:55 0.4 mg/dL (0.3-1.0) 06/14/18 07:55 0.1 mg/dL (0.0-0.2) 06/14/18 07:55 0.3 mg/dL (0.0-1.2) 06/14/18 07:55 AST 30 Units/L (13-39) 06/14/18 07:55 ALT 120 Units/L (7-52) H 06/14/18 07:55 63 Units/L (34-104) 06/14/18 07:55 0.03 ng/mL (< 0.04) 06/14/18 07:55 6.3 g/dL (6.4-8.9) L 06/14/18 07:55 3.8 g/dL (3.5-5.7) 06/14/18 07:55 2.5 g/dL (2.4-3.5) 06/14/18 07:55 1.5 (1.1-2.2) 06/14/18 07:55 Yellow (Yellow) 06/14/18 08:45 Clear (Clear) 06/14/18 08:45 6.5 pH Units (5.0-8.0) 06/14/18 08:45 Ur Specific Stephenson 1.018 (1.010-1.025) 06/14/18 08:45 Negative mg/dL (Neg-Trace) 06/14/18 08:45 Normal mg/dL (Normal) 06/14/18 08:45 Negative mg/dL (Negative) 06/14/18 08:45 Negative (Negative) 06/14/18 08:45 Negative (Negative) 06/14/18 08:45 Negative (Negative) 06/14/18 08:45 Normal mg/dL (Normal) 06/14/18 08:45 Ur Leukocyte Esterase Negative (Negative) 06/14/18 08:45 Ur Culture Indicated? NO (NO) 06/14/18 08:45 Chlamy pneumoniae PCR Not Detected (Not Detect) 06/14/18 16:05 Not Detected (Not Detect) 06/14/18 16:05 B. pertussis DNA (PCR) Not Detected (Not Detect) 06/14/18 16:05 B.parapertussis DNA PCR Not Detected (Not Detect) 06/14/18 16:05 Coronavirus OC43 (PCR) Not Detected (Not Detect) 06/14/18 16:05 Coronavirus HKU1 (PCR) Not Detected (Not Detect) 06/14/18 16:05 Coronavirus 229E (PCR) Not Detected (Not Detect) 06/14/18 16:05 Coronavirus NL63 (PCR) Not Detected (Not Detect) 06/14/18 16:05 Human Metapneumovir PCR DETECTED (Not Detect) A 06/14/18 16:05 Influenza A (H1) PCR Not Detected (Not Detect) 06/14/18 16:05 Influ A (H1N1/09) PCR Not Detected (Not Detect) 06/14/18 16:05 Influenza A (H3) PCR Not Detected (Not Detect) 06/14/18 16:05 Influenza A Untype (PCR) Not Detected (Not Detect) 06/14/18 16:05 Influenza Type B (PCR) Not Detected (Not Detect) 06/14/18 16:05 M.pneumoniae DNA (PCR) Not Detected (Not Detect) 06/14/18 16:05 Parainfluenza 1 (PCR) Not Detected (Not Detect) 06/14/18 16:05 Parainfluenza 2 (PCR) Not Detected (Not Detect) 06/14/18 16:05 Parainfluenza 3 (PCR) Not Detected (Not Detect) 06/14/18 16:05 Parainfluenza 4 (PCR) Not Detected (Not Detect) 06/14/18 16:05 RSV (PCR) Not Detected (Not Detect) 06/14/18 16:05 Entero/Rhino (PCR) Not Detected (Not Detect) 06/14/18 16:05 - Impressions Impressions Chest CTA 06/14/18 10:56 IMPRESSION: No evidence of pulmonary embolism. Multiple tree-in-bud and ground-glass nodules throughout the right middle lobe and right lower lobe and to a lesser degree in the right upper lobe suggesting an atypical pneumonia. Multiple likely infectious/inflammatory nodules throughout the right lung. Recommend close interval follow-up to resolution. Moderate to severe centrilobular emphysema. The findings were sent to the [facility] at 12:00 pm on 06/14/2018to be communicated to a licensed caregiver. D/ / 06/14/2018 12:04:47 Salvatore Marcus MD / winter Interpreting Provider: Salvatore Marcus MD Consult Discharge Plan - Plan [facility]errals: [facility] [Primary Care Provider] -
[2018-06-16] MEDS: Ipratropium Neb 0.5 MG NEBULIZER IH SCH ×7 (00:02→23:22)
[2018-06-16] MEDS: Levalbuterol Neb 1.25 MG/3 ML IH SCH ×7 (00:02→23:22)
[2018-06-16] MEDS: Piperacillin/Tazobactam 3.375 GM in 0.9 % Sodium Chloride Mini Bag 100 ML IVPB SCH ×3 (00:10→18:36)
[2018-06-16] MEDS: *HR* Heparin 5,000 UNIT/ML VIAL SQ SCH ×2 (05:26→18:37)
[2018-06-16] MEDS: MethylPREDNISolone 40 MG/ML VIAL IVP SCH (05:26)
[2018-06-16 05:56] LABS: Basophils # 0.1 K/mcL (0.0-0.2); Basophils % 0.2 %; Hematocrit 39.9 % (37.5-50.1); Hemoglobin 12.8 g/dL (12.9-16.9); Immature Granulocytes % 1.6 % (0-4); Lymphocytes # 0.6 K/mcL (0.6-4.6); Lymphocytes % 2.6 %; Mean Corpuscular HGB Conc 32.1 g/dL (31.6-35.5); Mean Corpuscular Hemoglobin 31.1 pg (28.0-33.3); Mean Corpuscular Volume 97.1 fL (83.0-100.0); Mean Platelet Volume 10.5 fL (9.4-12.4); Monocytes % 4.7 %; Platelet Count 339 K/mcL (140-400); Red Blood Count 4.11 M/mcL (4.19-5.50); Red Cell Distribution Width 14.3 % (11.5-14.5); Segmented Neutrophils % 90.9 %
[2018-06-16 06:02] LABS: Monocytes # 1.1 K/mcL (0.0-1.3); Neutrophils # 22.1 K/mcL (1.6-8.9)
[2018-06-16 06:12] LABS: BUN/Creatinine Ratio 34 (6-26); Blood Urea Nitrogen 22 mg/dL (6-20); Calcium 9.4 mg/dL (8.6-10.3); Carbon Dioxide 32 mEq/L (23-29); Chloride 97 mEq/L (98-107); Glucose 122 mg/dL (70-105); Osmolality,Calculated 291 (280-300); Potassium 4.4 mEq/L (3.5-5.1); Sodium 138 mEq/L (136-145); eGFR For Non-African Americans > 60 (> 60)
[2018-06-16 06:37] LABS: Platelet Estimate Normal (Normal)
[2018-06-16] MEDS: Tiotropium 18 MCG inhalation IH SCH (07:23)
[2018-06-16] MEDS: risperiDONE 1 MG TABLET PO SCH ×2 (08:52→20:39)
[2018-06-16] MEDS: Cholecalciferol (D-3) 1,000 UNIT TABLET PO SCH (08:52)
[2018-06-16] MEDS: Aspirin Enteric Coated 81 MG Tablet PO SCH (08:53)
[2018-06-16] MEDS: Nicotine 21 MG PATCH.TD24 TD SCH (08:53)
[2018-06-16] MEDS: Levofloxacin 750 MG/150 ML 750 MG/150 ML BAG IVPB SCH (08:55)
[2018-06-16] MEDS ORDERED: hydroCHLOROthiazide 25 MG TABLET PO SCH (09:00)
[2018-06-16] MEDS ORDERED: predniSONE 20 MG TABLET PO SCH (09:00)
[2018-06-16] MEDS: Thiamine (B-1) 100 MG TABLET PO SCH (09:25)
--- NOTE | 2018-06-16 09:52 | Internal Med Progress Note ---
Hospitalist Progress Note - Encounter Date of Encounter: 06/16/18 Time of Encounter: 09:49 - Subjective Interval History: Patient had worsening of shortness of breath and required higher oxygen supplementation and BiPAP intermittently. Review the lab Denies fever chills nausea vomiting headache chest pain abdominal pain diarrhea - Exam Vitals: Temp Pulse Resp BP Pulse Ox 98.4 F 118 20 157/105 99 06/16/18 07:28 06/16/18 07:28 06/16/18 07:28 06/16/18 07:28 06/16/18 07:28 Exam: General appearance: Moderate respiratory distress. On BiPAP Head exam: Atraumatic Eye exam: EOMI, PERRLA ENT exam: Moist oral mucosa Neck nontender, supple Respiratory exam: Decreased breath sound bilaterally more on left side with wheezing Cardiovascular exam: Sinus tachycardia with a regular rhythm, no systolic murmur Abdominal exam: Soft, nontender, nondistended, positive bowel sounds Extremities exam: No calf tenderness, +1 pedal edema Present: Skin-no rash, warm, dry, intact Neurological exam: Alert, awake, oriented 3, CN II-XII intact, no focal deficits. No facial droop. Pressured speech. Normal gait. - Assessment and Plan (1) Acute and chronic respiratory failure with hypoxia Current Visit: Yes Status: Acute Assessment and Plan: Worse. Consulted pulp and paper tester and ABG ordered On admission Patient actively in respiratory distress distress- BiPAP in ER Patient wears 2 L oxygen continuously at baseline. CTA chest ruled out PE Continue bronchodilators. ABG Closely monitor. (2) Acute exacerbation of chronic obstructive airways disease Current Visit: Yes Status: Acute Assessment and Plan: Patient was hospitalized and treated for COPD exacerbation at [facility] last week and transferred to the [place] 7 days ago. Continue IV steroids and IV antibiotics (Vanc, Zosyn, Levaquin) for possible HCAP-- MRSA nasal swab screen negative therefore vancomycin is stopped. Blood cultures and sputum culture with no growth yet respiratory infectious panel-positive for human metapneumo virus urine strep pneumo and legionella antigens -negative Continue Xopenex secondary to persistent tachycardia with albuterol nebs. Worsening of symptoms after starting oral prednisone. Requiring BiPAP intermittently because of tachycardia tachypnea and accessory muscles use-feels better. Patient used 2 L home oxygen. Consulted pulp and paper tester-May restart IV Solu-Medrol if pulp and paper tester advice CT/CT angio chest IMPRESSION: No evidence of pulmonary embolism. Multiple tree-in-bud and ground-glass nodules throughout the right middle lobe and right lower lobe and to a lesser degree in the right upper lobe suggesting an atypical pneumonia. Multiple likely infectious/inflammatory nodules throughout the right lung. Recommend close interval follow-up to resolution. Moderate to severe centrilobular emphysema. (3) Pneumonia Current Visit: Yes Status: Acute Assessment and Plan: Atypical pneumonia bilateral based on CT scan. Possible hospital acquired pneumonia as well due to recent hospitalization. Worsening symptoms therefore consulted pulp and paper tester As mentioned above. (4) HTN (hypertension) Current Visit: No Status: Chronic Assessment and Plan: High blood pressure with sinus tachycardia. Beta josephine metoprolol 12.5 mg twice a day started and will titrate accordingly. Will hold HCTZ for now .continue lisinopril . Close monitoring. (5) Paranoid schizophrenia, chronic condition Current Visit: Yes Status: Acute Assessment and Plan: Talk to his psychiatrist Dr. arreola at [facility] and he advised to start risperidone 2 mg by mouth twice a day scheduled as it had control his agitation in the past. He also advised Haldol 5 mg by mouth every 6 hours for agitation when necessary and it can be changed to IV if cannot be given oral. inpt psychiatric consultation also done -reviewed the note -does not think patient requested to therefore will discontinue but advised to consider i npatient psych admission once medically cleared. Appreciate their input . Patient has been on the medical unit at the [place] secondary to shortness of breath while awaiting a psych bed for suicidal ideation. Patient denies active suicidal or homicidal ideation at this time. (6) Sinus tachycardia Current Visit: Yes Status: Acute Assessment and Plan: sinus tachycardia. No active chest pain. Echo as mentioned below. Beta josephine started. Could be due to agitation as well. Restoril is started. Co ntinue to monitor. Impressions: LVEF 60-65%. Normal left ventricular size and systolic function. There is evidence of mild diastolic dysfunction of the left ventricle. Normal right ventricular size and function. No significant valvular dysfunction. Estimated RVSP was 14 mmHg. No pulmonary hypertension. (7) DVT prophylaxis Current Visit: No Status: Acute Assessment and Plan: Heparin subcutaneous. (8) Goals of care, counseling/discussion Current Visit: Yes Status: Acute Assessment and Plan: As mentioned above. Will consider inpatient psych admission once medically cleared. Psychiatrist following the patient-appreciate their recommendation. Spent more than 35 minute inpatient care and communication with nursing staff and consultants as mentioned (9) Tobacco abuse Current Visit: Yes Status: Chronic Assessment and Plan: Tobacco cessation discussed. Nicotine patch ordered. - Time Spent with Patient Total time spent is greater than 50% in coordination of care (as documented) at patient's floor/unit and/or counseling patient: Greater than 35 minutes Plan of Care Discussed with: patient Internal Medicine: Result - Labs CBC & Chem 7: 06/16/18 05:18 06/16/18 05:18 Labs: Short CBC 06/16/18 Range/Units 05:18 WBC 24.3 H (4.3-11.1) K/mcL Hgb 12.8 L (12.9-16.9) g/dL Hct 39.9 (37.5-50.1) % Plt Count 339 (140-400) K/mcL Neutrophils # 22.1 H (1.6-8.9) K/mcL BMP 06/16/18 05:18 Sodium 138 Potassium 4.4 Chloride 97 L Carbon Dioxide 32 H BUN 22 H Creatinine 0.65 L Glucose 122 H Calcium 9.4 - ABG Interpretation ABG results: ABG ABG pH 7.34 pH Units (7.32-7.45) 06/14/18 11:43 ABG pCO2 56 mmHg (35-45) H 06/14/18 11:43 ABG pO2 129 mmHg (85-104) H 06/14/18 11:43 ABG O2 Saturation 99 % (95-98) H 06/14/18 11:43 - Impressions Impressions Chest X-Ray 06/15/18 11:56 IMPRESSION: COPD with right lung infiltrate/pneumonia seen to better advantage on CT from one day earlier. D/ / 06/15/2018 13:31:40 Luis Guerrero MD / bcarter Interpreting Provider: Luis Guerrero MD Consult Discharge Plan - Plan [facility]errals: [facility] [Primary Care Provider] - (3) Pneumonia Qualifiers: Aspiration pneumonia type: unspecified Laterality: bilateral Lung location: unspecified part of lung (4) HTN (hypertension) Qualifiers: Hypertension type: essential hypertension Qualified Code(s): I10 - Essential (primary) hypertension
[2018-06-16 10:38] LABS: ABG Base Excess 8 mEq/L (-2 to 3); ABG HCO3 36 mEq/L (21-27); ABG Oxygen Saturation 97 % (95-98); ABG PCO2 61 mmHg (35-45); ABG PH 7.37 pH Units (7.32-7.45); ABG PO2 92 mmHg (85-104); ABG TCO2 38 mEq/L (20-26); Blood Gas PEEP 8 cm H2O; Blood Gas Pressure Support 12 cm H2O
--- NOTE | 2018-06-16 14:21 | Pulmonology Consult Note ---
Date of Encounter: 06/16/18 Time of Encounter: 14:20 Assessment and Plan (1) Acute exacerbation of chronic obstructive airways disease Current Visit: Yes Status: Acute Patient with significant history of smoking tobacco and he stated that he would not smoke after this illness. He is having Nicotine patch at this time. Patient oxygen saturation without oxygen in the home he was 89-90%. Clearly has evidence of respiratory distress and COPD exacerbation secondary to possibly viral infection and de-escalation of antibiotic is recommended. I will start him on Symbicort and increase his systemic steroid since he still symptomatic. I have explained to him this might take at least 2-3 weeks for him to recover. This was all explained to the patient in the presence of the nurse. Thank you for consultation and please call for any questions. Patient can follow up as outpatient after he is discharged from the hospital or follow up with [facility] pulmo nary department. 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 He was diagnosed with AECOPD and he stated he has been having productive yellow sputum with edema and worsening of his wheezing, but denies any hemoptysis and he was treated for HCAP and AECOPD. Patient has LTOT and he said he is feeling slightly better now with the treatment. Patient was found to have viral disease in the respiratory panel. Past Med Surg Social Fam HX - Past Medical History Medical history: COPD, hypertension Psychiatric history: schizophrenia, previous psychiatric hospitalization - Past Surgical History Surgical History: no surgical history - Social History Smoking Status: Current every day smoker Smokeless Tobacco Status: No Alcohol use: none Drug use: marijuana - Family History Mother Living Status: Hx Family Cardiac Disorders: Yes ([place]) Hx Family Cancer: Yes (Lung) Father Living Status: Age at : 74 Cause of : CHF Hx Family Cardiac Disorders: Yes Hx Family Respiratory Disorders: Yes Hx Family Cancer: Yes Hx Family GI Disorders: Yes Hx Family Endocrine Disorder: Yes Hx Family Medical Disorders: Yes Sister Living Status: Cause of : Renal failure Medications and Allergies Albuterol Sulfate [Albuterol Inhaler] 2 puff IH TID PRN 06/14/16 [History] Aspirin [Lo-Dose Aspirin EC] 81 mg PO DAILY 06/14/16 [History] Budesonide/Formoterol 160/4.5 [Symbicort 160/4.5] 2 puff IH BIDR 06/14/16 [History] Cholecalciferol (D-3) [Vitamin D] 1,000 unit PO DAILY 06/14/16 [History] Tiotropium [Spiriva] 1 puff IH DAILY 06/14/16 [History] Acetaminophen [Tylenol] 325 mg PO TID PRN 06/15/16 [History] hydroCHLOROthiazide [Hydrochlorothiazide] 25 mg PO DAILY 06/15/16 [History] Lisinopril [Zestril] 5 mg PO DAILY 06/14/18 [History] Allergy/AdvReac Type Severity Reaction Status Date / Time No Known Allergies Allergy Verified 06/14/18 06:58 All Systems: The remainder of the systems were reviewed and are negative Physical Examination Vital Signs: Vital Signs, Last 4 Hours Pulse Resp BP Pulse Ox 06/16/18 11:14 145 24 169/105 96 General appearance: appears uncomfortable Eyes: nonicteric ENT: oropharynx dry Mallampati (class): 3 Neck: supple Effort: mildly labored Auscultation: bilateral: wheezes Percussion: bilateral: not dull Cardiovascular: regular rate and rhythm Gastrointestinal: normoactive bowel sounds, non-distended Integumentary: normal Extremities: no cyanosis, edema normal mental status, non-focal exam anxious Results - Laboratory Findings CBC and BMP: 06/19/18 05:35 06/19/18 05:35 ABG ABG pH 7.37 pH Units (7.32-7.45) 06/16/18 10:35 ABG pCO2 61 mmHg (35-45) H 06/16/18 10:35 ABG pO2 92 mmHg (85-104) 06/16/18 10:35 ABG O2 Saturation 97 % (95-98) 06/16/18 10:35 Abnormal lab findings: Abnormal lab results WBC 24.3 K/mcL (4.3-11.1) H 06/16/18 05:18 RBC 4.11 M/mcL (4.19-5.50) L 06/16/18 05:18 Hgb 12.8 g/dL (12.9-16.9) L 06/16/18 05:18 22.1 K/mcL (1.6-8.9) H 06/16/18 05:18 0.5 K/mcL (0.6-4.6) L 06/15/18 06:32 ABG pCO2 61 mmHg (35-45) H 06/16/18 10:35 ABG pO2 129 mmHg (85-104) H 06/14/18 11:43 ABG HCO3 36 mEq/L (21-27) H 06/16/18 10:35 ABG Total CO2 38 mEq/L (20-26) H 06/16/18 10:35 ABG O2 Saturation 99 % (95-98) H 06/14/18 11:43 ABG Base Excess 8 mEq/L (-2 to 3) H 06/16/18 10:35 Sodium 135 mEq/L (136-145) L 06/14/18 07:55 Chloride 97 mEq/L (98-107) L 06/16/18 05:18 Carbon Dioxide 32 mEq/L (23-29) H 06/16/18 05:18 BUN 22 mg/dL (6-20) H 06/16/18 05:18 0.65 mg/dL (0.70-1.30) L 06/16/18 05:18 34 (6-26) H 06/16/18 05:18 Glucose 122 mg/dL (70-105) H 06/16/18 05:18 ALT 120 Units/L (7-52) H 06/14/18 07:55 6.3 g/dL (6.4-8.9) L 06/14/18 07:55 Human Metapneumovir PCR DETECTED (Not Detect) A 06/14/18 16:05 - Microbiology Findings Microbiology Findings: Microbiology, Last 48 Hours 06/15/18 01:19 Sputum Culture - Preliminary Sputum 06/14/18 08:45 Legionella Antigen - Final Urine,Clean Catch Streptococcus pneumoniae Antigen (M - Final - Diagnostic Findings Chest x-ray: report reviewed, image reviewed - Clinical Findings Intake & Output: Intake & Output 06/15/18 06/16/18 06/16/18 23:59 07:59 15:59 Intake Total 580 / 1540 100 / 880 780 / 880 Balance 580 / 290 100 / 880 780 / 880 Consult Discharge Plan - Plan [facility]errals: [facility] [Primary Care Provider] -
[2018-06-16] MEDS ORDERED: MethylPREDNISolone 40 MG/ML VIAL IVP SCH (16:00)
[2018-06-16] MEDS: Budesonide/Formoterol 160/4.5 1 PUFF INH IH SCH (19:32)
[2018-06-16] MEDS: methylPREDNISolone 125 MG/2 ML VIAL IVP SCH (20:00)
[2018-06-16] MEDS: Acetaminophen 325 MG TABLET PO PRN (20:39)
[2018-06-17] MEDS: Piperacillin/Tazobactam 3.375 GM in 0.9 % Sodium Chloride Mini Bag 100 ML IVPB SCH ×3 (00:36→17:34)
[2018-06-17] MEDS ORDERED: Piperacillin/Tazobactam 3.375 GM in 0.9 % Sodium Chloride Mini Bag 100 ML IVPB SCH (01:00)
[2018-06-17] MEDS: methylPREDNISolone 125 MG/2 ML VIAL IVP SCH ×3 (01:20→17:34)
[2018-06-17] MEDS: Ipratropium Neb 0.5 MG NEBULIZER IH SCH ×7 (04:07→23:52)
[2018-06-17] MEDS: Levalbuterol Neb 1.25 MG/3 ML IH SCH ×7 (04:07→23:52)
[2018-06-17] MEDS ORDERED: 0.9 % Sodium Chloride 500 ML ONE (04:47)
[2018-06-17] MEDS: *HR* Heparin 5,000 UNIT/ML VIAL SQ SCH (06:10)
[2018-06-17] MEDS: Acetaminophen 325 MG TABLET PO PRN ×2 (06:15→21:02)
[2018-06-17] MEDS: Budesonide/Formoterol 160/4.5 1 PUFF INH IH SCH ×2 (07:16→19:44)
[2018-06-17] MEDS: Tiotropium 18 MCG inhalation IH SCH (07:20)
[2018-06-17] MEDS: Aspirin Enteric Coated 81 MG Tablet PO SCH (08:48)
[2018-06-17] MEDS: Cholecalciferol (D-3) 1,000 UNIT TABLET PO SCH (08:48)
[2018-06-17] MEDS: Thiamine (B-1) 100 MG TABLET PO SCH (08:48)
[2018-06-17] MEDS: Nicotine 21 MG PATCH.TD24 TD SCH (08:50)
[2018-06-17] MEDS: risperiDONE 1 MG TABLET PO SCH ×2 (08:52→21:02)
[2018-06-17 09:16] LABS: Basophils # 0.1 K/mcL (0.0-0.2); Basophils % 0.3 %; Eosinophils % 0.1 %; Hematocrit 43.1 % (37.5-50.1); Hemoglobin 13.7 g/dL (12.9-16.9); Immature Granulocytes % 1.8 % (0-4); Lymphocytes # 0.5 K/mcL (0.6-4.6); Lymphocytes % 2.3 %; Mean Corpuscular HGB Conc 31.8 g/dL (31.6-35.5); Mean Corpuscular Hemoglobin 30.7 pg (28.0-33.3); Mean Corpuscular Volume 96.6 fL (83.0-100.0); Monocytes # 0.6 K/mcL (0.0-1.3); Monocytes % 2.8 %; Neutrophils # 20.7 K/mcL (1.6-8.9); Platelet Count 312 K/mcL (140-400); Red Blood Count 4.46 M/mcL (4.19-5.50); Red Cell Distribution Width 14.5 % (11.5-14.5); Segmented Neutrophils % 92.7 %
[2018-06-17] MEDS ORDERED: *HR* Heparin 5,000 UNIT/ML VIAL IVP ONE (09:18)
[2018-06-17] MEDS ORDERED: *HR* Heparin 5,000 UNIT/ML VIAL IVP PRN ×2 (09:18)
[2018-06-17 09:34] LABS: BUN/Creatinine Ratio 40 (6-26); Blood Urea Nitrogen 21 mg/dL (6-20); Calcium 9.1 mg/dL (8.6-10.3); Carbon Dioxide 29 mEq/L (23-29); Chloride 97 mEq/L (98-107); Glucose 137 mg/dL (70-105); Osmolality,Calculated 289 (280-300); Potassium 4.9 mEq/L (3.5-5.1); Sodium 137 mEq/L (136-145); eGFR For Non-African Americans > 60 (> 60)
--- NOTE | 2018-06-17 10:07 | Internal Med Progress Note ---
Hospitalist Progress Note - Encounter Date of Encounter: 06/17/18 Time of Encounter: 10:00 - Subjective Interval History: Notice A. fib with RVR heart rate in 160s -170s. Cardizem drip was started. Still requiring BiPAP intermittently-patient does not like to be on BiPAP. Still has shortness of breath .Heart rate get slight better after starting BiPAP . Review of the lab trending down white count is still high. Denies fever chills vomiting headache abdominal pain, diarrhea or urinary complaint. - Exam Vitals: Temp Pulse Resp BP Pulse Ox 97.6 F 144 16 156/92 95 06/17/18 07:38 06/17/18 07:38 06/17/18 07:38 06/17/18 07:38 06/17/18 07:38 Exam: General appearance: No acute distress. On BiPAP Eye exam: EOMI, PERRLA ENT exam: Moist oral mucosa Neck nontender, supple Respiratory exam: Decreased breath sound bilaterally more on left side with whee zing Cardiovascular exam: A. fib with RVR no systolic murmur Abdominal exam: Soft, nontender, nondistended, positive bowel sounds Extremities exam: No calf tenderness, +1 pedal edema Present: Skin-no rash, warm, dry, intact Neurological exam: Alert, awake, oriented 3, CN II-XII intact, no focal deficits. No facial droop. Pressured speech. - Assessment and Plan (1) Atrial fibrillation with RVR Current Visit: Yes Status: Acute Assessment and Plan: Onset A. fib with RVR. Cardizem drip titrate. Will consider adding beta josephine as well if not control. Started heparin drip. Consulted cardiology. TSH ordered. Most likely due to underlying respiratory illness as present chief medical complaint Echocardiogram Impressions: LVEF 60-65%. Normal left ventricular size and systolic function. There is evidence of mild diastolic dysfunction of the left ventricle. Normal right ventricular size and function. No significant valvular dysfunction. Estimated RVSP was 14 mmHg. No pulmonary hypertension. Left Ventricular Wall Motion: Rest Echo Findings All wall segments showed normal motion. (2) Acute and chronic respiratory failure with hypoxia Current Visit: Yes Status: Acute Assessment and Plan: Worse. Consulted insole cementer and ABG ordered-pulmonologists started high-dose systemic a steroid 80 mg IV 3 times a day. High PCO2 therefore BiPAP continue. Also advised to de-escalate antibiotic. Started Symbicort-may take at least to 3 weeks for him to recover On admission Patient actively in respiratory distress distress- BiPAP in ER Patient wears 2 L oxygen continuously at baseline. CTA chest ruled out PE Continue bronchodilators. Closely monitor. (3) Acute exacerbation of chronic obstructive airways disease Current Visit: Yes Status: Acute Assessment and Plan: Patient was hospitalized and treated for COPD exacerbation at [facility] last week and transferred to the [place] 7 days ago. Continue IV steroids and IV antibiotics (Vanc, Zosyn, Levaquin) for possible HCAP-- MRSA nasal swab screen negative therefore vancomycin is stopped. Blood cultures and sputum culture with no growth yet respiratory infectious panel-positive for human metapneumo virus urine strep pneumo and legionella antigens -negative Continue Xopenex secondary to persistent tachycardia with albuterol nebs. Smoking cessation education given. Nicotine patch. CT/CT angio chest IMPRESSION: No evidence of pulmonary embolism. Multiple tree-in-bud and ground-glass nodules throughout the right middle lobe and right lower lobe and to a lesser degree in the right upper lobe suggesting an atypical pneumonia. Multiple likely infectious/inflammatory nodules throughout the right lung. Recommend close interval follow-up to resolution. Moderate to severe centrilobular emphysema. (4) Pneumonia Current Visit: Yes Status: Acute Assessment and Plan: Viral pneumonia Atypical pneumonia bilateral based on CT scan. Possible hospital acquired pneumonia as well due to recent hospitalization. Worsening symptoms therefore consulted insole cementer As mentioned above. As per insole cementer note - advised to de-escalate antibiotic. Started Symbicort-may take at least to 3 weeks for him to recover (5) HTN (hypertension) Current Visit: No Status: Chronic Assessment and Plan: Normal blood pressure. Continue beta josephine and lisinopril. Will hold HCTZ for now . Close monitoring. (6) Paranoid schizophrenia, chronic condition Current Visit: Yes Status: Acute Assessment and Plan: Talk to his psychiatrist Dr. arreola at [facility] and he advised to start risperidone 2 mg by mouth twice a day scheduled as it had control his agitation in the past. He also advised Haldol 5 mg by mouth every 6 hours for agitation when necessary and it can be changed to IV if cannot be given oral. inpt psychiatric consultation also done -reviewed the note - advised to consider inpatient psych admission once medically cleared. Appreciate their input . Patient has been on the medical unit at the [facility] secondary to shortness of breath while awaiting a psych bed for suicidal ideation. Patient denies active suicidal or homicidal ideation at this time. (7) Sinus tachycardia Current Visit: Yes Status: Acute Assessment and Plan: Patient is in A. fib Impressions: LVEF 60-65%. Normal left ventricular size and systolic function. There is evidence of mild diastolic dysfunction of the left ventricle. Normal right ventricular size and function. No significant valvular dysfunction. Estimated RVSP was 14 mmHg. No pulmonary hypertension. (8) DVT prophylaxis Current Visit: No Status: Acute Assessment and Plan: Heparin subcutaneous. (9) Goals of care, counseling/discussion Current Visit: Yes Status: Acute Assessment and Plan: Will consider inpatient psych admission once medically cleared. Psychiatrist following the patient-appreciate their recommendation. Spent more than 35 minute inpatient care and communication with patient, nursing staff and consultants as mentioned (10) Tobacco abuse Current Visit: Yes Status: Chronic Assessment and Plan: Tobacco cessation discussed. Nicotine patch ordered. - Time Spent with Patient Total time spent is greater than 50% in coordination of care (as documented) at patient's floor/unit and/or counseling patient: Greater than 35 minutes Plan of Care Discussed with: nurse Internal Medicine: Result - Labs CBC & Chem 7: 06/17/18 09:55 06/17/18 07:53 Labs: Short CBC 06/17/18 Range/Units 08:58 WBC 22.3 H (4.3-11.1) K/mcL Hgb 13.7 (12.9-16.9) g/dL Hct 43.1 (37.5-50.1) % Plt Count 312 (140-400) K/mcL Neutrophils # 20.7 H (1.6-8.9) K/mcL BMP 06/17/18 07:53 Sodium 137 Potassium 4.9 Chloride 97 L Carbon Dioxide 29 BUN 21 H Creatinine 0.53 L Glucose 137 H Calcium 9.1 - ABG Interpretation ABG results: ABG ABG pH 7.37 pH Units (7.32-7.45) 06/16/18 10:35 ABG pCO2 61 mmHg (35-45) H 06/16/18 10:35 ABG pO2 92 mmHg (85-104) 06/16/18 10:35 ABG O2 Saturation 97 % (95-98) 06/16/18 10:35 Consult Discharge Plan - Plan [facility]errals: [facility] [Primary Care Provider] - (4) Pneumonia Qualifiers: Aspiration pneumonia type: unspecified Laterality: bilateral Lung location: unspecified part of lung (5) HTN (hypertension) Qualifiers: Hypertension type: essential hypertension Qualified Code(s): I10 - Essential (primary) hypertension
[2018-06-17 10:34] LABS: Prothrombin Time 10.7 Seconds (9.4-12.1)
[2018-06-17 10:35] LABS: Heparin anti-factor XA UFH 0.06 IU/mL (0.30-0.70)
[2018-06-17 10:38] LABS: Hematocrit 41.2 % (37.5-50.1); Hemoglobin 13.4 g/dL (12.9-16.9); Mean Corpuscular HGB Conc 32.5 g/dL (31.6-35.5); Mean Corpuscular Hemoglobin 31.5 pg (28.0-33.3); Mean Corpuscular Volume 96.7 fL (83.0-100.0); Mean Platelet Volume 10.2 fL (9.4-12.4); Platelet Count 312 K/mcL (140-400); Red Blood Count 4.26 M/mcL (4.19-5.50); Red Cell Distribution Width 14.5 % (11.5-14.5)
--- NOTE | 2018-06-17 10:56 | Cardiology Consult Note ---
Date of Encounter: 06/17/18 Time of Encounter: 10:53 Assessment and Plan (1) Atrial fibrillation with RVR Current Visit: Yes Status: Acute Per cardiology: -New onset a.fib RVR in the setting of COPD exacerbation, Pneumonia. -Denies palpitations, fluttering. -ON lopressor 12.5mg BID and cardizem drip. -[id number] score 1 (HTN). On asa. -Continue cardizem drip, ok to go to 20mg if needed. Continue BB. -Recommend TTE when HR controlled. -Will continue to monitor. (2) Peripheral edema Current Visit: Yes Status: Acute Per cardiology: -Lower extremity edema noted, states ongoing for about one week. -Sitting in chair, legs dependent. -No CHF noted on chest xray and CT. -Recommend ANA hose and leg elevation. Discussion w patient/family: The assessment and plan as outlined above was discussed with the patient who expressed understanding and agreement. All questions were answered. Thank you for involving us in the care of your patient. Please call with any questions. Discussed and reviewed with History of Present Illness Consult date: 06/17/18 Requesting physician: Meghan Freitas Consult reason: a.fib RVR Chief complaint: shortness of breath History of present illness: Mr. Mullins is a 58 year old male with a relevant past medical history of HTN, COPD, pulysubstance abuse, schizoprenia, who presented to [facility] with complaints of shortness of breath. Patient is being treated for COPD exacerbation and pneumonia. Cardiology has been consulted for a.fib RVR. Patient denies palpitations/fluttering. Denies chest pain. Reports shortness of breath is improving. Reports lower extremity edema that has been ongoing for about a week. Past Med Surg Social Fam HX - Past Medical History Attestation: Yes The following information was validated with the patient. Source: patient, old records reviewed Medical history: COPD, hypertension Psychiatric history: schizophrenia, previous psychiatric hospitalization - Past Surgical History Surgical History: no surgical history - Social History Smoking Status: Current every day smoker Smokeless Tobacco Status: No Alcohol use: none Drug use: marijuana - Family History Mother Living Status: Hx Family Cardiac Disorders: Yes (NE) Hx Family Cancer: Yes (Lung) Father Living Status: Age at : 74 Cause of : CHF Hx Family Cardiac Disorders: Yes Hx Family Respiratory Disorders: Yes Hx Family Cancer: Yes Hx Family GI Disorders: Yes Hx Family Endocrine Disorder: Yes Hx Family Medical Disorders: Yes Sister Living Status: Cause of : Renal failure Medications and Allergies Albuterol Sulfate [Albuterol Inhaler] 2 puff IH TID PRN 06/14/16 [History] Aspirin [Lo-Dose Aspirin EC] 81 mg PO DAILY 06/14/16 [History] Budesonide/Formoterol 160/4.5 [Symbicort 160/4.5] 2 puff IH BIDR 06/14/16 [History] Cholecalciferol (D-3) [Vitamin D] 1,000 unit PO DAILY 06/14/16 [History] Tiotropium [Spiriva] 1 puff IH DAILY 06/14/16 [History] Acetaminophen [Tylenol] 325 mg PO TID PRN 06/15/16 [History] hydroCHLOROthiazide [Hydrochlorothiazide] 25 mg PO DAILY 06/15/16 [History] Lisinopril [Zestril] 5 mg PO DAILY 06/14/18 [History] Allergy/AdvReac Type Severity Reaction Status Date / Time No Known Allergies Allergy Verified 06/14/18 06:58 All Systems Review: The remainder of the systems were reviewed and are negative - Cardiovascular Cardiovascular: as per HPI, dyspnea at rest, dyspnea on exertion, leg edema Physical Examination Vital Signs, Last 4 Hours Temp Pulse Resp BP Pulse Ox 06/17/18 10:20 110 20 103/68 06/17/18 09:09 150 30 115/85 96 06/17/18 07:38 97.6 F 144 16 156/92 95 06/17/18 07:16 18 95 General: Conversant, Other (Conversational dyspnea noted. ) HEENT: Atraumatic, Normocephaly, Mucus Membranes Moist Neck: No JVD, Normal carotid pulses Cardiac: Normal S1 and S2, No Murmur, Other (Irregularly irregular, tachycardic. ) Lungs: Other (Lung sounds diminished with expiratory wheeze noted. ) Neuro: Alert and responsive, No focal deficits noted Abdomen: Soft, Non-Tender Skin: No rashes noted on visualized skin Musculoskeletal: No Chest Wall Tenderness Extremities: No Clubbing, No Cyanosis, Normal Pulses, Other (2+ bilateral lower extremity pitting edema noted. ) Results 06/17/18 09:55 06/17/18 07:53 Lab Results Active Medications Acetaminophen (Tylenol) 650 mg PO Q6HR PRN PRN Reason: Mild Pain/Fever Stop: 12/14/18 10:08 Last Admin: 06/17/18 06:15 Dose: 650 mg Documented by: Aspirin (Aspirin Ec) 81 mg PO DAILY [facility] Stop: 12/16/18 09:01 Last Admin: 06/17/18 08:48 Dose: 81 mg Documented by: Budesonide/Formoterol Fumarate (Symbicort) 2 puff IH BIDR [facility]; Protocol Stop: 12/16/18 22:01 Last Admin: 06/17/18 07:16 Dose: 2 puff Documented by: Docusate Sodium (Colace) 100 mg PO BID PRN PRN Reason: Constipation Stop: 12/14/18 21:01 Haloperidol (Haldol) 5 mg PO Q8H PRN PRN Reason: Agitation Stop: 12/15/18 11:47 Heparin Sodium (Porcine) (Heparin) 5,500 unit 70 unit/kg (5500 unit) IVP Q6HR PRN PRN Reason: SEE COMMENTS Stop: 12/17/18 09:19 Heparin Sodium (Porcine) (Heparin) 2,700 unit 35 unit/kg (2700 unit) IVP Q6H PRN PRN Reason: SEE COMMENTS Stop: 12/17/18 09:19 Hydralazine HCl (Hydralazine) 5 mg IVP Q6HR PRN PRN Reason: systolic >160 Stop: 12/17/18 01:02 Last Admin: 06/17/18 01:20 Dose: 5 mg Documented by: Piperacillin Sod/Tazobactam (Sod 3.375 gm/ Sodium Chloride) 100 mls @ 25 mls/hr IVPB Q8H NADIA Stop: 12/17/18 08:01 Last Admin: 06/17/18 09:06 Dose: 25 mls/hr Documented by: Diltiazem HCl 50 mg/ Sodium (Chloride) 50 mls @ 0 mls/hr IVC CONT [facility]; Protocol Stop: 12/17/18 04:16 Last Admin: 06/17/18 09:50 Dose: 17.5 mls/hr Documented by: Heparin Sodium/Dextrose (Heparin 25,000 Unit/250 Ml D5w) 25,000 unit in 250 mls @ 10.906 mls/hr IVC .[id number] [facility]; Protocol Stop: 12/17/18 09:31 Levofloxacin/Dextrose (Levaquin Premix 750mg/150 Ml) 750 mg in 150 mls @ 100 mls/hr IVPB DAILY@1300 [facility]; Protocol Stop: 12/14/18 11:01 Ipratropium [place] (Atrovent Neb) 0.5 mg IH [id number] [facility] Stop: 12/14/18 16:01 Last Admin: 06/17/18 07:16 Dose: 0.5 mg Documented by: Levalbuterol HCl (Xopenex) 1.25 mg IH [id number] [facility] Stop: 12/14/18 12:01 Last Admin: 06/17/18 07:16 Dose: 1.25 mg Documented by: Lisinopril (Zestril) 5 mg PO DAILY [facility]; Protocol Stop: 12/15/18 09:46 Last Admin: 06/16/18 08:53 Dose: 5 mg Documented by: Methylprednisolone (Solu-Medrol) 80 mg IVP Q8HR [facility] Stop: 12/16/18 17:31 Last Admin: 06/17/18 08:53 Dose: 80 mg Documented by: Metoprolol Tartrate (Lopressor) 12.5 mg PO BID [facility] Stop: 12/16/18 09:01 Last Admin: 06/17/18 08:51 Dose: 12.5 mg Documented by: Naloxone HCl (Narcan) 0.4 mg IVP Q2MPRN PRN PRN Reason: SEE COMMENTS Stop: 12/14/18 10:13 Nicotine (Nicoderm) 21 mg TD DAILY [facility] Stop: 12/15/18 09:01 Last Admin: 06/17/18 08:50 Dose: 21 mg Documented by: Ondansetron HCl (Zofran) 4 mg IVP Q6HR PRN PRN Reason: Nausea And Vomiting Stop: 12/14/18 10:08 Risperidone (Risperdal) 2 mg PO BID [facility] Stop: 12/15/18 11:46 Last Admin: 06/17/18 08:52 Dose: 2 mg Documented by: Thiamine HCl (Vitamin B-1) 100 mg PO DAILY [facility] Stop: 12/14/18 14:31 Last Admin: 06/17/18 08:48 Dose: 100 mg Documented by: Throat Lozenges (Cepacol Sore Throat Lozenge) 1 each MM Q2H PRN PRN Reason: Sore Throat/Dry mouth Stop: 12/16/18 00:18 Last Admin: 06/17/18 06:21 Dose: 1 each Documented by: Tiotropium [place] (Spiriva) 18 mcg IH DAILY@0700 [facility] Stop: 12/15/18 07:01 Last Admin: 06/17/18 07:20 Dose: Not Given Documented by: Vitamin D (Vitamin D) 1,000 unit PO DAILY [facility] Stop: 12/16/18 09:01 Last Admin: 06/17/18 08:48 Dose: 1,000 unit Documented by: Laboratory Tests 06/14/18 06/17/18 06/17/18 07:55 07:53 08:58 WBC 22.3 H Hgb 13.7 Potassium 4.9 Creatinine 0.53 L Magnesium 1.7 - Imaging and Cardiology Chest Xray: report reviewed Echo: pending - EKG Interpretation EKG results cardiology: personally reviewed (ECG with a.fib RVR, HR 142.), other (Telemetry reviewed with average HR previous 12 hours noted to be 134. a.fib RVR.) Consult Discharge Plan - Plan [facility]errals: [facility] [Primary Care Provider] -
--- NOTE | 2018-06-17 11:45 | Electrocardiograph Report ---
[address] [address] Test Date: 2018-06-17 Pat Name: Pratik Mullins Department: 111 Room: 2N7 Gender: M Director Of Guidance: : 1960 Requested By: Cristina Ness Order Number: [id number] Reading MD: Dio Agarwal Measurements Intervals [place] Rate: 142 P: [place]: 0 QRS: 68 QRSD: 82 T: 28 QT: 249 QTc: 331 Interpretive Statements ATRIAL FIBRILLATION WITH RAPID VENTRICULAR RESPONSE ABNORMAL RHYTHM ECG Electronically Signed On 06-17-2018 11:43:48 EDT by Dio Agarwal
[2018-06-17] MEDS: Heparin 25,000 UNIT/250 ML D5W 25,000 UNIT/250 ML IV.SOLN IVC SCH (11:51)
[2018-06-17] MEDS: Metoprolol XL (24 HR) Succ 25 MG TAB.ER.24H PO SCH ×2 (11:54→21:02)
[2018-06-17] MEDS: Levofloxacin 750 MG/150 ML 750 MG/150 ML BAG IVPB SCH (14:36)
[2018-06-18] MEDS: methylPREDNISolone 125 MG/2 ML VIAL IVP SCH ×4 (00:48→23:56)
[2018-06-18] MEDS: Piperacillin/Tazobactam 3.375 GM in 0.9 % Sodium Chloride Mini Bag 100 ML IVPB SCH ×4 (00:50→23:55)
[2018-06-18 04:05] LABS: Basophils # 0.1 K/mcL (0.0-0.2); Basophils % 0.3 %; Hematocrit 39.9 % (37.5-50.1); Hemoglobin 12.9 g/dL (12.9-16.9); Immature Granulocytes % 1.2 % (0-4); Lymphocytes # 0.6 K/mcL (0.6-4.6); Lymphocytes % 2.9 %; Mean Corpuscular HGB Conc 32.3 g/dL (31.6-35.5); Mean Corpuscular Volume 95.9 fL (83.0-100.0); Mean Platelet Volume 9.9 fL (9.4-12.4); Monocytes # 0.6 K/mcL (0.0-1.3); Neutrophils # 17.9 K/mcL (1.6-8.9); Platelet Count 285 K/mcL (140-400); Red Blood Count 4.16 M/mcL (4.19-5.50); Red Cell Distribution Width 14.3 % (11.5-14.5); Segmented Neutrophils % 92.6 %
[2018-06-18] MEDS: Ipratropium Neb 0.5 MG NEBULIZER IH SCH ×6 (04:11→23:56)
[2018-06-18] MEDS: Levalbuterol Neb 1.25 MG/3 ML IH SCH ×6 (04:11→23:56)
[2018-06-18 04:29] LABS: Alanine Aminotransferase 246 Units/L (7-52); Albumin 3.5 g/dL (3.5-5.7); Albumin/Globulin Ratio 1.3 (1.1-2.2); Alkaline Phosphatase 65 Units/L (34-104); Aspartate Amino Transferase 55 Units/L (13-39); BUN/Creatinine Ratio 49 (6-26); Bilirubin,Direct 0.1 mg/dL (0.0-0.2); Bilirubin,Indirect 0.4 mg/dL (0.0-1.2); Bilirubin,Total 0.5 mg/dL (0.3-1.0); Blood Urea Nitrogen 28 mg/dL (6-20); Calcium 8.8 mg/dL (8.6-10.3); Carbon Dioxide 31 mEq/L (23-29); Chloride 95 mEq/L (98-107); Globulin 2.8 g/dL (2.4-3.5); Glucose 172 mg/dL (70-105); Osmolality,Calculated 298 (280-300); Potassium 4.3 mEq/L (3.5-5.1); Sodium 139 mEq/L (136-145); Total Protein 6.3 g/dL (6.4-8.9); eGFR For Non-African Americans > 60 (> 60)
[2018-06-18] MEDS: Acetaminophen 325 MG TABLET PO PRN ×3 (05:17→21:16)
[2018-06-18 06:56] LABS: Estimated Average Glucose 134 mg/dl; Hemoglobin A1C 6.3 %
[2018-06-18] MEDS: Budesonide/Formoterol 160/4.5 1 PUFF INH IH SCH ×2 (07:30→19:30)
[2018-06-18] MEDS: risperiDONE 1 MG TABLET PO SCH ×2 (09:54→21:15)
[2018-06-18] MEDS: Cholecalciferol (D-3) 1,000 UNIT TABLET PO SCH (09:54)
[2018-06-18] MEDS: Metoprolol XL (24 HR) Succ 25 MG TAB.ER.24H PO SCH (09:54)
[2018-06-18] MEDS: Aspirin Enteric Coated 81 MG Tablet PO SCH (09:55)
[2018-06-18] MEDS: Thiamine (B-1) 100 MG TABLET PO SCH (09:55)
[2018-06-18] MEDS: Nicotine 21 MG PATCH.TD24 TD SCH (09:55)
--- NOTE | 2018-06-18 10:25 | Cardiology Progress Note ---
Date of Encounter: 06/18/18 Time of Encounter: 09:00 Assessment and Plan (1) Atrial fibrillation with RVR Current Visit: Yes Status: Acute Per cardiology: -New onset a.fib RVR in the setting of COPD exacerbation, Pneumonia. Now in SR. -Denies palpitations, fluttering. -ON toprol 25mg BID and cardizem drip at 15mg/hour. -[id number] score 1 (HTN). On asa. TTE pending. Hemoglobin A1C with pre-diabetes noted. Patient appears to be a poor candidate for residential anticoagulation. Patient is schizophrenic and plan for inpatient psych admission. Also documented non-compliance. -Will increase BB, wean cardizem drip to off. -TTE. -Will repeat ECG to confirm SR. -Will continue to monitor. (2) Peripheral edema Current Visit: Yes Status: Acute Per cardiology: -Lower extremity edema noted, states ongoing for about one week. -Sitting in chair, legs dependent. -No CHF noted on chest xray and CT. -Will give IV lasix x1 now. -Recommend ANA hose and leg elevation. Discussion w patient/family: The assessment and plan as outlined above was discussed with the patient who expressed understanding and agreement. All questions were answered. Thank you for involving us in the care of your patient. Please call with any questions. Discussed and reviewed with Subjective Principal diagnosis: PNA, COPD exacerbation Interval history: Patient reports respiratory status is improved. Objective Vital Signs, Last 4 Hours Temp Pulse Resp BP Pulse Ox 06/18/18 07:30 18 96 06/18/18 06:54 97.7 F 83 26 119/84 96 General: Conversant, No Apparent Distress HEENT: Atraumatic, Normocephaly, Mucus Membranes Moist Neck: No JVD, Normal carotid pulses Cardiac: Reg Rate and Rhythm, Normal S1 and S2, No Murmur Lungs: Other (Lung sounds diminished throughout. ) Neuro: Alert and responsive, No focal deficits noted Abdomen: Soft, Non-Tender Skin: No rashes noted on visualized skin Musculoskeletal: No Chest Wall Tenderness Extremities: No Clubbing, No Cyanosis, Normal Pulses, Other (2+ bilateral lower extremity pitting edema noted. ) Results 06/18/18 03:57 06/18/18 03:57 Lab Results Active Medications Acetaminophen (Tylenol) 650 mg PO Q6HR PRN PRN Reason: Mild Pain/Fever Stop: 12/14/18 10:08 Last Admin: 06/18/18 05:17 Dose: 650 mg Documented by: Aspirin (Aspirin Ec) 81 mg PO DAILY [facility] Stop: 12/16/18 09:01 Last Admin: 06/18/18 09:55 Dose: 81 mg Documented by: Budesonide/Formoterol Fumarate (Symbicort) 2 puff IH BIDR [facility]; Protocol Stop: 12/16/18 22:01 Last Admin: 06/18/18 07:30 Dose: 2 puff Documented by: Docusate Sodium (Colace) 100 mg PO BID PRN PRN Reason: Constipation Stop: 12/14/18 21:01 Haloperidol (Haldol) 5 mg PO Q8H PRN PRN Reason: Agitation Stop: 12/15/18 11:47 Heparin Sodium (Porcine) (Heparin) 5,500 unit 70 unit/kg (5500 unit) IVP Q6HR PRN PRN Reason: SEE COMMENTS Stop: 12/17/18 09:19 Heparin Sodium (Porcine) (Heparin) 2,700 unit 35 unit/kg (2700 unit) IVP Q6H PRN PRN Reason: SEE COMMENTS Stop: 12/17/18 09:19 Hydralazine HCl (Hydralazine) 5 mg IVP Q6HR PRN PRN Reason: systolic >160 Stop: 12/17/18 01:02 Last Admin: 06/18/18 05:14 Dose: 5 mg Documented by: Piperacillin Sod/Tazobactam (Sod 3.375 gm/ Sodium Chloride) 100 mls @ 25 mls/hr IVPB Q8H [facility] Stop: 12/17/18 08:01 Last Admin: 06/18/18 09:55 Dose: 25 mls/hr Documented by: Heparin Sodium/Dextrose (Heparin 25,000 Unit/250 Ml D5w) 25,000 unit in 250 mls @ 10.906 mls/hr IVC .[id number] [facility]; Protocol Stop: 12/17/18 09:31 Last Titration: 06/18/18 04:47 Dose: 11.04 unit/kg/hr, 8.6 mls/hr Documented by: Levofloxacin/Dextrose (Levaquin Premix 750mg/150 Ml) 750 mg in 150 mls @ 100 mls/hr IVPB DAILY@1300 [facility]; Protocol Stop: 12/14/18 11:01 Last Infusion: 06/17/18 16:00 Dose: Infused Documented by: Diltiazem HCl 125 mg/ Sodium (Chloride) 125 mls @ 0 mls/hr IVC CONT [facility]; Protocol Stop: 12/17/18 04:16 Last Infusion: 06/18/18 06:37 Dose: 15 mls/hr Documented by: Ipratropium [place] (Atrovent Neb) 0.5 mg IH [id number] [facility] Stop: 12/14/18 16:01 Last Admin: 06/18/18 07:30 Dose: 0.5 mg Documented by: Levalbuterol HCl (Xopenex) 1.25 mg IH [id number] [facility] Stop: 12/14/18 12:01 Last Admin: 06/18/18 07:30 Dose: 1.25 mg Documented by: Lisinopril (Zestril) 5 mg PO DAILY [facility]; Protocol Stop: 12/15/18 09:46 Last Admin: 06/18/18 09:56 Dose: Not Given Documented by: Methylprednisolone (Solu-Medrol) 80 mg IVP Q8HR [facility] Stop: 12/16/18 17:31 Last Admin: 06/18/18 09:55 Dose: 80 mg Documented by: Metoprolol Succinate (Toprol Xl) 25 mg PO ONCE ONE Stop: 06/19/18 10:17 Metoprolol Succinate (Toprol Xl) 50 mg PO BID [facility] Stop: 12/18/18 21:01 Naloxone HCl (Narcan) 0.4 mg IVP Q2MPRN PRN PRN Reason: SEE COMMENTS Stop: 12/14/18 10:13 Nicotine (Nicoderm) 21 mg TD DAILY [facility] Stop: 12/15/18 09:01 Last Admin: 06/18/18 09:55 Dose: 21 mg Documented by: Ondansetron HCl (Zofran) 4 mg IVP Q6HR PRN PRN Reason: Nausea And Vomiting Stop: 12/14/18 10:08 Risperidone (Risperdal) 2 mg PO BID [facility] Stop: 12/15/18 11:46 Last Admin: 06/18/18 09:54 Dose: 2 mg Documented by: Thiamine HCl (Vitamin B-1) 100 mg PO DAILY [facility] Stop: 12/14/18 14:31 Last Admin: 06/18/18 09:55 Dose: 100 mg Documented by: Throat Lozenges (Cepacol Sore Throat Lozenge) 1 each MM Q2H PRN PRN Reason: Sore Throat/Dry mouth Stop: 12/16/18 00:18 Last Admin: 06/17/18 06:21 Dose: 1 each Documented by: Vitamin D (Vitamin D) 1,000 unit PO DAILY [facility] Stop: 12/16/18 09:01 Last Admin: 06/18/18 09:54 Dose: 1,000 unit Documented by: Laboratory Tests 06/17/18 06/18/18 06/18/18 07:53 03:57 03:57 WBC 19.3 H Hgb 12.9 Creatinine 0.57 L Hemoglobin A1c TSH Cancelled 06/18/18 03:57 WBC Hgb Creatinine Hemoglobin A1c 6.3 H TSH - Imaging and Cardiology Chest Xray: report reviewed Echo: pending - EKG Interpretation EKG results cardiology: other (Telemetry reviewed with average HR previous 12 hours noted to be 93, a.fib. Now in SR on telemetry. PVCs noted.) Consult Discharge Plan - Plan Referrals: [facility] [Primary Care Provider] -
[2018-06-18] MEDS ORDERED: Furosemide 40 MG/4 ML VIAL IVP ONE (10:31)
[2018-06-18] MEDS ORDERED: Metoprolol XL (24 HR) Succ 25 MG TAB.ER.24H PO ONE (11:50)
[2018-06-18] MEDS: Levofloxacin 750 MG/150 ML 750 MG/150 ML BAG IVPB SCH (14:07)
[2018-06-18] MEDS: Heparin 25,000 UNIT/250 ML D5W 25,000 UNIT/250 ML IV.SOLN IVC SCH (15:18)
--- NOTE | 2018-06-18 16:19 | Electrocardiograph Report ---
[address] [address] Test Date: 2018-06-18 Pat Name: Pratik Mullins Department: 111 Room: 2N7 Gender: M Cosmetic Surgeon: : 1960 Requested By: Fannie Kauffman Order Number: [id number] Reading MD: Sonny Rabago Measurements Intervals [place] Rate: 97 P: 82 [place]: 120 QRS: 59 QRSD: 96 T: 37 QT: 312 QTc: 366 Interpretive Statements SINUS RHYTHM Electronically Signed On 06-18-2018 16:18:03 EDT by Sonny Rabago
--- NOTE | 2018-06-18 17:14 | Internal Med Progress Note ---
Hospitalist Progress Note - Encounter Date of Encounter: 06/18/18 Time of Encounter: 13:14 - Subjective Interval History: Still requiring BiPAP. BiPAP dependent. Heart rate is better therefore weaning down diltiazem drip. Nursing staff at bedside. Review the lab Denies fever chills nausea vomiting headache dizziness chest pain abdominal pain diarrhea - Exam Vitals: Temp Pulse Resp BP Pulse Ox 97.7 F 98 26 161/85 91 06/18/18 06:54 06/18/18 16:11 06/18/18 16:11 06/18/18 16:11 06/18/18 16:11 Exam: General appearance: No acute distress. On BiPAP Eye exam: EOMI, PERRLA ENT exam: Moist oral mucosa Neck nontender, supple Respiratory exam: Decreased breath sound bilaterally more on left side with wheezing Cardiovascular exam: A. fib with RVR no systolic murmur Abdominal exam: Soft, nontender, nondistended, positive bowel sounds Extremities exam: No calf tenderness, +1/2 pedal edema Present: Skin-no rash, warm, dry, intact Neurological exam: Alert, awake, oriented 3, CN II-XII intact, no focal deficits. No facial droop. - Assessment and Plan (1) Atrial fibrillation with RVR Current Visit: Yes Status: Acute Assessment and Plan: Onset A. fib with RVR. Cardizem drip weaning of. Further increased in beta josephine as per cardiology recommendation. For now continue heparin drip. Ongoing cardiology. Most likely due to underlying respiratory illness as present chief medical complaint -[id number] score 1 (HTN). Echocardiogram Impressions: LVEF 60-65%. Normal left ventricular size and systolic function. There is evidence of mild diastolic dysfunction of the left ventricle. Normal right ventricular size and function. No significant valvular dysfunction. Estimated RVSP was 14 mmHg. No pulmonary hypertension. Left Ventricular Wall Motion: Rest Echo Findings All wall segments showed normal motion. (2) Acute and chronic respiratory failure with hypoxia Current Visit: Yes Status: Acute Assessment and Plan: Worse. Consulted buckle and button maker and ABG ordered-pulmonologists started high-dose systemic a steroid 80 mg IV 3 times a day. High PCO2 therefore BiPAP continue. Also advised to de-escalate antibiotic. Started Symbicort-may take at least to 3 weeks for him to recover On admission Patient actively in respiratory distress distress- BiPAP in ER Patient wears 2 L oxygen continuously at baseline. CTA chest ruled out PE Continue bronchodilators. Closely monitor. Lasix 1 dose was given by head bucker today as patient has pedal edema but no CHF noted on chest x-ray and CT. Also recommended ANA hose and leg elevation (3) Acute exacerbation of chronic obstructive airways disease Current Visit: Yes Status: Acute Assessment and Plan: Patient was hospitalized and treated for COPD exacerbation at [facility] last week and transferred to the [place] 7 days ago. Continue IV steroids and IV antibiotics (Vanc, Zosyn, Levaquin) for possible HCAP-- MRSA nasal swab screen negative therefore vancomycin is stopped. Blood cultures and sputum culture with no growth yet respiratory infectious panel-positive for human metapneumo virus urine strep pneumo and legionella antigens -negative Continue Xopenex secondary to persistent tachycardia with albuterol nebs. Smoking cessation education given. Nicotine patch. CT/CT angio chest IMPRESSION: No evidence of pulmonary embolism. Multiple tree-in-bud and ground-glass nodules throughout the right middle lobe and right lower lobe and to a lesser degree in the right upper lobe suggesting an atypical pneumonia. Multiple likely infectious/inflammatory nodules throughout the right lung. Recommend close interval follow-up to resolution. Moderate to severe centrilobular emphysema. (4) Pneumonia Current Visit: Yes Status: Acute Assessment and Plan: Viral pneumonia Atypical pneumonia bilateral based on CT scan. Possible hospital acquired pneumonia as well due to recent hospitalization. Worsening symptoms therefore consulted buckle and button maker As mentioned above. As per buckle and button maker note - advised to de-escalate antibiotic-will try 1 or 2 days when patient is started to recover as is still elevated white count though trending down Started Symbicort-may take at least to 3 weeks for him to recover (5) HTN (hypertension) Current Visit: No Status: Chronic Assessment and Plan: Normal blood pressure. Continue beta josephine and lisinopril. Will start ACTZ. Close monitoring. (6) Paranoid schizophrenia, chronic condition Current Visit: Yes Status: Acute Assessment and Plan: Talk to his psychiatrist Dr. arreola at [facility] and he advised to start risperidone 2 mg by mouth twice a day scheduled as it had control his agitation in the past. He also advised Haldol 5 mg by mouth every 6 hours for agitation when necessary and it can be changed to IV if cannot be given oral. inpt psychiatric consultation also done -reviewed the note - advised to consider inpatient psych admission once medically cleared. Appreciate their input . Patient has been on the medical unit at the [place] secondary to shortness of breath while awaiting a psych bed for suicidal ideation. Patient denies active suicidal or homicidal ideation at this time. (7) Sinus tachycardia Current Visit: Yes Status: Acute Assessment and Plan: Patient is in A. fib Impressions: LVEF 60-65%. Normal left ventricular size and systolic function. There is evidence of mild diastolic dysfunction of the left ventricle. Normal right ventricular size and function. No significant valvular dysfunction. Estimated RVSP was 14 mmHg. No pulmonary hypertension. (8) DVT prophylaxis Current Visit: No Status: Acute Assessment and Plan: Heparin subcutaneous. (9) Goals of care, counseling/discussion Current Visit: Yes Status: Acute Assessment and Plan: Will consider inpatient psych admission once medically cleared. Psychiatrist following the patient-appreciate their recommendation. S (10) Tobacco abuse Current Visit: Yes Status: Chronic Assessment and Plan: Tobacco cessation discussed. Nicotine patch ordered. - Time Spent with Patient Total time spent is greater than 50% in coordination of care (as documented) at patient's floor/unit and/or counseling patient: 25 - 35 minutes Plan of Care Discussed with: patient Internal Medicine: Result - Labs CBC & Chem 7: 06/18/18 03:57 06/18/18 03:57 Labs: Short CBC 06/18/18 Range/Units 03:57 WBC 19.3 H (4.3-11.1) K/mcL Hgb 12.9 (12.9-16.9) g/dL Hct 39.9 (37.5-50.1) % Plt Count 285 (140-400) K/mcL Neutrophils # 17.9 H (1.6-8.9) K/mcL BMP 06/18/18 03:57 Sodium 139 Potassium 4.3 Chloride 95 L Carbon Dioxide 31 H BUN 28 H Creatinine 0.57 L Glucose 172 H Calcium 8.8 Liver Function 06/18/18 Range/Units 03:57 Total Bilirubin 0.5 (0.3-1.0) mg/dL Direct Bilirubin 0.1 (0.0-0.2) mg/dL AST 55 H (13-39) Units/L ALT 246 H (7-52) Units/L Alkaline Phosphatase 65 (34-104) Units/L Albumin 3.5 (3.5-5.7) g/dL - ABG Interpretation ABG results: ABG ABG pH 7.37 pH Units (7.32-7.45) 06/16/18 10:35 ABG pCO2 61 mmHg (35-45) H 06/16/18 10:35 ABG pO2 92 mmHg (85-104) 06/16/18 10:35 ABG O2 Saturation 97 % (95-98) 06/16/18 10:35 PT/INR, D-dimer PT 10.7 Seconds (9.4-12.1) 06/17/18 09:55 - Impressions Impressions Echocardiogram 06/18/18 08:06 Impressions: LVEF 65%. Normal LV chamber size, wall thickness and function. Normal right ventricular structure and function. Mild tricuspid regurgitation. No pulmonary hypertension. Left Ventricular Wall Motion: Rest Echo Findings All wall segments showed normal motion. Findings: Study Quality * Technically sub-optimal due to poor echocardiographic windows. ECG Findings * Poor tracing, likely sinus rhythm. Left Ventricle * LVEF 65%. * Normal LV chamber size, wall thickness and systolic function. * Normal left ventricular diastolic function. Right Ventricle * Normal right ventricular structure and function. Left Atrium * Normal left atrial size. Right Atrium * Normal right atrial size. Interatrial Septum * Interatrial septum not well evaluated. Aortic Valve * Aortic valve not well visualized. * No aortic stenosis. * No aortic regurgitation. Mitral Valve * Normal mitral valve structure. * No mitral stenosis. * No mitral regurgitation. Tricuspid Valve * Normal tricuspid valve structure. * No tricuspid stenosis. * Mild tricuspid regurgitation. * Estimated RVSP is 28 mmHg. * Estimated RA pressure is 8 mmHg. * No pulmonary hypertension. Pulmonic Valve * Pulmonic valve is not well visualized. * No pulmonic stenosis. * No pulmonic regurgitation. Aorta * Normally sized aortic root. Pericardium * The pericardium appears normal. IVC * The IVC is dilated. * > 50% respiratory change Consult Discharge Plan - Plan [facility]errals: [facility] [Primary Care Provider] - (4) Pneumonia Qualifiers: Aspiration pneumonia type: unspecified Laterality: bilateral Lung location: unspecified part of lung (5) HTN (hypertension) Qualifiers: Hypertension type: essential hypertension Qualified Code(s): I10 - Essential (primary) hypertension
[2018-06-18] MEDS: Metoprolol XL (24 HR) Succ 50 MG TAB.ER.24H PO SCH (21:16)
--- NOTE | 2018-06-18 22:27 | Event Note ---
Date of Encounter: 06/18/18 Time of Encounter: 22:00 Patient flagged for sepsis risk due to respiratory rate of 29 and heart rate of 97 Patient is afebrile with blood pressure 127/93 95% on BiPAP, white blood cell count decreasing from a high of 26.1 on June 15 to 19.3 today This is not a change in patient's recent baseline Patient being treated for a COPD exacerbation possibly due to viral etiology with pulmonology on board and atrial fibrillation for which he is currently being weaned off heparin to oral beta josephine. No concern for worsening sepsis at this time
[2018-06-19] MEDS: Ipratropium Neb 0.5 MG NEBULIZER IH SCH ×6 (03:19→23:53)
[2018-06-19] MEDS: Levalbuterol Neb 1.25 MG/3 ML IH SCH ×6 (03:19→23:53)
[2018-06-19] MEDS: Acetaminophen 325 MG TABLET PO PRN ×2 (06:10→18:07)
[2018-06-19 06:33] LABS: Basophils % 0.2 %; Hematocrit 39.7 % (37.5-50.1); Hemoglobin 12.9 g/dL (12.9-16.9); Immature Granulocytes % 1.8 % (0-4); Lymphocytes # 0.9 K/mcL (0.6-4.6); Lymphocytes % 5.2 %; Mean Corpuscular HGB Conc 32.5 g/dL (31.6-35.5); Mean Corpuscular Hemoglobin 30.8 pg (28.0-33.3); Mean Corpuscular Volume 94.7 fL (83.0-100.0); Mean Platelet Volume 10.4 fL (9.4-12.4); Monocytes # 0.6 K/mcL (0.0-1.3); Monocytes % 3.2 %; Neutrophils # 15.6 K/mcL (1.6-8.9); Platelet Count 278 K/mcL (140-400); Red Blood Count 4.19 M/mcL (4.19-5.50); Segmented Neutrophils % 89.6 %
[2018-06-19 06:51] LABS: BUN/Creatinine Ratio 53 (6-26); Blood Urea Nitrogen 34 mg/dL (6-20); Calcium 9.2 mg/dL (8.6-10.3); Carbon Dioxide 39 mEq/L (23-29); Chloride 94 mEq/L (98-107); Glucose 149 mg/dL (70-105); Osmolality,Calculated 300 (280-300); Sodium 140 mEq/L (136-145); eGFR For Non-African Americans > 60 (> 60)
[2018-06-19] MEDS: Budesonide/Formoterol 160/4.5 1 PUFF INH IH SCH ×2 (07:55→20:37)
[2018-06-19 08:22] LABS: Platelet Estimate Normal (Normal)
[2018-06-19] MEDS: Piperacillin/Tazobactam 3.375 GM in 0.9 % Sodium Chloride Mini Bag 100 ML IVPB SCH ×3 (09:03→23:59)
[2018-06-19] MEDS: Nicotine 21 MG PATCH.TD24 TD SCH (09:09)
[2018-06-19] MEDS: Cholecalciferol (D-3) 1,000 UNIT TABLET PO SCH (09:09)
[2018-06-19] MEDS: hydroCHLOROthiazide 25 MG TABLET PO SCH (09:09)
[2018-06-19] MEDS: Aspirin Enteric Coated 81 MG Tablet PO SCH (09:09)
[2018-06-19] MEDS: risperiDONE 1 MG TABLET PO SCH ×2 (09:09→21:38)
[2018-06-19] MEDS: Metoprolol XL (24 HR) Succ 50 MG TAB.ER.24H PO SCH ×2 (09:09→21:38)
[2018-06-19] MEDS: methylPREDNISolone 125 MG/2 ML VIAL IVP SCH ×3 (09:09→23:58)
[2018-06-19] MEDS: Thiamine (B-1) 100 MG TABLET PO SCH (09:09)
[2018-06-19] MEDS ORDERED: Metoprolol XL (24 HR) Succ 25 MG TAB.ER.24H PO ONE (10:16)
--- NOTE | 2018-06-19 11:34 | Internal Med Progress Note ---
Hospitalist Progress Note - Encounter Date of Encounter: 06/19/18 Time of Encounter: 11:31 - Subjective Interval History: Still requiring BiPAP overnight and slight longer duration of BiPAP in between the meals . Is still use accessory respiratory muscles when off from BiPAP. Review the lab Denies fever chills nausea vomiting headache dizziness chest pain abdominal pain diarrhea - Exam Vitals: Temp Pulse Resp BP Pulse Ox 97.5 F L 86 18 143/99 95 06/19/18 07:03 06/19/18 07:03 06/19/18 11:23 06/19/18 07:03 06/19/18 11:23 Exam: General appearance: No acute distress. Off from BiPAP right now Eye exam: EOMI, PERRLA ENT exam: Moist oral mucosa Neck nontender, supple Respiratory exam: Decreased breath sound bilaterally more on left side with wheezing Cardiovascular exam: tachycardia, NSR, no systolic murmur Abdominal exam: Soft, nontender, nondistended, positive bowel sounds Extremities exam: No calf tenderness, +1/2 pedal edema Present: Skin-no rash, warm, dry, intact Neurological exam: Alert, awake, oriented 3, CN II-XII intact, no focal deficits. No facial droop. - Assessment and Plan (1) Atrial fibrillation with RVR Current Visit: Yes Status: Acute Assessment and Plan: No sinus rhythm but is still tachycardic while on Cardizem drip 6 mg per hour. Range Master managing. Continue beta josephine Toprol 50 mg by mouth twice a day. May need to add Cardizem oral versus further increase in beta josephine and discontinuation of heparin drip-but again will wait for cardiology advice. Most likely due to underlying respiratory illness as present chief medical complaint -Tnhyk1rows score 1 (HTN). Echocardiogram Impressions: LVEF 60-65%. Normal left ventricular size and systolic function. There is evidence of mild diastolic dysfunction of the left ventricle. Normal right ventricular size and function. No significant valvular dysfunction. Estimated RVSP was 14 mmHg. No pulmonary hypertension. Left Ventricular Wall Motion: Rest Echo Findings All wall segments showed normal motion. (2) Acute and chronic respiratory failure with hypoxia Current Visit: Yes Status: Acute Assessment and Plan: stable. Consulted clinical services professional and ABG ordered-pulmonologists started high-dose systemic a steroid 80 mg IV 3 times a day. High PCO2 therefore BiPAP continue. Also advised to de-escalate antibiotic. Started Symbicort-may take at least to 3 weeks for him to recover On admission Patient actively in respiratory distress distress- BiPAP in ER Patient wears 2 L oxygen continuously at baseline. CTA chest ruled out PE Continue bronchodilators. Closely monitor. Lasix 1 dose was given by coil strapper on 06/18/2018 as patient has pedal edema but no CHF noted on chest x-ray and CT. Also recommended ANA hose and leg elevation Started his home dose hydrochlorothiazide-diuretic (3) Acute exacerbation of chronic obstructive airways disease Current Visit: Yes Status: Acute Assessment and Plan: Patient was hospitalized and treated for COPD exacerbation at [facility] last week and transferred to the [place] 7 days ago before this admission. Continue IV steroids and IV antibiotics (Vanc, Zosyn, Levaquin) for possible HCAP-- MRSA nasal swab screen negative therefore vancomycin is stopped. Blood cultures and sputum culture with no growth yet respiratory infectious panel-positive for human metapneumo virus urine strep pneumo and legionella antigens -negative Continue Xopenex secondary to persistent tachycardia with albuterol nebs. Smoking cessation education given. Nicotine patch. CT/CT angio chest IMPRESSION: No evidence of pulmonary embolism. Multiple tree-in-bud and ground-glass nodules throughout the right middle lobe and right lower lobe and to a lesser degree in the right upper lobe suggesting an atypical pneumonia. Multiple likely infectious/inflammatory nodules throughout the right lung. Recommend close interval follow-up to resolution. Moderate to severe centrilobular emphysema. Will plan to wean down IV Solu-Medrol possibly in 1-2 days based on clinical response (4) Pneumonia Current Visit: Yes Status: Acute Assessment and Plan: Viral pneumonia Atypical pneumonia bilateral based on CT scan. Possible hospital acquired pneumonia as well due to recent hospitalization. Worsening symptoms therefore c onsulted clinical services professional As mentioned above. As per clinical services professional note - advised to de-escalate antibiotic-will try 1 or 2 days when patient is started to recover as is still elevated white count though trending down Started Symbicort-may take at least to 3 weeks for him to recover (5) HTN (hypertension) Current Visit: No Status: Chronic Assessment and Plan: Normal blood pressure. Continue beta josephine and lisinopril. started ACTZ. Close monitoring. (6) Paranoid schizophrenia, chronic condition Current Visit: Yes Status: Acute (7) Sinus tachycardia Current Visit: Yes Status: Acute (8) DVT prophylaxis Current Visit: No Status: Acute Assessment and Plan: Heparin subcutaneous. (9) Goals of care, counseling/discussion Current Visit: Yes Status: Acute Assessment and Plan: Will consider inpatient psych admission once medically cleared. Psychiatrist following the patient-appreciate their recommendation. (10) Tobacco abuse Current Visit: Yes Status: Chronic Assessment and Plan: Tobacco cessation discussed. Nicotine patch ordered. - Time Spent with Patient Total time spent is greater than 50% in coordination of care (as documented) at patient's floor/unit and/or counseling patient: 25 - 35 minutes Plan of Care Discussed with: patient Internal Medicine: Result - Labs CBC & Chem 7: 06/19/18 05:35 06/19/18 05:35 Labs: Short CBC 06/19/18 Range/Units 05:35 WBC 17.4 H (4.3-11.1) K/mcL Hgb 12.9 (12.9-16.9) g/dL Hct 39.7 (37.5-50.1) % Plt Count 278 (140-400) K/mcL Neutrophils # 15.6 H (1.6-8.9) K/mcL BMP 06/19/18 05:35 Sodium 140 Potassium 4.0 Chloride 94 L Carbon Dioxide 39 H BUN 34 H Creatinine 0.64 L Glucose 149 H Calcium 9.2 - ABG Interpretation ABG results: ABG ABG pH 7.37 pH Units (7.32-7.45) 06/16/18 10:35 ABG pCO2 61 mmHg (35-45) H 06/16/18 10:35 ABG pO2 92 mmHg (85-104) 06/16/18 10:35 ABG O2 Saturation 97 % (95-98) 06/16/18 10:35 PT/INR, D-dimer PT 10.7 Seconds (9.4-12.1) 06/17/18 09:55 - Impressions Impressions Echocardiogram 06/18/18 08:06 Impressions: LVEF 65%. Normal LV chamber size, wall thickness and function. Normal right ventricular structure and function. Mild tricuspid regurgitation. No pulmonary hypertension. Left Ventricular Wall Motion: Rest Echo Findings All wall segments showed normal motion. Findings: Study Quality * Technically sub-optimal due to poor echocardiographic windows. ECG Findings * Poor tracing, likely sinus rhythm. Left Ventricle * LVEF 65%. * Normal LV chamber size, wall thickness and systolic function. * Normal left ventricular diastolic function. Right Ventricle * Normal right ventricular structure and function. Left Atrium * Normal left atrial size. Right Atrium * Normal right atrial size. Interatrial Septum * Interatrial septum not well evaluated. Aortic Valve * Aortic valve not well visualized. * No aortic stenosis. * No aortic regurgitation. Mitral Valve * Normal mitral valve structure. * No mitral stenosis. * No mitral regurgitation. Tricuspid Valve * Normal tricuspid valve structure. * No tricuspid stenosis. * Mild tricuspid regurgitation. * Estimated RVSP is 28 mmHg. * Estimated RA pressure is 8 mmHg. * No pulmonary hypertension. Pulmonic Valve * Pulmonic valve is not well visualized. * No pulmonic stenosis. * No pulmonic regurgitation. Aorta * Normally sized aortic root. Pericardium * The pericardium appears normal. IVC * The IVC is dilated. * > 50% respiratory change Consult Discharge Plan - Plan [facility]errals: [facility] [Primary Care Provider] - (4) Pneumonia Qualifiers: Aspiration pneumonia type: unspecified Laterality: bilateral Lung location: unspecified part of lung (5) HTN (hypertension) Qualifiers: Hypertension type: essential hypertension Qualified Code(s): I10 - Essential (primary) hypertension
[2018-06-19] MEDS: Levofloxacin 750 MG/150 ML 750 MG/150 ML BAG IVPB SCH (15:40)
[2018-06-19] MEDS: Heparin 25,000 UNIT/250 ML D5W 25,000 UNIT/250 ML IV.SOLN IVC SCH (19:28)
[2018-06-20] MEDS: Ipratropium Neb 0.5 MG NEBULIZER IH SCH ×5 (03:49→20:10)
[2018-06-20] MEDS: Levalbuterol Neb 1.25 MG/3 ML IH SCH ×2 (03:49→07:34)
[2018-06-20 07:18] LABS: Hematocrit 36.2 % (37.5-50.1); Hemoglobin 11.9 g/dL (12.9-16.9); Mean Corpuscular HGB Conc 32.9 g/dL (31.6-35.5); Mean Corpuscular Hemoglobin 31.1 pg (28.0-33.3); Mean Corpuscular Volume 94.5 fL (83.0-100.0); Mean Platelet Volume 10.2 fL (9.4-12.4); Neutrophils # 13.9 K/mcL (1.6-8.9); Platelet Count 236 K/mcL (140-400); Red Blood Count 3.83 M/mcL (4.19-5.50); Red Cell Distribution Width 13.7 % (11.5-14.5)
[2018-06-20] MEDS: Budesonide/Formoterol 160/4.5 1 PUFF INH IH SCH ×2 (07:34→20:10)
[2018-06-20 07:39] LABS: BUN/Creatinine Ratio 59 (6-26); Blood Urea Nitrogen 30 mg/dL (6-20); Calcium 8.9 mg/dL (8.6-10.3); Carbon Dioxide 44 mEq/L (23-29); Chloride 93 mEq/L (98-107); Glucose 160 mg/dL (70-105); Osmolality,Calculated 300 (280-300); Potassium 3.7 mEq/L (3.5-5.1); Sodium 140 mEq/L (136-145); eGFR For Non-African Americans > 60 (> 60)
[2018-06-20 08:16] LABS: Lymphocytes # 1.3 K/mcL (0.6-4.6); Monocytes # 0.6 K/mcL (0.0-1.3); Reactive Lymphocytes Present (Not Present)
[2018-06-20 08:17] LABS: Platelet Estimate Normal (Normal)
[2018-06-20 08:35] LABS: ABG Base Excess 16 mEq/L (-2 to 3); ABG HCO3 44 mEq/L (21-27); ABG Oxygen Saturation 96 % (95-98); ABG PCO2 64 mmHg (35-45); ABG PH 7.44 pH Units (7.32-7.45); ABG PO2 84 mmHg (85-104); ABG TCO2 46 mEq/L (20-26)
--- NOTE | 2018-06-20 09:00 | Pulmonology Progress Note ---
Date of Encounter: 06/20/18 Time of Encounter: 08:30 Assessment and Plan (1) Acute exacerbation of chronic obstructive airways disease Current Visit: Yes Status: Acute I have reviewed his ABG which shows mainly metabolic alkalosis and naturally PCO2 will go up for compensation and patient overall feeling better and is asking if he can go home. Since his blood culture has been negative I will stop his Levaquin and to complete Zosyn for 5-7 days. I will give him a dose of Diamox that might help his metabolic alkalosis and if he is oxygenating within acceptable range, no need for BiPAP since that will make it more alkalosis with washing PCO2. Systemic steroid can be transitioned to oral prednisone in next 24 hours. Please call for any questions. Subjective Principal diagnosis: PNA, COPD exacerbation Interval history: Patient stated he is feeling better today and he wants to be off BiPAP so he can eat his breakfast. Objective PUL Vital signs: Last Vital Signs Temp 98.0 F 06/20/18 08:42 Pulse 140 06/20/18 08:42 Resp 18 06/20/18 08:42 BP 160/109 06/20/18 08:42 Pulse Ox 93 06/20/18 08:42 General appearance: no acute distress Eyes: nonicteric ENT: oropharynx dry Neck: supple Effort: normal Auscultation: bilateral: diminished breath sounds Percussion: bilateral: not dull Cardiovascular: regular rate and rhythm Gastrointestinal: normoactive bowel sounds, non-distended Extremities: no cyanosis normal mental status, non-focal exam mood appropriate Results - Laboratory Findings CBC and BMP: 06/20/18 06:41 06/20/18 06:41 ABG ABG pH 7.44 pH Units (7.32-7.45) 06/20/18 08:31 ABG pCO2 64 mmHg (35-45) H 06/20/18 08:31 ABG pO2 84 mmHg (85-104) L 06/20/18 08:31 ABG O2 Saturation 96 % (95-98) 06/20/18 08:31 PT/INR, D-dimer PT 10.7 Seconds (9.4-12.1) 06/17/18 09:55 Abnormal lab findings: Abnormal lab results WBC 15.8 K/mcL (4.3-11.1) H 06/20/18 06:41 RBC 3.83 M/mcL (4.19-5.50) L 06/20/18 06:41 Hgb 11.9 g/dL (12.9-16.9) L 06/20/18 06:41 Hct 36.2 % (37.5-50.1) L 06/20/18 06:41 13.9 K/mcL (1.6-8.9) H 06/20/18 06:41 0.5 K/mcL (0.6-4.6) L 06/17/18 08:58 Present (Not Present) A 06/20/18 06:41 Heparin Anti-Xa, Unfract 0.86 IU/mL (0.30-0.70) H 06/17/18 18:19 ABG pCO2 64 mmHg (35-45) H 06/20/18 08:31 ABG pO2 84 mmHg (85-104) L 06/20/18 08:31 ABG HCO3 44 mEq/L (21-27) H 06/20/18 08:31 ABG Total CO2 46 mEq/L (20-26) H 06/20/18 08:31 ABG O2 Saturation 99 % (95-98) H 06/14/18 11:43 ABG Base Excess 16 mEq/L (-2 to 3) H 06/20/18 08:31 Sodium 135 mEq/L (136-145) L 06/14/18 07:55 Chloride 93 mEq/L (98-107) L 06/20/18 06:41 Carbon Dioxide 44 mEq/L (23-29) H* 06/20/18 06:41 BUN 30 mg/dL (6-20) H 06/20/18 06:41 0.51 mg/dL (0.70-1.30) L 06/20/18 06:41 59 (6-26) H 06/20/18 06:41 Glucose 160 mg/dL (70-105) H 06/20/18 06:41 6.3 % (-5.6) H 06/18/18 03:57 AST 55 Units/L (13-39) H 06/18/18 03:57 ALT 246 Units/L (7-52) H 06/18/18 03:57 6.3 g/dL (6.4-8.9) L 06/18/18 03:57 Human Metapneumovir PCR DETECTED (Not Detect) A 06/14/18 16:05 - Microbiology Findings Microbiology Findings: Microbiology, Last 48 Hours 06/14/18 07:54 Blood Culture - Final Peripheral Venipuncture No growth. Final report. 06/14/18 07:55 Blood Culture - Final Peripheral Venipuncture No growth. Final report. - Clinical Findings Intake & Output: Intake & Output 06/19/18 06/20/18 06/20/18 23:59 07:59 15:59 Intake Total 330 / 1475.0 125 / 125 Output Total 675 / 900 400 / 400 Balance -345 / 575.0 125 / -275 -400 / -275 Weight 76.2 kg Consult Discharge Plan - Plan Referrals: [facility]P [Primary Care Provider] -
--- NOTE | 2018-06-20 09:25 | Internal Med Progress Note ---
Hospitalist Progress Note - Encounter Date of Encounter: 06/20/18 Time of Encounter: 09:00 - Subjective Interval History: Still requiring BiPAP overnight but he feels slightly better and shortness of breath. Review the lab and eyewear consultant notes Denies fever chills nausea vomiting headache dizziness chest pain abdominal pain diarrhea - Exam Vitals: Temp Pulse Resp BP Pulse Ox 98.0 F 140 18 160/109 93 06/20/18 08:42 06/20/18 08:42 06/20/18 08:42 06/20/18 08:42 06/20/18 08:42 Exam: General appearance: No acute distress. On nasal cannula oxygen at this time Eye exam: EOMI, PERRLA ENT exam: Moist oral mucosa Neck nontender, supple Respiratory exam: Decreased breath sound bilaterally more on left side with wheezing-slight better Cardiovascular exam: A. fib with RVR, no systolic murmur Abdominal exam: Soft, nontender, nondistended, positive bowel sounds Extremities exam: No calf tenderness, +1/2 pedal edema Present: Skin-no rash, warm, dry, intact Neurological exam: Alert, awake, oriented 3, CN II-XII intact, no focal deficits. No facial droop. - Assessment and Plan (1) Atrial fibrillation with RVR Current Visit: Yes Status: Acute Assessment and Plan: Still in A. fib RVR. Cardizem drip was discontinued as patient was in normal sinus rhythm. We consulted cardiology who advised to increase Toprol 100 mg by mouth twice a day and his start Cardizem drip to titrate while keeping heart rate below 100 and continue heparin drip. Once patient in the normal sinus rhythm then will add oral Cardizem if heart rate is still not controlled on beta josephine only. Most likely due to underlying respiratory illness as present chief medical complaint -[id number] score 1 (HTN). Echocardiogram Impressions: LVEF 60-65%. Normal left ventricular size and systolic function. There is evidence of mild diastolic dysfunction of the left ventricle. Normal right ventricular size and function. No significant valvular dysfunction. Estimated RVSP was 14 mmHg. No pulmonary hypertension. Left Ventricular Wall Motion: Rest Echo Findings All wall segments showed normal motion. (2) Acute and chronic respiratory failure with hypoxia Current Visit: Yes Status: Acute Assessment and Plan: Is patient is still has been kind of BiPAP dependent with abnormal ABG therefore IV consulted elect equip maint eng for further recommendation. He advised to stop Levaquin but continue Zosyn for 5-7 days. He also gave him a dose of Diamox that might help his metabolic alkalosis. BiPAP discontinued at this time as it well make him more alkalosis with washing PCO2. Will start tapering IV Solu- Medrol and transitioned to oral prednisone and next 1-2 days. Continue#x breathing treatment On admission Patient actively in respiratory distress distress- BiPAP in ER Patient wears 2 L oxygen continuously at baseline. CTA chest ruled out PE Continue bronchodilators. Closely monitor. Lasix 1 dose was given by meat boner and slicer on 06/18/2018 as patient has pedal edema but no CHF noted on chest x-ray and CT. Also recommended ANA hose and leg elevation Started his home dose hydrochlorothiazide-diuretic (3) Acute exacerbation of chronic obstructive airways disease Current Visit: Yes Status: Acute Assessment and Plan: Patient was hospitalized and treated for COPD exacerbation at [facility] last week and transferred to the [place] 7 days ago before this admission. Continue IV steroids and IV antibiotics (Vanc, Zosyn, Levaquin) for possible HCAP-- MRSA nasal swab screen negative therefore vancomycin is stopped. Blood cultures and sputum culture with no growth yet respiratory infectious panel-positive for human metapneumo virus urine strep pneumo and legionella antigens -negative Continue Xopenex secondary to persistent tachycardia with albuterol nebs. Smoking cessation education given. Nicotine patch. CT/CT angio chest IMPRESSION: No evidence of pulmonary embolism. Multiple tree-in-bud and ground-glass nodules throughout the right middle lobe and right lower lobe and to a lesser degree in the right upper lobe suggesting an atypical pneumonia. Multiple likely infectious/inflammatory nodules throughout the right lung. Recommend close interval follow-up to resolution. Moderate to severe centrilobular emphysema. Please see above for further plan (4) Pneumonia Current Visit: Yes Status: Acute Assessment and Plan: Viral pneumonia Atypical pneumonia bilateral based on CT scan. Possible hospital acquired pneumonia as well due to recent hospitalization. Worsening symptoms therefore consulted elect equip maint eng As mentioned above. As per elect equip maint eng note - stopped Levaquin on 06/20/2018. Continue Zosyn for 5-7 days Started Symbicort- (5) HTN (hypertension) Current Visit: No Status: Chronic Assessment and Plan: Normal blood pressure. Continue beta josephine and lisinopril. started HCTZ. Close monitoring. (6) Paranoid schizophrenia, chronic condition Current Visit: Yes Status: Acute Assessment and Plan: Talk to his psychiatrist Dr. arreola at [facility] and he advised to start risperidone 2 mg by mouth twice a day scheduled as it had control his agitation in the past. He also advised Haldol 5 mg by mouth every 6 hours for agitation when necessary and it can be changed to IV if cannot be given oral. inpt psychiatric consultation also done -reviewed the note - advised to consider inpatient psych admission once medically cleared. Appreciate their input . Patient has been on the medical unit at the [facility] secondary to shortness of breath while awaiting a psych bed for suicidal ideation. Patient denies active suicidal or homicidal ideation at this time. (7) Sinus tachycardia Current Visit: Yes Status: Acute Assessment and Plan: Patient is in A. fib Impressions: LVEF 60-65%. Normal left ventricular size and systolic function. There is evidence of mild diastolic dysfunction of the left ventricle. Normal right ventricular size and function. No significant valvular dysfunction. Estimated RVSP was 14 mmHg. No pulmonary hypertension. (8) Goals of care, counseling/discussion Current Visit: Yes Status: Acute Assessment and Plan: Will consider inpatient psych admission once medically cleared. Psychiatrist following the patient-appreciate their recommendation. Spent more than 35 minutes in patient care and coordination with patient, nursing staff, respiratory therapist, consultants pulmonary and cardiology (9) Tobacco abuse Current Visit: Yes Status: Chronic Assessment and Plan: Tobacco cessation discussed. Nicotine patch ordered. (10) DVT prophylaxis Current Visit: No Status: Acute Assessment and Plan: Heparin drip - Time Spent with Patient Total time spent is greater than 50% in coordination of care (as documented) at patient's floor/unit and/or counseling patient: Greater than 35 minutes Plan of Care Discussed with: patient Internal Medicine: Result - Labs CBC & Chem 7: 06/20/18 06:41 06/20/18 06:41 Labs: Short CBC 06/20/18 Range/Units 06:41 WBC 15.8 H (4.3-11.1) K/mcL Hgb 11.9 L (12.9-16.9) g/dL Hct 36.2 L (37.5-50.1) % Plt Count 236 (140-400) K/mcL Neutrophils # 13.9 H (1.6-8.9) K/mcL BMP 06/20/18 06:41 Sodium 140 Potassium 3.7 Chloride 93 L Carbon Dioxide 44 H* BUN 30 H Creatinine 0.51 L Glucose 160 H Calcium 8.9 - ABG Interpretation ABG results: ABG ABG pH 7.44 pH Units (7.32-7.45) 06/20/18 08:31 ABG pCO2 64 mmHg (35-45) H 06/20/18 08:31 ABG pO2 84 mmHg (85-104) L 06/20/18 08:31 ABG O2 Saturation 96 % (95-98) 06/20/18 08:31 PT/INR, D-dimer PT 10.7 Seconds (9.4-12.1) 06/17/18 09:55 Consult Discharge Plan - Plan [facility]errals: [facility] [Primary Care Provider] - (4) Pneumonia Qualifiers: Aspiration pneumonia type: unspecified Laterality: bilateral Lung location: unspecified part of lung (5) HTN (hypertension) Qualifiers: Hypertension type: essential hypertension Qualified Code(s): I10 - Essential (primary) hypertension
[2018-06-20] MEDS: methylPREDNISolone 125 MG/2 ML VIAL IVP SCH ×2 (09:29→15:53)
[2018-06-20] MEDS: Piperacillin/Tazobactam 3.375 GM in 0.9 % Sodium Chloride Mini Bag 100 ML IVPB SCH ×2 (09:29→15:53)
[2018-06-20] MEDS: hydroCHLOROthiazide 25 MG TABLET PO SCH (09:30)
[2018-06-20] MEDS: Acetaminophen 325 MG TABLET PO PRN ×2 (09:30→20:51)
[2018-06-20] MEDS: risperiDONE 1 MG TABLET PO SCH ×2 (09:30→20:46)
[2018-06-20] MEDS: Aspirin Enteric Coated 81 MG Tablet PO SCH (09:30)
[2018-06-20] MEDS: Cholecalciferol (D-3) 1,000 UNIT TABLET PO SCH (09:31)
[2018-06-20] MEDS: Thiamine (B-1) 100 MG TABLET PO SCH (09:31)
[2018-06-20] MEDS: Nicotine 21 MG PATCH.TD24 TD SCH (09:31)
[2018-06-20] MEDS: Metoprolol XL (24 HR) Succ 50 MG TAB.ER.24H PO SCH ×2 (09:31→20:56)
[2018-06-20] MEDS ORDERED: Metoprolol XL (24 HR) Succ 50 MG TAB.ER.24H PO ONE (10:45)
[2018-06-20] MEDS: Levalbuterol Neb 0.63 MG/3 ML IH SCH ×3 (11:30→20:10)
--- NOTE | 2018-06-20 11:31 | Cardiology Progress Note ---
Date of Encounter: 06/20/18 Time of Encounter: 10:45 Assessment and Plan (1) Atrial fibrillation with RVR Current Visit: Yes Status: Acute Per cardiology: -New onset a.fib RVR in the setting of COPD exacerbation, Pneumonia. Patient previously converted to normal sinus rhythm and cardiology signed off. Patient is now back in atrial fibrillation with RVR and cardiology was asked to see patient for recommendations. -Denies palpitations, fluttering. -TTE completed on 06/18/2018 shows EF 65%. There was mild tricuspid regurgitation. No pulmonary hypertension. TSH was normal. -ON toprolxl 50mg BID. Currently not on Cardizem drip. Metoprolol XL increased 100 mg twice a day. Titrate Cardizem drip to keep heart rate less than 100 bpm. -[id number] score 1 (HTN). On asa. Heparin restarted by primary team. Hemoglobin A1C with pre-diabetes noted. Patient appears to be a poor candidate for termite exterminator helper anticoagulation. Patient is schizophrenic and plan for inpatient psych admission. Also documented non-compliance. We will continue to follow with you. Discussion w patient/family: The assessment and plan as outlined above was discussed with the patient and/or family members who expressed understanding and agreement. All questions were answered. Thank you for involving us in the care of your patient. Please call wi th any questions. Subjective Principal diagnosis: PNA, COPD exacerbation Interval history: Patient drowsy on my exam. Denies chest pain, palpitations, or shortness of breath. Objective Vital Signs, Last 4 Hours Temp Pulse Resp BP Pulse Ox 06/20/18 08:42 98.0 F 140 18 160/109 93 06/20/18 08:33 28 95 06/20/18 07:38 14 98 General: Conversant, No Apparent Distress HEENT: Atraumatic, Normocephaly, Mucus Membranes Moist Neck: No JVD, Normal carotid pulses Cardiac: Other (Irregularly irregular) Lungs: Normal Breath Sounds, No Wheeze, Rales, Rhonchi Neuro: Alert and responsive, No focal deficits noted Abdomen: Soft, Non-Tender, Other (Moderate amount of ecchymosis noted) Skin: No rashes noted on visualized skin Musculoskeletal: No Chest Wall Tenderness Extremities: No Clubbing, No Cyanosis, No Edema, Normal Pulses Results 06/20/18 06:41 06/20/18 06:41 Lab Results 06/20/18 06/20/18 06:41 06:41 WBC 15.8 H Hgb 11.9 L Hct 36.2 L Plt Count 236 Sodium 140 Potassium 3.7 Chloride 93 L Carbon Dioxide 44 H* BUN 30 H Creatinine 0.51 L Glucose 160 H Calcium 8.9 - Imaging and Cardiology Echo: report reviewed - EKG Interpretation EKG results cardiology: personally reviewed Consult Discharge Plan - Plan [facility]errals: [facility] [Primary Care Provider] -
[2018-06-21] MEDS: Levalbuterol Neb 0.63 MG/3 ML IH SCH ×6 (00:17→19:56)
[2018-06-21] MEDS: Ipratropium Neb 0.5 MG NEBULIZER IH SCH ×6 (00:17→19:56)
[2018-06-21] MEDS: methylPREDNISolone 125 MG/2 ML VIAL IVP SCH ×2 (00:20→08:51)
[2018-06-21] MEDS: Piperacillin/Tazobactam 3.375 GM in 0.9 % Sodium Chloride Mini Bag 100 ML IVPB SCH ×3 (00:20→17:11)
[2018-06-21] MEDS: Heparin 25,000 UNIT/250 ML D5W 25,000 UNIT/250 ML IV.SOLN IVC SCH (01:43)
[2018-06-21] MEDS: Budesonide/Formoterol 160/4.5 1 PUFF INH IH SCH ×2 (07:40→19:56)
[2018-06-21 07:44] LABS: Basophils % 0.2 %; Hematocrit 38.7 % (37.5-50.1); Hemoglobin 12.7 g/dL (12.9-16.9); Immature Granulocytes % 2.3 % (0-4); Lymphocytes # 0.8 K/mcL (0.6-4.6); Lymphocytes % 4.9 %; Mean Corpuscular HGB Conc 32.8 g/dL (31.6-35.5); Mean Corpuscular Hemoglobin 30.8 pg (28.0-33.3); Mean Corpuscular Volume 93.9 fL (83.0-100.0); Mean Platelet Volume 10.3 fL (9.4-12.4); Monocytes # 0.6 K/mcL (0.0-1.3); Monocytes % 3.6 %; Platelet Count 242 K/mcL (140-400); Red Blood Count 4.12 M/mcL (4.19-5.50); Red Cell Distribution Width 13.4 % (11.5-14.5)
[2018-06-21 08:02] LABS: Magnesium 2.1 mg/dL (1.6-2.6)
[2018-06-21] MEDS: Aspirin Enteric Coated 81 MG Tablet PO SCH (08:45)
[2018-06-21] MEDS: Metoprolol XL (24 HR) Succ 50 MG TAB.ER.24H PO SCH ×2 (08:45→21:57)
[2018-06-21] MEDS: hydroCHLOROthiazide 25 MG TABLET PO SCH (08:45)
[2018-06-21] MEDS: Cholecalciferol (D-3) 1,000 UNIT TABLET PO SCH (08:45)
[2018-06-21] MEDS: Thiamine (B-1) 100 MG TABLET PO SCH (08:45)
[2018-06-21] MEDS: risperiDONE 1 MG TABLET PO SCH ×2 (08:45→21:57)
[2018-06-21] MEDS: Acetaminophen 325 MG TABLET PO PRN ×2 (08:45→17:10)
[2018-06-21] MEDS: Nicotine 21 MG PATCH.TD24 TD SCH (08:46)
[2018-06-21 08:58] LABS: BUN/Creatinine Ratio 49 (6-26); Blood Urea Nitrogen 32 mg/dL (6-20); Calcium 9.2 mg/dL (8.6-10.3); Carbon Dioxide 39 mEq/L (23-29); Chloride 96 mEq/L (98-107); Glucose 167 mg/dL (70-105); Osmolality,Calculated 301 (280-300); Potassium 4.1 mEq/L (3.5-5.1); Sodium 140 mEq/L (136-145); eGFR For Non-African Americans > 60 (> 60)
--- NOTE | 2018-06-21 09:41 | Internal Med Progress Note ---
Hospitalist Progress Note - Encounter Date of Encounter: 06/21/18 Time of Encounter: 09:41 - Subjective Interval History: not requiring BiPAP. better shortness of breath. NSR on telemetry while on cardizem drip 2.5/hr. Review the lab and outplacement consultant notes Denies fever chills nausea vomiting headache dizziness chest pain abdominal pain diarrhea - Exam Vitals: Temp Pulse Resp BP Pulse Ox 97.9 F 99 19 131/85 94 06/21/18 08:18 06/21/18 08:18 06/21/18 08:18 06/21/18 08:18 06/21/18 08:18 Exam: General appearance: No acute distress. On nasal cannula oxygen at this time Eye exam: EOMI, PERRLA ENT exam: Moist oral mucosa Neck nontender, supple Respiratory exam: Decreased breath sound bilaterally more on left side with wheezing- better Cardiovascular exam: NSR. no systolic murmur Abdominal exam: Soft, nontender, nondistended, positive bowel sounds Extremities exam: No calf tenderness, +1/2 pedal edema Present: Skin-no rash, warm, dry, intact Neurological exam: Alert, awake, oriented 3, CN II-XII intact, no focal deficits. No facial droop. - Assessment and Plan (1) Atrial fibrillation with RVR Current Visit: Yes Status: Acute Assessment and Plan: Normal sinus rhythm now while on Cardizem drip. Review of the outplacement consultant note. Stopped Cardizem drip and a started oral Cardizem 120 mg daily and increase Toprol 100 mg by mouth twice a day. Stopped heparin drip. Most likely due to underlying respiratory illness as present chief medical complaint -[id number] score 1 (HTN).Patient appears to be a poor candidate for prison anticoagulation. Patient is schizophrenic and plan for inpatient psych admission. Also documented non-compliance. Continue asa only. Cardiology signed off Echocardiogram Impressions: LVEF 60-65%. Normal left ventricular size and systolic function. There is evidence of mild diastolic dysfunction of the left ventricle. Normal right ventricular size and function. No significant valvular dysfunction. Estimated RVSP was 14 mmHg. No pulmonary hypertension. Left Ventricular Wall Motion: Rest Echo Findings All wall segments showed normal motion. (2) Acute and chronic respiratory failure with hypoxia Current Visit: Yes Status: Acute Assessment and Plan: Patient is off from BiPAP now. Pulmonologists on board. He advised to stop Levaquin but continue Zosyn for 5-7 days. He also gave him a dose of Diamox that might help his metabolic alkalosis. tapering IV Solu-Medrol 40 mg IV every 8 hour and transitioned to oral prednisone and next 1-2 days-slow tapering as patient has recurrence of symptom while rapid tapering of his steroid. Continue#x breathing treatment. On admission Patient actively in respiratory distress distress- BiPAP in ER Patient wears 2 L oxygen continuously at baseline. CTA chest ruled out PE Continue bronchodilators. Closely monitor. Lasix 1 dose was given by curator medical museum on 06/18/2018 as patient has pedal edema but no CHF noted on chest x-ray and CT. Also recommended ANA hose and leg elevation Started his home dose hydrochlorothiazide-diuretic (3) Acute exacerbation of chronic obstructive airways disease Current Visit: Yes Status: Acute Assessment and Plan: Patient was hospitalized and treated for COPD exacerbation at [facility] last week and transferred to the [place] 7 days ago before this admission. Continue IV steroids and IV antibiotics (Vanc, Zosyn, Levaquin) for possible HCAP-- MRSA nasal swab screen negative therefore vancomycin is stopped. Blood cultures and sputum culture with no growth yet respiratory infectious panel-positive for human metapneumo virus urine strep pneumo and legionella antigens -negative Continue Xopenex secondary to persistent tachycardia with albuterol nebs. Smoking cessation education given. Nicotine patch. CT/CT angio chest IMPRESSION: No evidence of pulmonary embolism. Multiple tree-in-bud and ground-glass nodules throughout the right middle lobe and right lower lobe and to a lesser degree in the right upper lobe suggesting an atypical pneumonia. Multiple likely infectious/inflammatory nodules throughout the right lung. Recommend close interval follow-up to resolution. Moderate to severe centrilobular emphysema. Please see above for further plan (4) Pneumonia Current Visit: Yes Status: Acute Assessment and Plan: Viral pneumonia Atypical pneumonia bilateral based on CT scan. Possible hospital acquired pneumonia as well due to recent hospitalization. As per porcelain finisher note - stopped Levaquin on 06/20/2018. Continue Zosyn for 7 days Started Symbicort- (5) HTN (hypertension) Current Visit: No Status: Chronic Assessment and Plan: Normal blood pressure. Continue beta josephine and lisinopril. started HCTZ. Close monitoring. (6) Paranoid schizophrenia, chronic condition Current Visit: Yes Status: Acute Assessment and Plan: Talk to his psychiatrist Dr. arreola at [place] [facility] and he advised to start risperidone 2 mg by mouth twice a day scheduled as it had control his agitation in the past. He also advised Haldol 5 mg by mouth every 6 hours for agitation when necessary and it can be changed to IV if cannot be given oral. inpt psychiatric consultation also done -reviewed the note - advised to consider inpatient psych admission once medically cleared. Appreciate their input . Patient has been on the medical unit at the [place] secondary to shortness of breath while awaiting a psych bed for suicidal ideation. Patient denies active suicidal or homicidal ideation at this time. (7) Sinus tachycardia Current Visit: Yes Status: Acute Assessment and Plan: as above Impressions: LVEF 60-65%. Normal left ventricular size and systolic function. There is evidence of mild diastolic dysfunction of the left ventricle. Normal right ventricular size and function. No significant valvular dysfunction. Estimated RVSP was 14 mmHg. No pulmonary hypertension. (8) Goals of care, counseling/discussion Current Visit: Yes Status: Acute Assessment and Plan: Will consider inpatient psych admission once medically cleared. Psychiatrist following the patient-appreciate their recommendation. Possible discharge in 1 or 2 days a patient continued to improve while tapering the medication. (9) Tobacco abuse Current Visit: Yes Status: Chronic Assessment and Plan: Tobacco cessation discussed. Nicotine patch ordered. (10) DVT prophylaxis Current Visit: No Status: Acute Assessment and Plan: Heparin s/q - Time Spent with Patient Total time spent is greater than 50% in coordination of care (as documented) at patient's floor/unit and/or counseling patient: 25 - 35 minutes Internal Medicine: Result - Labs CBC & Chem 7: 06/21/18 04:00 06/21/18 04:00 Labs: Short CBC 06/21/18 Range/Units 04:00 WBC 16.8 H (4.3-11.1) K/mcL Hgb 12.7 L (12.9-16.9) g/dL Hct 38.7 (37.5-50.1) % Plt Count 242 (140-400) K/mcL Neutrophils # 15.0 H (1.6-8.9) K/mcL BMP 06/21/18 04:00 Sodium 140 Potassium 4.1 Chloride 96 L Carbon Dioxide 39 H BUN 32 H Creatinine 0.65 L Glucose 167 H Calcium 9.2 - ABG Interpretation ABG results: ABG ABG pH 7.44 pH Units (7.32-7.45) 06/20/18 08:31 ABG pCO2 64 mmHg (35-45) H 06/20/18 08:31 ABG pO2 84 mmHg (85-104) L 06/20/18 08:31 ABG O2 Saturation 96 % (95-98) 06/20/18 08:31 PT/INR, D-dimer PT 10.7 Seconds (9.4-12.1) 06/17/18 09:55 Consult Discharge Plan - Plan [facility]errals: [facility] [Primary Care Provider] - (4) Pneumonia Qualifiers: Aspiration pneumonia type: unspecified Laterality: bilateral Lung location: unspecified part of lung (5) HTN (hypertension) Qualifiers: Hypertension type: essential hypertension Qualified Code(s): I10 - Essential (primary) hypertension
--- NOTE | 2018-06-21 10:39 | Cardiology Progress Note ---
Date of Encounter: 06/21/18 Time of Encounter: 10:37 Assessment and Plan (1) Atrial fibrillation with RVR Current Visit: Yes Status: Acute Per cardiology: -New onset a.fib RVR in the setting of COPD exacerbation, Pneumonia. Patient previously converted to normal sinus rhythm and cardiology signed off. Patient developed recurrent atrial fibrillation with RVR and cardiology was asked to see patient for recommendations. -Denies palpitations, fluttering. -TTE completed on 06/18/2018 shows EF 65%. There was mild tricuspid regurgitation. No pulmonary hypertension. TSH was normal. -ON toprolxl 100 mg BID. Currently on Cardizem drip 2.5 mg/hR. NSR on telemetry. Convert cardizem gtt to 120 mg cardizem CD oral. Titrate as needed for recurrent afib. -[id number] score 1 (HTN). On asa. Heparin restarted by primary team. Hemoglobin A1C with pre-diabetes noted. Patient appears to be a poor candidate for [facility] anticoagulation. Patient is schizophrenic and plan for inpatient psych admission. Also documented non-compliance. Continue asa only. Out pt cardiology f/u will be coordinated. Cardiology will sign off. Call with questions. Discussion w patient/family: The assessment and plan as outlined above was discussed with the patient and/or family members who expressed understanding and agreement. All questions were answered. Thank you for involving us in the care of your patient. Please call with any questions. Subjective Principal diagnosis: PNA, COPD exacerbation Interval history: Patient more alert today. Laying half in bed and half in chair. Denies chest pain, SOB, or palpitations. Converted to NSR. Objective Vital Signs, Last 4 Hours Temp Pulse Resp BP Pulse Ox 06/21/18 08:18 97.9 F 99 19 131/85 94 General: Conversant, No Apparent Distress HEENT: Atraumatic, Normocephaly, Mucus Membranes Moist Neck: No JVD, Normal carotid pulses Cardiac: Reg Rate and Rhythm, Normal S1 and S2, No Murmur Lungs: Normal Breath Sounds, No Wheeze, Rales, Rhonchi Neuro: Alert and responsive, No focal deficits noted Abdomen: Soft, Non-Tender, Other (Abdomen soft, ecchymosis noted.) Skin: No rashes noted on visualized skin Musculoskeletal: No Chest Wall Tenderness Extremities: No Clubbing, No Cyanosis, No Edema, Normal Pulses Results 06/21/18 04:00 06/21/18 04:00 Lab Results 06/21/18 06/21/18 04:00 04:00 WBC 16.8 H Hgb 12.7 L Hct 38.7 Plt Count 242 Sodium 140 Potassium 4.1 Chloride 96 L Carbon Dioxide 39 H BUN 32 H Creatinine 0.65 L Glucose 167 H Calcium 9.2 Magnesium 2.1 - Imaging and Cardiology Echo: report reviewed Consult Discharge Plan - Plan [facility]errals: [facility] [Primary Care Provider] -
[2018-06-21] MEDS: Diltiazem CD (24hr) 120 MG CAPSULE PO SCH (11:28)
[2018-06-21] MEDS: *HR* Heparin 5,000 UNIT/ML VIAL SQ SCH (17:10)
[2018-06-21] MEDS: MethylPREDNISolone 40 MG/ML VIAL IVP SCH (17:10)
[2018-06-22] MEDS: Piperacillin/Tazobactam 3.375 GM in 0.9 % Sodium Chloride Mini Bag 100 ML IVPB SCH ×3 (00:07→16:16)
[2018-06-22] MEDS: MethylPREDNISolone 40 MG/ML VIAL IVP SCH ×3 (00:09→16:16)
[2018-06-22] MEDS: Levalbuterol Neb 0.63 MG/3 ML IH SCH ×5 (00:09→20:03)
[2018-06-22] MEDS: Ipratropium Neb 0.5 MG NEBULIZER IH SCH ×6 (00:10→20:03)
[2018-06-22] MEDS: *HR* Heparin 5,000 UNIT/ML VIAL SQ SCH ×2 (05:47→18:20)
[2018-06-22] MEDS: Acetaminophen 325 MG TABLET PO PRN ×3 (05:53→22:41)
[2018-06-22] MEDS: Budesonide/Formoterol 160/4.5 1 PUFF INH IH SCH ×2 (07:31→20:03)
[2018-06-22 07:53] LABS: Basophils % 0.1 %; Hematocrit 37.3 % (37.5-50.1); Immature Granulocytes % 1.8 % (0-4); Lymphocytes # 0.7 K/mcL (0.6-4.6); Lymphocytes % 4.8 %; Mean Corpuscular HGB Conc 32.2 g/dL (31.6-35.5); Mean Corpuscular Hemoglobin 30.7 pg (28.0-33.3); Mean Corpuscular Volume 95.4 fL (83.0-100.0); Mean Platelet Volume 10.3 fL (9.4-12.4); Monocytes # 0.4 K/mcL (0.0-1.3); Monocytes % 2.8 %; Neutrophils # 13.1 K/mcL (1.6-8.9); Platelet Count 242 K/mcL (140-400); Red Blood Count 3.91 M/mcL (4.19-5.50); Red Cell Distribution Width 13.3 % (11.5-14.5); Segmented Neutrophils % 90.5 %
[2018-06-22 08:24] LABS: BUN/Creatinine Ratio 55 (6-26); Blood Urea Nitrogen 29 mg/dL (6-20); Carbon Dioxide 40 mEq/L (23-29); Chloride 95 mEq/L (98-107); Glucose 183 mg/dL (70-105); Osmolality,Calculated 303 (280-300); Potassium 3.9 mEq/L (3.5-5.1); Sodium 141 mEq/L (136-145); eGFR For Non-African Americans > 60 (> 60)
[2018-06-22] MEDS: risperiDONE 1 MG TABLET PO SCH ×2 (09:27→22:40)
[2018-06-22] MEDS: Thiamine (B-1) 100 MG TABLET PO SCH (09:27)
[2018-06-22] MEDS: hydroCHLOROthiazide 25 MG TABLET PO SCH (09:27)
[2018-06-22] MEDS: Diltiazem CD (24hr) 120 MG CAPSULE PO SCH (09:27)
[2018-06-22] MEDS: Metoprolol XL (24 HR) Succ 50 MG TAB.ER.24H PO SCH ×2 (09:27→22:40)
[2018-06-22] MEDS: Cholecalciferol (D-3) 1,000 UNIT TABLET PO SCH (09:27)
[2018-06-22] MEDS: Nicotine 21 MG PATCH.TD24 TD SCH (09:28)
[2018-06-22] MEDS: Aspirin Enteric Coated 81 MG Tablet PO SCH (09:28)
--- NOTE | 2018-06-22 10:44 | Discharge Summary ---
Date of Encounter: 06/22/18 Time of Encounter: 10:39 - Discharge Diagnosis (1) Acute exacerbation of chronic obstructive airways disease Priority: Primary Status: Acute (2) HTN (hypertension) Priority: Secondary Status: Chronic Qualifiers: Hypertension type: essential hypertension Qualified Code(s): I10 - Essential (primary) hypertension (3) Tobacco abuse Priority: Secondary Status: Chronic (4) Acute and chronic respiratory failure with hypoxia Priority: Secondary Status: Acute (5) Paranoid schizophrenia, chronic condition Priority: Secondary Status: Chronic (6) Sinus tachycardia Priority: Secondary Status: Chronic (7) Pneumonia Priority: Primary Status: Acute Qualifiers: Pneumonia type: due to unspecified organism Laterality: bilateral Lung location: unspecified part of lung Qualified Code(s): J18.9 - Pneumonia, unspecified organism (8) Atrial fibrillation with RVR Priority: Secondary Status: Resolved Hospital course: Mr. Mullins is a 58 year old male with history of hypertension, COPD, paranoid schizophrenia presented from the [facility] shortness of breath and cough. He was being treated for psychiatric complaints at the [facility] and required increasing medical therapy she was transferred here. Patient was treated for COPD exacerbation and pneumonia. He has gradually improved. He has been weaned back down to his home O2 dose of 2.5 L of oxygen. Symptomatically he feels much better. Patient will be discharged back to [facility]. Discharge discussed with: patient - Time Spent with Patient Total time spent providing and/or coordinating discharge services: Time spent: Greater than 30 minutes (45 minutes) - Discharge Medications Prescriptions: New Amoxicillin/Clavulanate [Augmentin] 875 mg PO BIDWM #3 tablet Diltiazem CD (24hr) [Cardizem CD] 120 mg PO DAILY cap.er.24h predniSONE [PredniSONE] See Taper PO DAILY #30 tablet Metoprolol XL (24 HR) Succ [Toprol Xl] 100 mg PO BID tab.er.24h Continued Budesonide/Formoterol 160/4.5 [Symbicort 160/4.5] 2 puff IH BIDR Albuterol Sulfate [Albuterol Inhaler] 2 puff IH TID PRN PRN Reason: Shortness Of Breath Cholecalciferol (D-3) [Vitamin D] 1,000 unit PO DAILY Tiotropium [Spiriva] 1 puff IH DAILY Aspirin [Lo-Dose Aspirin EC] 81 mg PO DAILY hydroCHLOROthiazide [Hydrochlorothiazide] 25 mg PO DAILY Acetaminophen [Tylenol] 325 mg PO TID PRN PRN Reason: Pain Lisinopril [Zestril] 5 mg PO DAILY Home Medications: Albuterol Sulfate [Albuterol Inhaler] 2 puff IH TID PRN 06/14/16 [History] Aspirin [Lo-Dose Aspirin EC] 81 mg PO DAILY 06/14/16 [History] Budesonide/Formoterol 160/4.5 [Symbicort 160/4.5] 2 puff IH BIDR 06/14/16 [History] Cholecalciferol (D-3) [Vitamin D] 1,000 unit PO DAILY 06/14/16 [History] Tiotropium [Spiriva] 1 puff IH DAILY 06/14/16 [History] Acetaminophen [Tylenol] 325 mg PO TID PRN 06/15/16 [History] hydroCHLOROthiazide [Hydrochlorothiazide] 25 mg PO DAILY 06/15/16 [History] Lisinopril [Zestril] 5 mg PO DAILY 06/14/18 [History] Amoxicillin/Clavulanate [Augmentin] 875 mg PO BIDWM #3 tablet 06/22/18 [Rx] Diltiazem CD (24hr) [Cardizem CD] 120 mg PO DAILY cap.er.24h 06/22/18 [Rx] Metoprolol XL (24 HR) Succ [Toprol Xl] 100 mg PO BID tab.er.24h 06/22/18 [Rx] predniSONE [PredniSONE] See Taper PO DAILY #30 tablet 06/22/18 [Rx] Allergies/Adverse Reactions: Allergy/AdvReac Type Severity Reaction Status Date / Time No Known Allergies Allergy Verified 06/14/18 06:58 Date of admission: 06/14/18 10:59 Primary care physician: [facility] Consults: 06/14/18 10:07 Consult to Nurse Navigator [CONS] Routine Comment: 06/14/18 11:17 Consult to Electronics Supervisor [CONS] Routine Reason for SW Consult: ARRANGE D/C BACK TO [facility] 06/14/18 15:19 Consult to Psychiatry [CONS] Routine Consulting Provider: [facility] [place] Reason consult: Medication recommendation Other reason and/or additional details: has paranoid schizophrenia was suicidal however now no SI or HI - [facility] medically stable however is not on Any medications 06/16/18 09:47 Consult to Pulmonology [CONS] Routine Consulting Provider: [facility] [place] Reason for Consult: Hospital acquired pneumonia with bilateral groundglass appearance in CT, worsening symptoms Call Completed: Yes 06/17/18 10:07 Consult to Cardiology [CONS] Routine Comment: Consulting Provider: Cardiology [place] Reason for Consult: New A. fib with RVR Call Completed: Yes Discharging clinician: Kory Mann Anticipated date of discharge: 06/22/18 - Constitutional Vitals: Temp Pulse Resp BP Pulse Ox 97.8 F 100 19 139/98 97 06/22/18 07:52 06/22/18 07:52 06/22/18 07:52 06/22/18 07:52 06/22/18 09:38 General appearance: Present: cooperative, A&O X 3, pleasant, answers questions appropriately Exam: . - Respiratory Respiratory exam: Present: wheezes (mild, diffuse). Absent: rales, respiratory distress, rhonchi, tachypnea - Cardiovascular Cardiovascular exam: Present: tachycardia (regular). Absent: irregular rhythm - Psychiatric Additional comments: rambling speech - Patient Status Disposition: Transfer Psychiatric Hosp Condition: Fair Functional capacity at discharge: independent ambulation Overall status at discharge: patient is progressing back to baseline - Discharge Instructions [facility] With: [facility] [Primary Care Provider[facility] - Additional Instructions: Please follow-up with your PCP within one week. Please take her antibiotic to completed. Please take your prednisone with tapering dose as directed. Please resume your home medications. Please work with the [facility] facility. Please return for any new or worsening symptoms. - Diet and Activity Activity: increase activity as tolerated, wear oxygen at all times Diet: low salt diet - VTE Documentation of Mechanical Device: Graduated compression elastic hosiery
[2018-06-23] MEDS: Levalbuterol Neb 0.63 MG/3 ML IH SCH ×5 (00:25→15:30)
[2018-06-23] MEDS: Ipratropium Neb 0.5 MG NEBULIZER IH SCH ×5 (00:25→15:30)
[2018-06-23] MEDS: Piperacillin/Tazobactam 3.375 GM in 0.9 % Sodium Chloride Mini Bag 100 ML IVPB SCH ×2 (01:28→08:38)
[2018-06-23] MEDS: MethylPREDNISolone 40 MG/ML VIAL IVP SCH ×2 (01:28→08:36)
[2018-06-23] MEDS: *HR* Heparin 5,000 UNIT/ML VIAL SQ SCH (05:41)
[2018-06-23 07:06] VITALS: BP 137/94
[2018-06-23] MEDS: Budesonide/Formoterol 160/4.5 1 PUFF INH IH SCH (07:23)
[2018-06-23] MEDS: Nicotine 21 MG PATCH.TD24 TD SCH (08:36)
[2018-06-23] MEDS: Cholecalciferol (D-3) 1,000 UNIT TABLET PO SCH (08:37)
[2018-06-23] MEDS: hydroCHLOROthiazide 25 MG TABLET PO SCH (08:37)
[2018-06-23] MEDS: Aspirin Enteric Coated 81 MG Tablet PO SCH (08:37)
[2018-06-23] MEDS: risperiDONE 1 MG TABLET PO SCH (08:37)
[2018-06-23] MEDS: Metoprolol XL (24 HR) Succ 50 MG TAB.ER.24H PO SCH (08:37)
[2018-06-23] MEDS: Diltiazem CD (24hr) 120 MG CAPSULE PO SCH (08:38)
[2018-06-23] MEDS: Thiamine (B-1) 100 MG TABLET PO SCH (11:49)
[2018-06-23] MEDS: Acetaminophen 325 MG TABLET PO PRN (11:53)
--- NOTE | 2018-06-23 14:46 | Internal Med Progress Note ---
Hospitalist Progress Note - Encounter Date of Encounter: 06/23/18 Time of Encounter: 14:43 - Subjective Interval History: Patient seen and examined at bedside. Patient states that he feels good today. He states he is ready to go home. He denies any shortness of breath, cough, suicidal, homicidal ideation. - Exam Vitals: Temp Pulse Resp BP Pulse Ox 97.7 F 97 18 137/94 96 06/23/18 07:02 06/23/18 07:02 06/23/18 11:03 06/23/18 07:02 06/23/18 11:03 Exam: Gen.: Alert and oriented 3, no acute distress Lungs: Clear to auscultation bilaterally, no rales, rhonchi, wheezes Psych: No suicidal or homicidal ideations, no hallucinations present. Rambling speech. No acute psychosis appreciated. - Assessment and Plan (1) Paranoid schizophrenia, chronic condition Current Visit: Yes Status: Chronic Assessment and Plan: Patient was initially admitted from the [facility]. Plans were for patient to return to this unit. I spoke with the psychiatrist at the [facility] today in they state that patient was about to be discharged home from there unit when he was transferred to our facility. They state that he was stable on risperidone 2 mg twice a day and this is what they would recommend he be continued on. They did state that if he did not have any suicidal or homicidal ideation and there is no acute psychosis present then he could be discharged home with outpatient follow-up. I do not appreciate any suicidal or homicidal ideation or acute psychosis. Therefore, we will discharge patient home with risperidone 2 mg by mouth twice a day. The [facility] is currently arranging a close outpatient follow-up for the patient and we will have this before he leaves our facility today. (2) Acute exacerbation of chronic obstructive airways disease Current Visit: Yes Status: Acute Assessment and Plan: We will discharge him to complete prednisone taper and Augmentin, please see yesterday's discharge summary for complete discharge information. (3) HTN (hypertension) Current Visit: No Status: Chronic (4) Tobacco abuse Current Visit: Yes Status: Chronic (5) Acute and chronic respiratory failure with hypoxia Current Visit: Yes Status: Acute (6) Sinus tachycardia Current Visit: Yes Status: Chronic (7) Pneumonia Current Visit: Yes Status: Acute (8) Atrial fibrillation with RVR Current Visit: Yes Status: Resolved - Time Spent with Patient Total time spent is greater than 50% in coordination of care (as documented) at patient's floor/unit and/or counseling patient: Internal Medicine: Result - Labs CBC & Chem 7: 06/22/18 06:46 06/22/18 06:46 - ABG Interpretation ABG results: ABG ABG pH 7.44 pH Units (7.32-7.45) 06/20/18 08:31 ABG pCO2 64 mmHg (35-45) H 06/20/18 08:31 ABG pO2 84 mmHg (85-104) L 06/20/18 08:31 ABG O2 Saturation 96 % (95-98) 06/20/18 08:31 PT/INR, D-dimer PT 10.7 Seconds (9.4-12.1) 06/17/18 09:55 - VTE Documentation of Mechanical Device: Graduated compression elastic hosiery Consult Discharge Plan - Plan Additional Instructions: Please follow-up with your PCP within one week. Please take her antibiotic to completed. Please take your prednisone with tapering dose as directed. Please resume your home medications. Please work with the [facility] facility. Please return for any new or worsening symptoms. Referrals: [facility] [Primary Care Provider] - Prescriptions: Amoxicillin/Clavulanate [Augmentin] 875 mg PO BIDWM #3 tablet predniSONE [PredniSONE] See Taper PO DAILY #30 tablet risperiDONE [Risperidone Odt] 2 mg PO BID #28 tab.rapdis (3) HTN (hypertension) Qualifiers: Hypertension type: essential hypertension Qualified Code(s): I10 - Essential (primary) hypertension (7) Pneumonia Qualifiers: Pneumonia type: due to unspecified organism Laterality: bilateral Lung location: unspecified part of lung Qualified Code(s): J18.9 - Pneumonia, un specified organism
== END 2018-06-23 18:20 | DRG 871 ==
LOC: EMEROOARM 06:50 → 2NENU 06:50 → SUATTDRO 10:59 → 2NENU 11:00
PROVIDERS: ADMIT Internal Medicine; ATTEND Internal Medicine

== ENCOUNTER 2019-09-03 03:06 | Observation (INO) ==
[2019-09-03 03:40] LABS: Basophils % 0.2 %; Eosinophils # 0.1 K/mcL (0.0-0.6); Eosinophils % 0.9 %; Hematocrit 43.4 % (37.5-50.1); Hemoglobin 14.9 g/dL (12.9-16.9); Immature Granulocytes % 0.5 % (0-4); Lymphocytes # 2.3 K/mcL (0.6-4.6); Lymphocytes % 15.7 %; Mean Corpuscular HGB Conc 34.3 g/dL (31.6-35.5); Mean Corpuscular Hemoglobin 31.6 pg (28.0-33.3); Mean Corpuscular Volume 91.9 fL (83.0-100.0); Mean Platelet Volume 10.4 fL (9.4-12.4); Monocytes # 1.3 K/mcL (0.0-1.3); Monocytes % 8.5 %; Neutrophils # 10.9 K/mcL (1.6-8.9); Platelet Count 282 K/mcL (140-400); Red Blood Count 4.72 M/mcL (4.19-5.50); Red Cell Distribution Width 12.3 % (11.5-14.5); Segmented Neutrophils % 74.2 %; White Blood Count 14.8 K/mcL (4.3-11.1)
[2019-09-03] MEDS ORDERED: Ipratropium/Albuterol Neb 3 ML IH ONE (03:49)
[2019-09-03] MEDS ORDERED: predniSONE 20 MG TABLET PO ONE (03:50)
[2019-09-03 03:58] LABS: BUN/Creatinine Ratio 14 (6-26); Blood Urea Nitrogen 10 mg/dL (6-20); Calcium 8.9 mg/dL (8.6-10.3); Carbon Dioxide 26 mEq/L (23-29); Chloride 93 mEq/L (98-107); Glucose 126 mg/dL (70-105); Osmolality,Calculated 277 (280-300); Sodium 133 mEq/L (136-145); eGFR For African Americans > 60 (> 60); eGFR For Non-African Americans > 60 (> 60)
[2019-09-03 03:59] LABS: Troponin I < 0.03 ng/mL (< 0.04)
[2019-09-03] MEDS ORDERED: Potassium Effervescent 25 MEQ TABLET.EFF PO ONE (04:44)
[2019-09-03] MEDS ORDERED: Azithromycin 500 MG in D5% in Water 250 ML IVPB ONE (04:49)
[2019-09-03] MEDS ORDERED: 0.9 % Sodium Chloride 1,000 ML IVC STA (04:49)
[2019-09-03] MEDS ORDERED: Ondansetron 4 MG/2 ML VIAL IVP PRN (06:29)
[2019-09-03] MEDS ORDERED: Naloxone 0.4 MG/ML INJ IVP PRN (06:29)
[2019-09-03] MEDS ORDERED: Haloperidol Lactate 5 MG/ML VIAL IVP PRN (08:04)
[2019-09-03] MEDS ORDERED: Mag Hydrox/Al Hydrox/Simeth 30 ML UDC PO PRN (08:16)
[2019-09-03] MEDS ORDERED: *HR* HYDROcodone/Acet 5/325 mg TABLET PO PRN (08:16)
[2019-09-03] MEDS ORDERED: MOM Conc 10 ML UD.LIQ PO PRN (08:16)
[2019-09-03] MEDS ORDERED: *HR* Promethazine 25 MG/ML VIAL IVP PRN (08:16)
[2019-09-03] MEDS ORDERED: Acetaminophen 325 MG TABLET PO PRN (08:16)
[2019-09-03] MEDS ORDERED: Ipratropium/Albuterol Neb 3 ML IH PRN (08:18)
[2019-09-03] MEDS: predniSONE 20 MG TABLET PO SCH (08:35)
[2019-09-03] MEDS: DilTIAZem CD (24hr) 120 MG CAP.ER.24H PO SCH (08:35)
[2019-09-03] MEDS: Nicotine 21 MG PATCH.TD24 TD SCH (08:35)
[2019-09-03] MEDS: risperiDONE 1 MG TABLET PO SCH ×2 (08:35→20:48)
[2019-09-03] MEDS: Ipratropium/Albuterol Neb 3 ML IH SCH ×3 (09:58→21:43)
[2019-09-03] MEDS: Budesonide/Formoterol 160/4.5 1 PUFF INH IH SCH ×2 (09:59→21:43)
[2019-09-03] MEDS: Metoprolol XL (24 HR) Succ 50 MG TAB.ER.24H PO SCH ×2 (11:11→20:48)
[2019-09-04 03:04] LABS: Basophils % 0.1 %; Hematocrit 36.8 % (37.5-50.1); Immature Granulocytes % 0.7 % (0-4); Lymphocytes # 0.9 K/mcL (0.6-4.6); Lymphocytes % 7.5 %; Mean Corpuscular HGB Conc 33.2 g/dL (31.6-35.5); Mean Corpuscular Hemoglobin 31.3 pg (28.0-33.3); Mean Corpuscular Volume 94.4 fL (83.0-100.0); Mean Platelet Volume 10.6 fL (9.4-12.4); Monocytes % 7.8 %; Neutrophils # 10.5 K/mcL (1.6-8.9); Platelet Count 222 K/mcL (140-400); Red Cell Distribution Width 12.5 % (11.5-14.5); Segmented Neutrophils % 83.9 %; White Blood Count 12.5 K/mcL (4.3-11.1)
[2019-09-04 03:12] LABS: Hemoglobin 12.2 g/dL (12.9-16.9)
[2019-09-04 03:46] LABS: BUN/Creatinine Ratio 16 (6-26); Blood Urea Nitrogen 10 mg/dL (6-20); Calcium 8.9 mg/dL (8.6-10.3); Carbon Dioxide 30 mEq/L (23-29); Chloride 99 mEq/L (98-107); Glucose 156 mg/dL (70-105); Osmolality,Calculated 286 (280-300); Phosphorous 3.8 mg/dL (2.7-4.5); Sodium 137 mEq/L (136-145); eGFR For African Americans > 60 (> 60); eGFR For Non-African Americans > 60 (> 60)
[2019-09-04] MEDS: Ipratropium/Albuterol Neb 3 ML IH SCH ×2 (03:46→10:47)
[2019-09-04] MEDS ORDERED: Azithromycin 500 MG in 0.9 % Sodium Chloride 250 ML IVPB SCH (05:00)
[2019-09-04 07:07] VITALS: BP 106/65
[2019-09-04] MEDS: DilTIAZem CD (24hr) 120 MG CAP.ER.24H PO SCH (10:04)
[2019-09-04] MEDS: Nicotine 21 MG PATCH.TD24 TD SCH (10:04)
[2019-09-04] MEDS: predniSONE 20 MG TABLET PO SCH (10:05)
[2019-09-04] MEDS: risperiDONE 1 MG TABLET PO SCH (10:05)
[2019-09-04] MEDS: Metoprolol XL (24 HR) Succ 50 MG TAB.ER.24H PO SCH (10:05)
[2019-09-04] MEDS: Budesonide/Formoterol 160/4.5 1 PUFF INH IH SCH (10:47)
== END 2019-09-04 14:03 | disposition home or self-care (01) ==
LOC: EMEROOARM 03:06 → 3BNU 03:06
PROVIDERS: ADMIT Internal Medicine; ATTEND Internal Medicine

== ENCOUNTER 2020-12-24 22:27 | Inpatient (IN) ==
[2020-12-24] MEDS ORDERED: methylPREDNISolone 125 MG/2 ML VIAL ONE (22:31)
[2020-12-24] MEDS ORDERED: Ipratropium/Albuterol Neb 3 ML ONE (22:32)
[2020-12-24] MEDS ORDERED: methylPREDNISolone 125 MG/2 ML VIAL IVP ONE (22:36)
[2020-12-24] MEDS ORDERED: Ipratropium/Albuterol Neb 3 ML IH ONE (22:36)
[2020-12-24 22:59] LABS: Basophils % 0.2 %; Eosinophils # 0.1 K/mcL (0.0-0.6); Eosinophils % 0.4 %; Hematocrit 46.1 % (37.5-50.1); Hemoglobin 15.6 g/dL (12.9-16.9); Immature Granulocytes % 0.5 % (0-4); Lymphocytes # 2.2 K/mcL (0.6-4.6); Lymphocytes % 13.2 %; Mean Corpuscular HGB Conc 33.8 g/dL (31.6-35.5); Mean Corpuscular Hemoglobin 30.9 pg (28.0-33.3); Mean Corpuscular Volume 91.3 fL (83.0-100.0); Mean Platelet Volume 10.3 fL (9.4-12.4); Monocytes # 1.3 K/mcL (0.0-1.3); Monocytes % 8.1 %; Neutrophils # 12.7 K/mcL (1.6-8.9); Platelet Count 296 K/mcL (140-400); Red Blood Count 5.05 M/mcL (4.19-5.50); Red Cell Distribution Width 12.5 % (11.5-14.5); Segmented Neutrophils % 77.6 %; White Blood Count 16.4 K/mcL (4.3-11.1)
[2020-12-24 23:01] LABS: ABG Base Excess 3 mEq/L (-2 to 3); ABG HCO3 34 mEq/L (21-27); ABG Oxygen Saturation 99 % (95-98); ABG PCO2 84 mmHg (35-45); ABG PH 7.22 pH Units (7.32-7.45); ABG PO2 163 mmHg (85-104); ABG TCO2 37 mEq/L (20-26); Blood Gas Modality NIV; Blood Gas VT 500 cc
[2020-12-24] MEDS ORDERED: cefTRIAXone 1,000 MG in 0.9 % Sodium Chloride Mini Bag 100 ML IVPB ONE (23:18)
[2020-12-24] MEDS ORDERED: Azithromycin 250 MG TABLET PO ONE (23:18)
[2020-12-24 23:31] LABS: Troponin I < 0.03 ng/mL (< 0.04)
[2020-12-24 23:45] LABS: Alanine Aminotransferase 8 Units/L (7-52); Albumin 4.2 g/dL (3.5-5.7); Albumin/Globulin Ratio 1.3 (1.1-2.2); Alkaline Phosphatase 75 Units/L (34-104); Aspartate Amino Transferase 19 Units/L (13-39); BUN/Creatinine Ratio 21 (6-26); Bilirubin,Direct 0.1 mg/dL (0.0-0.2); Bilirubin,Indirect 0.4 mg/dL (0.0-1.0); Bilirubin,Total 0.5 mg/dL (0.3-1.0); Blood Urea Nitrogen 13 mg/dL (8-23); Calcium 8.7 mg/dL (8.6-10.3); Carbon Dioxide 24 mEq/L (23-29); Chloride 98 mEq/L (98-107); Globulin 3.3 g/dL (2.4-3.5); Glucose 142 mg/dL (70-105); Osmolality,Calculated 279 (280-300); Potassium 4.1 mEq/L (3.5-5.1); Sodium 133 mEq/L (136-145); Total Protein 7.5 g/dL (6.4-8.9); eGFR For African Americans > 60 (> 60); eGFR For Non-African Americans > 60 (> 60)
[2020-12-25 00:13] LABS: ABG Base Excess 2 mEq/L (-2 to 3); ABG HCO3 33 mEq/L (21-27); ABG Oxygen Saturation 94 % (95-98); ABG PCO2 78 mmHg (35-45); ABG PH 7.23 pH Units (7.32-7.45); ABG PO2 88 mmHg (85-104); ABG TCO2 35 mEq/L (20-26); Blood Gas Modality NIV; Blood Gas VT 500 cc
[2020-12-25] MEDS ORDERED: *HR* HYDROcodone/Acet 5/325 mg TABLET PO PRN (00:29)
[2020-12-25] MEDS ORDERED: Naloxone 0.4 MG/ML INJ IVP PRN (00:29)
[2020-12-25] MEDS ORDERED: *HR* Promethazine 25 MG/ML VIAL IM PRN (00:29)
[2020-12-25] MEDS ORDERED: Melatonin 3 MG TABLET PO PRN (00:29)
[2020-12-25 01:35] LABS: Adenovirus Not Detected (Not Detect); Bordetella Pertussis Not Detected (Not Detect); Chlamydophila pneumoniae Not Detected (Not Detect); Coronavirus 229E Not Detected (Not Detect); Coronavirus HKU1 Not Detected (Not Detect); Coronavirus NL63 Not Detected (Not Detect); Coronavirus OC43 Not Detected (Not Detect); Human Metapneumovirus Not Detected (Not Detect); Human Rhinovirus/Enterovirus DETECTED (Not Detect); Influenza A Subtype 2009 H1 Not Detected (Not Detect); Influenza B Not Detected (Not Detect); Mycoplasma pneumoniae Not Detected (Not Detect); Parainfluenza Virus 1 Not Detected (Not Detect); Parainfluenza Virus 2 Not Detected (Not Detect); Parainfluenza Virus 3 Not Detected (Not Detect); Parainfluenza Virus 4 Not Detected (Not Detect); Respiratory Syncytial Virus Not Detected (Not Detect); SARS-CoV-2 Not Detected (Not Detect)
[2020-12-25] MEDS ORDERED: Isovue-370 500 ML BOTTLE IVP ONE (02:30)
[2020-12-25] MEDS ORDERED: D5% in Water 1,000 ML IVC PRN (02:33)
[2020-12-25] MEDS ORDERED: Dextrose Gel 15 GM/37.5 ML TUBE PO PRN ×2 (02:33)
[2020-12-25] MEDS ORDERED: *HR* Dextrose 50 % in Water (Syg) 50 ML SYRINGE IVP PRN (02:33)
[2020-12-25] MEDS ORDERED: Saliva Stimulant 44.3ml BOTTLE PO PRN (02:34)
[2020-12-25] MEDS ORDERED: Saline Nasal Spray 44 ML BOTTLE NS PRN (02:34)
[2020-12-25 02:56] LABS: Basophils % 0.2 %; Eosinophils % 0.1 %; Hematocrit 46.7 % (37.5-50.1); Hemoglobin 15.6 g/dL (12.9-16.9); Immature Granulocytes % 0.3 % (0-4); Lymphocytes # 0.5 K/mcL (0.6-4.6); Lymphocytes % 4.7 %; Mean Corpuscular HGB Conc 33.4 g/dL (31.6-35.5); Mean Corpuscular Hemoglobin 30.7 pg (28.0-33.3); Mean Corpuscular Volume 91.9 fL (83.0-100.0); Mean Platelet Volume 10.5 fL (9.4-12.4); Monocytes # 0.1 K/mcL (0.0-1.3); Monocytes % 0.9 %; Neutrophils # 10.9 K/mcL (1.6-8.9); Platelet Count 271 K/mcL (140-400); Red Blood Count 5.08 M/mcL (4.19-5.50); Red Cell Distribution Width 12.6 % (11.5-14.5); Segmented Neutrophils % 93.8 %; White Blood Count 11.6 K/mcL (4.3-11.1)
[2020-12-25] MEDS ORDERED: Ipratropium/Albuterol Neb 3 ML IH SCH (03:00)
[2020-12-25 03:08] LABS: Alanine Aminotransferase 9 Units/L (7-52); Albumin 4.1 g/dL (3.5-5.7); Albumin/Globulin Ratio 1.3 (1.1-2.2); Alkaline Phosphatase 73 Units/L (34-104); Aspartate Amino Transferase 17 Units/L (13-39); BUN/Creatinine Ratio 21 (6-26); Bilirubin,Total 0.4 mg/dL (0.3-1.0); Blood Urea Nitrogen 15 mg/dL (8-23); Calcium 8.9 mg/dL (8.6-10.3); Carbon Dioxide 29 mEq/L (23-29); Chloride 96 mEq/L (98-107); Globulin 3.2 g/dL (2.4-3.5); Glucose 120 mg/dL (70-105); INR 1.2; Magnesium 1.9 mg/dL (1.6-2.6); Osmolality,Calculated 282 (280-300); Potassium 4.5 mEq/L (3.5-5.1); Prothrombin Time 13.1 Seconds (9.4-12.1); Sodium 135 mEq/L (136-145); Total Protein 7.3 g/dL (6.4-8.9); eGFR For African Americans > 60 (> 60); eGFR For Non-African Americans > 60 (> 60)
[2020-12-25] MEDS ORDERED: 0.9 % Sodium Chloride 1,000 ML IVC ONE (04:07)
[2020-12-25] MEDS: Ipratropium 1 PUFF INHALER IH SCH ×3 (04:43→11:43)
[2020-12-25] MEDS: methylPREDNISolone 125 MG/2 ML VIAL IVP SCH ×3 (05:05→20:47)
[2020-12-25 07:19] LABS: VBG HCO3 32 mEq/L (21-27); VBG PCO2 85 mmHg (41-51); VBG PH 7.18 pH Units (7.32-7.42); VBG PO2 54 mmHg (25-50)
[2020-12-25] MEDS: Budesonide/Formoterol 160/4.5 1 PUFF INH IH SCH ×2 (07:29→20:18)
[2020-12-25] MEDS: Artificial Tears SOLN 15 ML BOTTLE BOTH EYES SCH ×4 (08:18→20:52)
[2020-12-25] MEDS: Chlorhexidine Rinse 15 ML MOUTHWASH MM SCH ×2 (08:18→20:52)
[2020-12-25] MEDS: Pantoprazole 40 MG VIAL IVP SCH (08:19)
[2020-12-25] MEDS: Nicotine 21 MG PATCH.TD24 TD SCH (08:19)
[2020-12-25 08:47] LABS: Acetaminophen < 10 mcg/mL (10-20); Ethanol < 10 mg/dL (Less than 10); Salicylate < 2.5 mg/dL (15.0-30.0)
[2020-12-25] MEDS ORDERED: *HR* LORazepam 2 MG/ML VIAL IVP PRN (08:59)
[2020-12-25] MEDS ORDERED: *HR* Enoxaparin 40 MG/0.4 ML SYRINGE SQ SCH (09:00)
[2020-12-25] MEDS ORDERED: Lactulose Oral Soln 20 GM/30 ML UDC PO ONE (09:00)
[2020-12-25] MEDS ORDERED: *HR* LORazepam 2 MG/ML VIAL IVP ONE (14:17)
[2020-12-25] MEDS ORDERED: Dexmedetomidine HCl 400 MCG/100 ML MLS IVC SCH (15:00)
[2020-12-25] MEDS: Ipratropium/Albuterol Neb 3 ML IH SCH ×3 (15:58→23:02)
[2020-12-25 21:05] LABS: ABG Base Excess 2 mEq/L (-2 to 3); ABG HCO3 32 mEq/L (21-27); ABG Oxygen Saturation 92 % (95-98); ABG PCO2 75 mmHg (35-45); ABG PH 7.25 pH Units (7.32-7.45); ABG PO2 78 mmHg (85-104); ABG TCO2 35 mEq/L (20-26)
[2020-12-26] MEDS: Acetaminophen 325 MG TABLET PO PRN ×2 (00:27→15:29)
[2020-12-26] MEDS: Ipratropium/Albuterol Neb 3 ML IH SCH ×6 (03:18→23:28)
[2020-12-26 03:25] LABS: ABG Base Excess 4 mEq/L (-2 to 3); ABG HCO3 35 mEq/L (21-27); ABG Oxygen Saturation 96 % (95-98); ABG PCO2 85 mmHg (35-45); ABG PH 7.22 pH Units (7.32-7.45); ABG PO2 104 mmHg (85-104); ABG TCO2 37 mEq/L (20-26); Blood Gas Modality AVAPS; Blood Gas VT 480 cc
[2020-12-26] MEDS ORDERED: methylPREDNISolone 125 MG/2 ML VIAL IVP SCH (04:00)
[2020-12-26] MEDS: *HR* Enoxaparin 40 MG/0.4 ML SYRINGE SQ SCH (05:38)
[2020-12-26 06:04] LABS: ABG Base Excess 5 mEq/L (-2 to 3); ABG HCO3 35 mEq/L (21-27); ABG Oxygen Saturation 96 % (95-98); ABG PCO2 71 mmHg (35-45); ABG PO2 93 mmHg (85-104); ABG TCO2 37 mEq/L (20-26); Blood Gas Modality AVAPS; Blood Gas VT 500 cc
[2020-12-26] MEDS: Budesonide/Formoterol 160/4.5 1 PUFF INH IH SCH ×2 (07:38→20:04)
[2020-12-26] MEDS ORDERED: Azithromycin 500 MG in 0.9 % Sodium Chloride 250 ML IVPB SCH (08:00)
[2020-12-26] MEDS ORDERED: cefTRIAXone 1,000 MG in Water for inj. (sterile) 10 ML IVP SCH (08:00)
[2020-12-26] MEDS: Chlorhexidine Rinse 15 ML MOUTHWASH MM SCH (08:26)
[2020-12-26] MEDS: Nicotine 21 MG PATCH.TD24 TD SCH (08:26)
[2020-12-26] MEDS: Pantoprazole 40 MG VIAL IVP SCH (08:26)
[2020-12-26] MEDS: Artificial Tears SOLN 15 ML BOTTLE BOTH EYES SCH ×4 (08:27→20:25)
[2020-12-26] MEDS: methylPREDNISolone 125 MG/2 ML VIAL IVP SCH ×3 (08:32→23:39)
[2020-12-26] MEDS: Metoprolol XL (24 HR) Succ 50 MG TAB.ER.24H PO SCH ×2 (11:49→20:24)
[2020-12-26] MEDS ORDERED: *HR* Metoprolol 5 MG/5 ML VIAL IVP STA (12:26)
[2020-12-26] MEDS: BuPROPion SR (12 HR) 150 MG TABLET PO SCH (20:25)
[2020-12-27] MEDS: Acetaminophen 325 MG TABLET PO PRN (00:19)
[2020-12-27] MEDS: Ipratropium/Albuterol Neb 3 ML IH SCH ×6 (04:11→23:00)
[2020-12-27 04:56] LABS: Basophils % 0.1 %; Hematocrit 41.7 % (37.5-50.1); Immature Granulocytes % 0.8 % (0-4); Lymphocytes # 0.5 K/mcL (0.6-4.6); Lymphocytes % 2.8 %; Mean Corpuscular HGB Conc 33.6 g/dL (31.6-35.5); Mean Corpuscular Hemoglobin 31.5 pg (28.0-33.3); Mean Corpuscular Volume 93.7 fL (83.0-100.0); Mean Platelet Volume 11.1 fL (9.4-12.4); Monocytes # 0.5 K/mcL (0.0-1.3); Monocytes % 2.8 %; Neutrophils # 17.9 K/mcL (1.6-8.9); Platelet Count 268 K/mcL (140-400); Red Blood Count 4.45 M/mcL (4.19-5.50); Red Cell Distribution Width 12.7 % (11.5-14.5); Segmented Neutrophils % 93.5 %
[2020-12-27 04:58] LABS: White Blood Count 19.1 K/mcL (4.3-11.1)
[2020-12-27] MEDS: *HR* Enoxaparin 40 MG/0.4 ML SYRINGE SQ SCH (05:40)
[2020-12-27 05:45] LABS: BUN/Creatinine Ratio 31 (6-26); Blood Urea Nitrogen 27 mg/dL (8-23); Calcium 9.2 mg/dL (8.6-10.3); Carbon Dioxide 30 mEq/L (23-29); Chloride 98 mEq/L (98-107); Glucose 159 mg/dL (70-105); Osmolality,Calculated 292 (280-300); Potassium 4.5 mEq/L (3.5-5.1); Sodium 137 mEq/L (136-145); eGFR For African Americans > 60 (> 60); eGFR For Non-African Americans > 60 (> 60)
[2020-12-27] MEDS: Budesonide/Formoterol 160/4.5 1 PUFF INH IH SCH ×2 (07:55→20:09)
[2020-12-27] MEDS: Metoprolol XL (24 HR) Succ 50 MG TAB.ER.24H PO SCH (09:51)
[2020-12-27] MEDS: BuPROPion SR (12 HR) 150 MG TABLET PO SCH (09:51)
[2020-12-27] MEDS: Nicotine 21 MG PATCH.TD24 TD SCH (09:52)
[2020-12-27] MEDS: methylPREDNISolone 125 MG/2 ML VIAL IVP SCH (09:53)
[2020-12-27] MEDS: Artificial Tears SOLN 15 ML BOTTLE BOTH EYES SCH ×4 (09:54→21:34)
[2020-12-27] MEDS ORDERED: Naloxone 0.4 MG/ML INJ IVP PRN (15:34)
[2020-12-27] MEDS ORDERED: Saline Nasal Spray 44 ML BOTTLE NS PRN (15:34)
[2020-12-27] MEDS ORDERED: Melatonin 3 MG TABLET PO PRN (15:34)
[2020-12-27] MEDS ORDERED: Saliva Stimulant 44.3ml BOTTLE PO PRN (15:34)
[2020-12-27] MEDS ORDERED: Dextrose Gel 15 GM/37.5 ML TUBE PO PRN ×2 (15:34)
[2020-12-27] MEDS ORDERED: *HR* Promethazine 25 MG/ML VIAL IM PRN (15:34)
[2020-12-27] MEDS ORDERED: D5% in Water 1,000 ML IVC PRN (15:34)
[2020-12-27] MEDS ORDERED: *HR* Dextrose 50 % in Water (Syg) 50 ML SYRINGE IVP PRN (15:34)
[2020-12-27 16:15] LABS: ABG Base Excess 9 mEq/L (-2 to 3); ABG HCO3 37 mEq/L (21-27); ABG Oxygen Saturation 95 % (95-98); ABG PCO2 67 mmHg (35-45); ABG PH 7.35 pH Units (7.32-7.45); ABG PO2 80 mmHg (85-104); ABG TCO2 39 mEq/L (20-26)
[2020-12-27] MEDS ORDERED: Metoprolol XL (24 HR) Succ 50 MG TAB.ER.24H PO SCH (21:00)
[2020-12-28] MEDS: Acetaminophen 325 MG TABLET PO PRN ×2 (01:46→08:08)
[2020-12-28 03:40] LABS: Basophils % 0.1 %; Hematocrit 42.7 % (37.5-50.1); Hemoglobin 14.2 g/dL (12.9-16.9); Immature Granulocytes % 0.8 % (0-4); Lymphocytes # 1.8 K/mcL (0.6-4.6); Lymphocytes % 12.5 %; Mean Corpuscular HGB Conc 33.3 g/dL (31.6-35.5); Mean Corpuscular Hemoglobin 31.5 pg (28.0-33.3); Mean Corpuscular Volume 94.7 fL (83.0-100.0); Mean Platelet Volume 11.2 fL (9.4-12.4); Monocytes # 1.3 K/mcL (0.0-1.3); Monocytes % 8.6 %; Neutrophils # 11.4 K/mcL (1.6-8.9); Platelet Count 271 K/mcL (140-400); Red Blood Count 4.51 M/mcL (4.19-5.50); Red Cell Distribution Width 12.8 % (11.5-14.5); White Blood Count 14.7 K/mcL (4.3-11.1)
[2020-12-28] MEDS: Ipratropium/Albuterol Neb 3 ML IH SCH ×2 (03:43→07:36)
[2020-12-28 04:06] LABS: BUN/Creatinine Ratio 29 (6-26); Blood Urea Nitrogen 25 mg/dL (8-23); Calcium 9.4 mg/dL (8.6-10.3); Carbon Dioxide 40 mEq/L (23-29); Chloride 96 mEq/L (98-107); Glucose 98 mg/dL (70-105); Osmolality,Calculated 296 (280-300); Potassium 4.2 mEq/L (3.5-5.1); Sodium 141 mEq/L (136-145); eGFR For African Americans > 60 (> 60); eGFR For Non-African Americans > 60 (> 60)
[2020-12-28] MEDS ORDERED: *HR* Enoxaparin 40 MG/0.4 ML SYRINGE SQ SCH (06:00)
[2020-12-28 06:38] VITALS: BP 146/91; PULSE 90; TEMP 97.6
[2020-12-28] MEDS: Budesonide/Formoterol 160/4.5 1 PUFF INH IH SCH (07:36)
[2020-12-28] MEDS: Artificial Tears SOLN 15 ML BOTTLE BOTH EYES SCH (08:03)
[2020-12-28 08:38] VITALS: O2SAT 96
[2020-12-28] MEDS ORDERED: Nicotine 21 MG PATCH.TD24 TD SCH (09:00)
[2020-12-28] MEDS ORDERED: Metoprolol XL (24 HR) Succ 50 MG TAB.ER.24H PO ONE (09:56)
[2020-12-28] MEDS ORDERED: predniSONE 20 MG TABLET PO ONE (10:21)
[2020-12-28] MEDS ORDERED: Saliva Stimulant 44.3ml BOTTLE PO ONE (10:23)
[2020-12-28] MEDS ORDERED: methylPREDNISolone 125 MG/2 ML VIAL IVP ONE (10:23)
== END 2020-12-28 10:58 | disposition home or self-care (01) | DRG 871 ==
LOC: EMEROOARM 22:27 → 2ANU 22:27 → SUATTDRO 12-25 00:22 → OBSVTOIN 12-25 00:22 → 2ANU 12-25 01:22
PROVIDERS: ADMIT Family Medicine; ATTEND Student in an Organized Health Care Education/Training Program

== ENCOUNTER 2021-03-23 20:44 | Inpatient (IN) ==
[2021-03-23] MEDS ORDERED: Ipratropium/Albuterol Neb 3 ML IH ONE (20:54)
[2021-03-23] MEDS ORDERED: methylPREDNISolone 125 MG/2 ML VIAL IVP ONE (20:55)
[2021-03-23] MEDS ORDERED: Ipratropium/Albuterol Neb 3 ML ONE (20:56)
[2021-03-23 21:34] LABS: ABG Base Excess -2 mEq/L (-2 to 3); ABG HCO3 30 mEq/L (21-27); ABG Oxygen Saturation 95 % (95-98); ABG PCO2 82 mmHg (35-45); ABG PH 7.16 pH Units (7.32-7.45); ABG PO2 101 mmHg (85-104); ABG TCO2 32 mEq/L (20-26); Blood Gas Modality BiLevel
[2021-03-23] MEDS ORDERED: Albuterol 2.5 MG/3 ML NEBULIZER IH ONE (21:45)
[2021-03-23 21:47] LABS: ABG Base Excess -3 mEq/L (-2 to 3); ABG HCO3 29 mEq/L (21-27); ABG Oxygen Saturation 95 % (95-98); ABG PCO2 80 mmHg (35-45); ABG PH 7.17 pH Units (7.32-7.45); ABG PO2 98 mmHg (85-104); ABG TCO2 31 mEq/L (20-26); Blood Gas Modality BiLevel; Blood Gas Pressure Support 6 cm H2O
[2021-03-23 22:04] LABS: Basophils % 0.1 %; Eosinophils % 0.1 %; Hematocrit 49.8 % (37.5-50.1); Hemoglobin 16.3 g/dL (12.9-16.9); Immature Granulocytes % 0.6 % (0-4); Lymphocytes # 0.6 K/mcL (0.6-4.6); Lymphocytes % 3.4 %; Mean Corpuscular HGB Conc 32.7 g/dL (31.6-35.5); Mean Corpuscular Hemoglobin 31.6 pg (28.0-33.3); Mean Corpuscular Volume 96.5 fL (83.0-100.0); Mean Platelet Volume 10.2 fL (9.4-12.4); Monocytes # 0.8 K/mcL (0.0-1.3); Monocytes % 4.7 %; Neutrophils # 16.2 K/mcL (1.6-8.9); Platelet Count 450 K/mcL (140-400); Red Blood Count 5.16 M/mcL (4.19-5.50); Red Cell Distribution Width 12.8 % (11.5-14.5); Segmented Neutrophils % 91.1 %; White Blood Count 17.8 K/mcL (4.3-11.1)
[2021-03-23 22:36] LABS: VBG HCO3 28 mEq/L (21-27); VBG PCO2 74 mmHg (41-51); VBG PH 7.19 pH Units (7.32-7.42); VBG PO2 71 mmHg (25-50)
[2021-03-23 22:38] LABS: Alanine Aminotransferase 21 Units/L (7-52); Albumin/Globulin Ratio 1.3 (1.1-2.2); Alkaline Phosphatase 70 Units/L (34-104); Aspartate Amino Transferase 36 Units/L (13-39); Bilirubin,Direct 0.1 mg/dL (0.0-0.2); Bilirubin,Indirect 0.3 mg/dL (0.0-1.0); Bilirubin,Total 0.4 mg/dL (0.3-1.0); Blood Urea Nitrogen 20 mg/dL (8-23); Calcium 9.2 mg/dL (8.6-10.3); Carbon Dioxide 25 mEq/L (23-29); Chloride 100 mEq/L (98-107); Globulin 3.1 g/dL (2.4-3.5); Glucose 112 mg/dL (70-105); Osmolality,Calculated 291 (280-300); Potassium 6.6 mEq/L (3.5-5.1); Sodium 139 mEq/L (136-145); Total Protein 7.1 g/dL (6.4-8.9)
[2021-03-23] MEDS ORDERED: Insulin Human Regular 10 UNIT in 0.9 % Sodium Chloride 10 ML IV ONE (22:38)
[2021-03-23] MEDS ORDERED: *HR* Dextrose 50 % in Water (Syg) 50 ML SYRINGE IVP ONE (22:38)
[2021-03-23] MEDS ORDERED: 0.9 % Sodium Chloride 1,000 ML IVC ONE (22:38)
[2021-03-23 22:44] LABS: Adenovirus Not Detected (Not Detect); Bordetella Pertussis Not Detected (Not Detect); Chlamydophila pneumoniae Not Detected (Not Detect); Coronavirus 229E Not Detected (Not Detect); Coronavirus HKU1 Not Detected (Not Detect); Coronavirus NL63 Not Detected (Not Detect); Coronavirus OC43 Not Detected (Not Detect); Human Metapneumovirus Not Detected (Not Detect); Human Rhinovirus/Enterovirus Not Detected (Not Detect); Influenza A Subtype 2009 H1 Not Detected (Not Detect); Influenza B Not Detected (Not Detect); Mycoplasma pneumoniae Not Detected (Not Detect); Parainfluenza Virus 1 Not Detected (Not Detect); Parainfluenza Virus 2 Not Detected (Not Detect); Parainfluenza Virus 3 Not Detected (Not Detect); Parainfluenza Virus 4 Not Detected (Not Detect); Respiratory Syncytial Virus Not Detected (Not Detect); SARS-CoV-2 Not Detected (Not Detect)
[2021-03-23 23:51] LABS: BUN/Creatinine Ratio 26 (6-26); eGFR For African Americans > 60 (> 60); eGFR For Non-African Americans > 60 (> 60)
[2021-03-23] MEDS ORDERED: Piperacillin/Tazobactam 3.375 GM in 0.9 % Sodium Chloride Mini Bag 100 ML IVPB ONE (23:57)
[2021-03-24] MEDS ORDERED: Ondansetron 4 MG/2 ML VIAL IM ONE (00:46)
[2021-03-24] MEDS ORDERED: Melatonin 3 MG TABLET PO PRN (02:40)
[2021-03-24] MEDS ORDERED: Ondansetron 4 MG/2 ML VIAL IVP PRN (02:40)
[2021-03-24] MEDS ORDERED: Naloxone 0.4 MG/ML INJ IVP PRN (02:40)
[2021-03-24] MEDS ORDERED: 0.9 % Sodium Chloride 1,000 ML IVC SCH (02:45)
[2021-03-24] MEDS ORDERED: Aspirin 325 MG TABLET PO ONE (03:10)
[2021-03-24 03:46] LABS: Hematocrit 45.9 % (37.5-50.1); Hemoglobin 15.1 g/dL (12.9-16.9); Mean Corpuscular HGB Conc 32.9 g/dL (31.6-35.5); Mean Corpuscular Hemoglobin 31.3 pg (28.0-33.3); Mean Corpuscular Volume 95.2 fL (83.0-100.0); Mean Platelet Volume 10.7 fL (9.4-12.4); Platelet Count 397 K/mcL (140-400); Red Blood Count 4.82 M/mcL (4.19-5.50); Red Cell Distribution Width 12.7 % (11.5-14.5); White Blood Count 16.6 K/mcL (4.3-11.1)
[2021-03-24 03:55] LABS: VBG HCO3 24 mEq/L (21-27); VBG PCO2 37 mmHg (41-51); VBG PH 7.43 pH Units (7.32-7.42); VBG PO2 63 mmHg (25-50)
[2021-03-24] MEDS: Ipratropium/Albuterol Neb 3 ML IH SCH ×6 (03:55→23:48)
[2021-03-24] MEDS ORDERED: Haloperidol Lactate 5 MG/ML VIAL IVP ONE (04:19)
[2021-03-24] MEDS ORDERED: *HR* LORazepam 2 MG/ML VIAL IVP ONE (04:21)
[2021-03-24] MEDS ORDERED: Perflutren Lipid Microsphere 1.3 ML in 0.9 % Sodium Chloride 8.7 ML IVP PRN (04:23)
[2021-03-24 04:33] LABS: BUN/Creatinine Ratio 24 (6-26); Blood Urea Nitrogen 19 mg/dL (8-23); Carbon Dioxide 28 mEq/L (23-29); Chloride 101 mEq/L (98-107); Glucose 103 mg/dL (70-105); Osmolality,Calculated 295 (280-300); Potassium 4.2 mEq/L (3.5-5.1); Sodium 141 mEq/L (136-145); eGFR For African Americans > 60 (> 60); eGFR For Non-African Americans > 60 (> 60)
[2021-03-24] MEDS: Azithromycin 500 MG in 0.9 % Sodium Chloride 250 ML IVPB SCH (05:13)
[2021-03-24] MEDS: MethylPREDNISolone 40 MG/ML VIAL IVP SCH ×3 (05:13→16:50)
[2021-03-24] MEDS ORDERED: *HR* Heparin 5,000 UNIT/ML VIAL IVP PRN ×2 (05:37)
[2021-03-24] MEDS ORDERED: *HR* Heparin 5,000 UNIT/ML VIAL IVP ONE (05:37)
[2021-03-24] MEDS ORDERED: *HR* Heparin 5,000 UNIT/ML VIAL SQ SCH (06:00)
[2021-03-24] MEDS: Heparin 25,000UNIT/250ML 1/2NS 25,000 UNIT/250 ML IV.SOLN IVC SCH (06:47)
[2021-03-24] MEDS: Piperacillin/Tazobactam 3.375 GM in 0.9 % Sodium Chloride Mini Bag 100 ML IVPB SCH ×2 (08:33→16:49)
[2021-03-24] MEDS ORDERED: cefTRIAXone 1,000 MG in 0.9 % Sodium Chloride Mini Bag 100 ML IVPB SCH (09:00)
[2021-03-24] MEDS: Vancomycin 1,500 MG/265 ML IV.SOLN IVPB SCH (14:16)
[2021-03-24] MEDS ORDERED: D5% in Water 1,000 ML IVC PRN (14:24)
[2021-03-24] MEDS ORDERED: *HR* Dextrose 50 % in Water (Syg) 50 ML SYRINGE IVP PRN (14:24)
[2021-03-24] MEDS ORDERED: Dextrose Gel 15 GM/37.5 ML TUBE PO PRN ×2 (14:24)
[2021-03-24 16:32] LABS: ABG Base Excess 7 mEq/L (-2 to 3); ABG HCO3 35 mEq/L (21-27); ABG Oxygen Saturation 97 % (95-98); ABG PCO2 66 mmHg (35-45); ABG PH 7.34 pH Units (7.32-7.45); ABG PO2 105 mmHg (85-104); ABG TCO2 37 mEq/L (20-26)
[2021-03-24] MEDS: Insulin LISPRO 300 UNITS/3 ML VIAL SUBQ SCH ×2 (16:49→23:58)
[2021-03-24] MEDS: Melatonin 3 MG TABLET PO SCH (20:06)
[2021-03-24] MEDS: BuPROPion SR (12 HR) 150 MG TABLET PO SCH (20:06)
[2021-03-24] MEDS: Metoprolol XL (24 HR) Succ 50 MG TAB.ER.24H PO SCH (20:06)
[2021-03-24] MEDS: Budesonide/Formoterol 160/4.5 1 PUFF INH IH SCH (20:39)
[2021-03-24] MEDS ORDERED: Metoprolol XL (24 HR) Succ 50 MG TAB.ER.24H PO SCH (21:00)
[2021-03-24] MEDS ORDERED: Vancomycin 1,750 MG/517.5 ML IV.SOLN IVPB ONE (23:57)
[2021-03-25] MEDS: Piperacillin/Tazobactam 3.375 GM in 0.9 % Sodium Chloride Mini Bag 100 ML IVPB SCH (00:06)
[2021-03-25] MEDS: MethylPREDNISolone 40 MG/ML VIAL IVP SCH ×5 (00:06→23:25)
[2021-03-25] MEDS: Ipratropium/Albuterol Neb 3 ML IH SCH ×6 (04:22→23:45)
[2021-03-25] MEDS: Vancomycin 1,500 MG/265 ML IV.SOLN IVPB SCH (05:10)
[2021-03-25] MEDS: Azithromycin 500 MG in 0.9 % Sodium Chloride 250 ML IVPB SCH (05:11)
[2021-03-25] MEDS: Insulin LISPRO 300 UNITS/3 ML VIAL SUBQ SCH ×4 (05:22→23:25)
[2021-03-25] MEDS: Budesonide/Formoterol 160/4.5 1 PUFF INH IH SCH ×2 (08:10→19:52)
[2021-03-25] MEDS: Cholecalciferol (D-3) 1,000 UNIT (25MCG) TABLET PO SCH (08:28)
[2021-03-25] MEDS: Aspirin Enteric Coated 81 MG Tablet PO SCH (08:29)
[2021-03-25] MEDS: BuPROPion SR (12 HR) 150 MG TABLET PO SCH ×2 (08:29→19:57)
[2021-03-25] MEDS: Metoprolol XL (24 HR) Succ 50 MG TAB.ER.24H PO SCH ×2 (08:29→19:53)
[2021-03-25] MEDS: levoFLOXacin 750 MG TABLET PO SCH (08:29)
[2021-03-25] MEDS: Heparin 25,000UNIT/250ML 1/2NS 25,000 UNIT/250 ML IV.SOLN IVC SCH (08:31)
[2021-03-25] MEDS ORDERED: DilTIAZem CD (24hr) 120 MG CAP.ER.24H PO SCH ×2 (09:00)
[2021-03-25] MEDS ORDERED: *HR* Digoxin 0.5 MG/2 ML AMPUL IVP ONE (09:21)
[2021-03-25 10:04] LABS: Basophils % 0.1 %; Hematocrit 36.6 % (37.5-50.1); Immature Granulocytes % 0.7 % (0-4); Lymphocytes # 0.4 K/mcL (0.6-4.6); Lymphocytes % 2.1 %; Mean Corpuscular Hemoglobin 31.3 pg (28.0-33.3); Mean Corpuscular Volume 97.9 fL (83.0-100.0); Mean Platelet Volume 10.5 fL (9.4-12.4); Monocytes # 0.4 K/mcL (0.0-1.3); Monocytes % 2.6 %; Neutrophils # 16.1 K/mcL (1.6-8.9); Platelet Count 271 K/mcL (140-400); Red Blood Count 3.74 M/mcL (4.19-5.50); Red Cell Distribution Width 13.1 % (11.5-14.5); Segmented Neutrophils % 94.5 %
[2021-03-25 10:09] LABS: Hemoglobin 11.7 g/dL (12.9-16.9)
[2021-03-25 10:24] LABS: BUN/Creatinine Ratio 21 (6-26); Blood Urea Nitrogen 16 mg/dL (8-23); Calcium 8.9 mg/dL (8.6-10.3); Carbon Dioxide 35 mEq/L (23-29); Chloride 100 mEq/L (98-107); Glucose 154 mg/dL (70-105); Magnesium 1.8 mg/dL (1.6-2.6); Osmolality,Calculated 294 (280-300); Phosphorous 2.8 mg/dL (2.7-4.5); Sodium 140 mEq/L (136-145); eGFR For African Americans > 60 (> 60); eGFR For Non-African Americans > 60 (> 60)
[2021-03-25] MEDS ORDERED: DilTIAZem CD (24hr) 120 MG CAP.ER.24H PO ONE (14:10)
[2021-03-25] MEDS: *HR* Digoxin 0.5 MG/2 ML AMPUL IVP SCH ×2 (16:09→17:50)
[2021-03-25] MEDS ORDERED: MethylPREDNISolone 40 MG/ML VIAL IVP SCH (18:00)
[2021-03-25] MEDS: Acetaminophen 325 MG TABLET PO PRN (19:53)
[2021-03-25] MEDS: Melatonin 3 MG TABLET PO SCH (19:57)
[2021-03-26] MEDS: Acetaminophen 325 MG TABLET PO PRN ×2 (01:50→22:14)
[2021-03-26] MEDS: Ipratropium/Albuterol Neb 3 ML IH SCH ×5 (04:24→20:23)
[2021-03-26 05:01] LABS: Hemoglobin 11.5 g/dL (12.9-16.9); Immature Granulocytes % 0.7 % (0-4); Lymphocytes # 0.3 K/mcL (0.6-4.6); Lymphocytes % 2.2 %; Mean Corpuscular HGB Conc 32.9 g/dL (31.6-35.5); Mean Corpuscular Hemoglobin 32.3 pg (28.0-33.3); Mean Corpuscular Volume 98.3 fL (83.0-100.0); Mean Platelet Volume 10.5 fL (9.4-12.4); Monocytes # 0.6 K/mcL (0.0-1.3); Monocytes % 4.3 %; Neutrophils # 12.8 K/mcL (1.6-8.9); Platelet Count 266 K/mcL (140-400); Red Blood Count 3.56 M/mcL (4.19-5.50); Red Cell Distribution Width 12.8 % (11.5-14.5); Segmented Neutrophils % 92.8 %; White Blood Count 13.8 K/mcL (4.3-11.1)
[2021-03-26 05:22] LABS: BUN/Creatinine Ratio 20 (6-26); Blood Urea Nitrogen 15 mg/dL (8-23); Calcium 9.1 mg/dL (8.6-10.3); Carbon Dioxide 35 mEq/L (23-29); Chloride 100 mEq/L (98-107); Glucose 141 mg/dL (70-105); Osmolality,Calculated 291 (280-300); Phosphorous 2.2 mg/dL (2.7-4.5); Potassium 4.7 mEq/L (3.5-5.1); Sodium 139 mEq/L (136-145); eGFR For African Americans > 60 (> 60); eGFR For Non-African Americans > 60 (> 60)
[2021-03-26] MEDS: Heparin 25,000UNIT/250ML 1/2NS 25,000 UNIT/250 ML IV.SOLN IVC SCH (06:38)
[2021-03-26] MEDS: Budesonide/Formoterol 160/4.5 1 PUFF INH IH SCH ×2 (07:46→20:24)
[2021-03-26] MEDS: Insulin LISPRO 300 UNITS/3 ML VIAL SUBQ SCH ×4 (10:01→20:35)
[2021-03-26] MEDS: Cholecalciferol (D-3) 1,000 UNIT (25MCG) TABLET PO SCH ×2 (10:24→10:33)
[2021-03-26] MEDS: MethylPREDNISolone 40 MG/ML VIAL IVP SCH ×2 (10:24→17:23)
[2021-03-26] MEDS: levoFLOXacin 750 MG TABLET PO SCH ×2 (10:24→10:33)
[2021-03-26] MEDS: Aspirin Enteric Coated 81 MG Tablet PO SCH ×2 (10:24→10:33)
[2021-03-26] MEDS: Metoprolol XL (24 HR) Succ 50 MG TAB.ER.24H PO SCH ×3 (10:24→20:46)
[2021-03-26] MEDS: BuPROPion SR (12 HR) 150 MG TABLET PO SCH ×3 (10:24→21:00)
[2021-03-26] MEDS: DilTIAZem CD (24hr) 240 MG CAP.ER.24H PO SCH ×2 (10:24→10:33)
[2021-03-26] MEDS ORDERED: Furosemide 20 MG/2 ML VIAL IVP ONE (11:49)
[2021-03-26] MEDS: *HR* Heparin 5,000 UNIT/ML VIAL SQ SCH ×2 (13:00→21:00)
[2021-03-26] MEDS: Melatonin 3 MG TABLET PO SCH (20:59)
[2021-03-27] MEDS: Ipratropium/Albuterol Neb 3 ML IH SCH ×5 (00:22→16:03)
[2021-03-27] MEDS: *HR* Heparin 5,000 UNIT/ML VIAL SQ SCH ×2 (05:31→13:50)
[2021-03-27] MEDS: MethylPREDNISolone 40 MG/ML VIAL IM SCH ×2 (06:13→13:50)
[2021-03-27] MEDS: MethylPREDNISolone 40 MG/ML VIAL IVP SCH (07:32)
[2021-03-27] MEDS: Budesonide/Formoterol 160/4.5 1 PUFF INH IH SCH (07:39)
[2021-03-27] MEDS: Insulin LISPRO 300 UNITS/3 ML VIAL SUBQ SCH ×2 (08:50→12:06)
[2021-03-27] MEDS ORDERED: Furosemide 40 MG TABLET PO SCH (09:15)
[2021-03-27] MEDS: levoFLOXacin 750 MG TABLET PO SCH (09:56)
[2021-03-27] MEDS: Metoprolol XL (24 HR) Succ 50 MG TAB.ER.24H PO SCH (09:56)
[2021-03-27] MEDS: Cholecalciferol (D-3) 1,000 UNIT (25MCG) TABLET PO SCH (09:56)
[2021-03-27] MEDS: DilTIAZem CD (24hr) 240 MG CAP.ER.24H PO SCH (09:56)
[2021-03-27] MEDS: Aspirin Enteric Coated 81 MG Tablet PO SCH (09:56)
[2021-03-27] MEDS: BuPROPion SR (12 HR) 150 MG TABLET PO SCH (09:59)
[2021-03-27 16:04] VITALS: BP 131/83; PULSE 68; TEMP 97.9; O2SAT 100
[2021-03-28] MEDS ORDERED: predniSONE 20 MG TABLET PO SCH (09:00)
== END 2021-03-27 17:19 | disposition home or self-care (01) | DRG 871 ==
LOC: EMEROOARM 20:44 → CDU 20:44 → SUATTDRO 03-24 02:37 → ICNU 03-24 07:15 → 2NNU 03-24 14:28 → 2ANU 03-26 00:21
PROVIDERS: ADMIT Internal Medicine; ATTEND Internal Medicine

== ENCOUNTER 2021-09-05 21:10 | Inpatient (IN) ==
[2021-09-05] MEDS ORDERED: Ipratropium/Albuterol Neb 3 ML IH ONE (21:17)
[2021-09-05] MEDS ORDERED: methylPREDNISolone 125 MG/2 ML VIAL IVP ONE (21:18)
[2021-09-05] MEDS ORDERED: Budesonide Neb 0.5 MG/2 ML IH ONE (21:21)
[2021-09-05 21:47] LABS: Basophils # 0.1 K/mcL (0.0-0.2); Basophils % 0.4 %; Eosinophils # 0.1 K/mcL (0.0-0.6); Eosinophils % 0.4 %; Hematocrit 44.2 % (37.5-50.1); Hemoglobin 14.9 g/dL (12.9-16.9); Immature Granulocytes % 0.4 % (0-4); Lymphocytes # 1.4 K/mcL (0.6-4.6); Lymphocytes % 10.3 %; Mean Corpuscular HGB Conc 33.7 g/dL (31.6-35.5); Mean Corpuscular Hemoglobin 31.3 pg (28.0-33.3); Mean Corpuscular Volume 92.9 fL (83.0-100.0); Mean Platelet Volume 10.7 fL (9.4-12.4); Monocytes # 1.5 K/mcL (0.0-1.3); Monocytes % 10.9 %; Neutrophils # 10.8 K/mcL (1.6-8.9); Platelet Count 276 K/mcL (140-400); Red Blood Count 4.76 M/mcL (4.19-5.50); Red Cell Distribution Width 12.2 % (11.5-14.5); Segmented Neutrophils % 77.6 %
[2021-09-05 21:58] LABS: VBG HCO3 34 mEq/L (21-27); VBG PCO2 73 mmHg (41-51); VBG PH 7.27 pH Units (7.32-7.42); VBG PO2 80 mmHg (25-50)
[2021-09-05 22:09] LABS: Alanine Aminotransferase 8 Units/L (7-52); Albumin 4.1 g/dL (3.5-5.7); Albumin/Globulin Ratio 1.3 (1.1-2.2); Alkaline Phosphatase 77 Units/L (34-104); Aspartate Amino Transferase 12 Units/L (13-39); BUN/Creatinine Ratio 21 (6-26); Bilirubin,Total 0.4 mg/dL (0.3-1.0); Blood Urea Nitrogen 16 mg/dL (8-23); Calcium 9.1 mg/dL (8.6-10.3); Carbon Dioxide 31 mEq/L (23-29); Chloride 97 mEq/L (98-107); Globulin 3.2 g/dL (2.4-3.5); Glucose 124 mg/dL (70-105); Osmolality,Calculated 285 (280-300); Potassium 4.1 mEq/L (3.5-5.1); Sodium 136 mEq/L (136-145); Total Protein 7.3 g/dL (6.4-8.9); Troponin I < 0.03 ng/mL (< 0.04); eGFR For African Americans > 60 (> 60); eGFR For Non-African Americans > 60 (> 60)
[2021-09-05] MEDS ORDERED: levoFLOXacin 750 MG/150 ML 750 MG/150 ML BAG IVPB ONE (22:32)
[2021-09-05 22:54] LABS: Adenovirus Not Detected (Not Detect); Bordetella Pertussis Not Detected (Not Detect); Chlamydophila pneumoniae Not Detected (Not Detect); Coronavirus 229E Not Detected (Not Detect); Coronavirus HKU1 Not Detected (Not Detect); Coronavirus NL63 Not Detected (Not Detect); Coronavirus OC43 Not Detected (Not Detect); Human Metapneumovirus Not Detected (Not Detect); Human Rhinovirus/Enterovirus Not Detected (Not Detect); Influenza A Subtype 2009 H1 Not Detected (Not Detect); Influenza B Not Detected (Not Detect); Mycoplasma pneumoniae Not Detected (Not Detect); Parainfluenza Virus 1 Not Detected (Not Detect); Parainfluenza Virus 2 Not Detected (Not Detect); Parainfluenza Virus 3 DETECTED (Not Detect); Parainfluenza Virus 4 Not Detected (Not Detect); Respiratory Syncytial Virus Not Detected (Not Detect); SARS-CoV-2 Not Detected (Not Detect)
[2021-09-05] MEDS ORDERED: Ondansetron 4 MG/2 ML VIAL IVP PRN (23:13)
[2021-09-05] MEDS ORDERED: Naloxone 0.4 MG/ML INJ IVP PRN (23:13)
[2021-09-06 00:53] LABS: ABG Base Excess 3 mEq/L (-2 to 3); ABG HCO3 30 mEq/L (21-27); ABG Oxygen Saturation 95 % (95-98); ABG PCO2 56 mmHg (35-45); ABG PH 7.34 pH Units (7.32-7.45); ABG PO2 80 mmHg (85-104); ABG TCO2 32 mEq/L (20-26)
[2021-09-06] MEDS: Acetaminophen 325 MG TABLET PO PRN ×3 (01:12→16:22)
[2021-09-06 04:06] LABS: Basophils % 0.2 %; Hematocrit 41.3 % (37.5-50.1); Immature Granulocytes % 0.2 % (0-4); Lymphocytes # 0.3 K/mcL (0.6-4.6); Lymphocytes % 3.2 %; Mean Corpuscular HGB Conc 32.2 g/dL (31.6-35.5); Mean Corpuscular Hemoglobin 30.4 pg (28.0-33.3); Mean Corpuscular Volume 94.5 fL (83.0-100.0); Mean Platelet Volume 11.1 fL (9.4-12.4); Monocytes # 0.1 K/mcL (0.0-1.3); Monocytes % 0.6 %; Neutrophils # 9.2 K/mcL (1.6-8.9); Platelet Count 235 K/mcL (140-400); Red Blood Count 4.37 M/mcL (4.19-5.50); Red Cell Distribution Width 12.2 % (11.5-14.5); Segmented Neutrophils % 95.8 %; White Blood Count 9.6 K/mcL (4.3-11.1)
[2021-09-06 04:09] LABS: Hemoglobin 13.3 g/dL (12.9-16.9)
[2021-09-06 04:13] LABS: INR 1.3; Prothrombin Time 14.3 Seconds (9.4-12.1)
[2021-09-06 04:33] LABS: BUN/Creatinine Ratio 21 (6-26); Blood Urea Nitrogen 17 mg/dL (8-23); Carbon Dioxide 34 mEq/L (23-29); Chloride 97 mEq/L (98-107); Glucose 225 mg/dL (70-105); Magnesium 1.5 mg/dL (1.6-2.6); Osmolality,Calculated 291 (280-300); Potassium 3.9 mEq/L (3.5-5.1); Sodium 136 mEq/L (136-145); Troponin I < 0.03 ng/mL (< 0.04); eGFR For African Americans > 60 (> 60); eGFR For Non-African Americans > 60 (> 60)
[2021-09-06] MEDS ORDERED: methylPREDNISolone 125 MG/2 ML VIAL IVP SCH (06:00)
[2021-09-06] MEDS: *HR* Enoxaparin 40 MG/0.4 ML SYRINGE SQ SCH (07:51)
[2021-09-06] MEDS ORDERED: levoFLOXacin 750 MG/150 ML 750 MG/150 ML BAG IVPB SCH (09:00)
[2021-09-06] MEDS: Magnesium Oxide 400 MG TABLET PO SCH (09:50)
[2021-09-06] MEDS: Metoprolol XL (24 HR) Succ 50 MG TAB.ER.24H PO SCH ×2 (13:02→19:49)
[2021-09-06] MEDS: Ipratropium/Albuterol Neb 3 ML IH PRN (16:10)
[2021-09-06] MEDS: MethylPREDNISolone 40 MG/ML VIAL IVP SCH (16:23)
[2021-09-06] MEDS ORDERED: Perflutren Lipid Microsphere 1.3 ML in 0.9 % Sodium Chloride 8.7 ML IVP PRN ×2 (16:24→16:31)
[2021-09-06] MEDS: Ipratropium/Albuterol Neb 3 ML IH SCH (20:24)
[2021-09-06] MEDS: Budesonide/Formoterol 160/4.5 1 PUFF INH IH SCH (20:24)
[2021-09-07] MEDS: Acetaminophen 325 MG TABLET PO PRN ×2 (00:21→08:37)
[2021-09-07] MEDS: MethylPREDNISolone 40 MG/ML VIAL IVP SCH ×2 (00:21→16:51)
[2021-09-07] MEDS: Ipratropium/Albuterol Neb 3 ML IH SCH ×4 (04:23→19:49)
[2021-09-07 05:11] LABS: Basophils % 0.1 %; Hematocrit 41.8 % (37.5-50.1); Hemoglobin 13.5 g/dL (12.9-16.9); Immature Granulocytes % 0.8 % (0-4); Lymphocytes # 0.5 K/mcL (0.6-4.6); Lymphocytes % 2.3 %; Mean Corpuscular HGB Conc 32.3 g/dL (31.6-35.5); Mean Corpuscular Hemoglobin 30.3 pg (28.0-33.3); Mean Corpuscular Volume 93.9 fL (83.0-100.0); Mean Platelet Volume 10.6 fL (9.4-12.4); Monocytes # 0.9 K/mcL (0.0-1.3); Monocytes % 4.3 %; Neutrophils # 18.3 K/mcL (1.6-8.9); Platelet Count 258 K/mcL (140-400); Red Blood Count 4.45 M/mcL (4.19-5.50); Red Cell Distribution Width 12.2 % (11.5-14.5); Segmented Neutrophils % 92.5 %
[2021-09-07 05:16] LABS: White Blood Count 19.8 K/mcL (4.3-11.1)
[2021-09-07 05:31] LABS: BUN/Creatinine Ratio 26 (6-26); Blood Urea Nitrogen 17 mg/dL (8-23); Calcium 9.1 mg/dL (8.6-10.3); Carbon Dioxide 38 mEq/L (23-29); Chloride 97 mEq/L (98-107); Glucose 130 mg/dL (70-105); Magnesium 1.8 mg/dL (1.6-2.6); Osmolality,Calculated 289 (280-300); Potassium 4.7 mEq/L (3.5-5.1); Sodium 138 mEq/L (136-145); eGFR For African Americans > 60 (> 60); eGFR For Non-African Americans > 60 (> 60)
[2021-09-07] MEDS: Magnesium Oxide 400 MG TABLET PO SCH (08:36)
[2021-09-07] MEDS: levoFLOXacin 750 MG TABLET PO SCH (08:37)
[2021-09-07] MEDS: Aspirin Enteric Coated 81 MG Tablet PO SCH (08:37)
[2021-09-07] MEDS: *HR* Enoxaparin 40 MG/0.4 ML SYRINGE SQ SCH (08:37)
[2021-09-07] MEDS: Metoprolol XL (24 HR) Succ 50 MG TAB.ER.24H PO SCH ×2 (08:38→21:14)
[2021-09-07] MEDS: Budesonide/Formoterol 160/4.5 1 PUFF INH IH SCH (10:52)
[2021-09-07] MEDS: Ipratropium/Albuterol Neb 3 ML IH PRN (10:59)
[2021-09-07] MEDS: Nicotine 14 MG PATCH.TD24 TD SCH (12:02)
[2021-09-07] MEDS: DilTIAZem CD (24hr) 120 MG CAP.ER.24H PO SCH (12:57)
[2021-09-07 16:08] LABS: ABG Base Excess 13 mEq/L (-2 to 3); ABG HCO3 43 mEq/L (21-27); ABG Oxygen Saturation 98 % (95-98); ABG PCO2 85 mmHg (35-45); ABG PH 7.32 pH Units (7.32-7.45); ABG PO2 124 mmHg (85-104); ABG TCO2 46 mEq/L (20-26)
[2021-09-07] MEDS ORDERED: *HR* LORazepam 2 MG/ML VIAL IVP ONE (20:28)
[2021-09-07] MEDS ORDERED: NON-FORMULARY MEDICATION 1 EACH EACH (Fluticasone/Salmeterol [Advair 500-50 Diskus] 1 EACH IH SCH (21:00)
[2021-09-08] MEDS: Budesonide/Formoterol 160/4.5 1 PUFF INH IH SCH ×3 (00:29→20:19)
[2021-09-08] MEDS: Ipratropium/Albuterol Neb 3 ML IH PRN ×2 (00:29→20:18)
[2021-09-08] MEDS: Ipratropium/Albuterol Neb 3 ML IH SCH ×3 (04:17→15:57)
[2021-09-08] MEDS: MethylPREDNISolone 40 MG/ML VIAL IVP SCH ×2 (05:39→18:18)
[2021-09-08] MEDS ORDERED: ALPRAZolam 0.25 MG TABLET PO PRN (08:05)
[2021-09-08 09:42] LABS: Basophils % 0.2 %; Hematocrit 40.9 % (37.5-50.1); Hemoglobin 13.2 g/dL (12.9-16.9); Immature Granulocytes % 1.6 % (0-4); Lymphocytes # 0.4 K/mcL (0.6-4.6); Lymphocytes % 3.2 %; Mean Corpuscular HGB Conc 32.3 g/dL (31.6-35.5); Mean Corpuscular Hemoglobin 31.1 pg (28.0-33.3); Mean Corpuscular Volume 96.5 fL (83.0-100.0); Mean Platelet Volume 10.4 fL (9.4-12.4); Monocytes # 0.3 K/mcL (0.0-1.3); Monocytes % 2.8 %; Neutrophils # 11.1 K/mcL (1.6-8.9); Platelet Count 217 K/mcL (140-400); Red Blood Count 4.24 M/mcL (4.19-5.50); Red Cell Distribution Width 12.8 % (11.5-14.5); Segmented Neutrophils % 92.2 %
[2021-09-08 10:09] LABS: BUN/Creatinine Ratio 27 (6-26); Blood Urea Nitrogen 20 mg/dL (8-23); Calcium 8.8 mg/dL (8.6-10.3); Carbon Dioxide 40 mEq/L (23-29); Chloride 91 mEq/L (98-107); Glucose 136 mg/dL (70-105); Magnesium 1.9 mg/dL (1.6-2.6); Osmolality,Calculated 283 (280-300); Potassium 4.6 mEq/L (3.5-5.1); Sodium 134 mEq/L (136-145); eGFR For African Americans > 60 (> 60); eGFR For Non-African Americans > 60 (> 60)
[2021-09-08 10:50] LABS: ABG Base Excess 14 mEq/L (-2 to 3); ABG HCO3 45 mEq/L (21-27); ABG Oxygen Saturation 95 % (95-98); ABG PCO2 93 mmHg (35-45); ABG PO2 90 mmHg (85-104); ABG TCO2 48 mEq/L (20-26); Blood Gas Modality AVAPS; Blood Gas VT 500 cc
[2021-09-08] MEDS: DilTIAZem CD (24hr) 120 MG CAP.ER.24H PO SCH (11:00)
[2021-09-08] MEDS: *HR* Enoxaparin 40 MG/0.4 ML SYRINGE SQ SCH (11:00)
[2021-09-08] MEDS: Magnesium Oxide 400 MG TABLET PO SCH ×2 (11:00→21:25)
[2021-09-08] MEDS: Aspirin Enteric Coated 81 MG Tablet PO SCH (11:00)
[2021-09-08] MEDS: Nicotine 14 MG PATCH.TD24 TD SCH (11:00)
[2021-09-08] MEDS: Metoprolol XL (24 HR) Succ 50 MG TAB.ER.24H PO SCH ×2 (11:00→21:26)
[2021-09-08] MEDS: levoFLOXacin 750 MG TABLET PO SCH (11:00)
[2021-09-08 17:14] LABS: Bacteria,Urine Few per hpf (None-Few); Bilirubin,Urine Negative (Negative); Blood,Urine Small (Negative); Clarity,Urine Clear (Clear); Color,Urine Light-Yellow (Yellow); Glucose,Urine (UA) Normal (Normal); Hyaline Casts,Urine Few per lpf (None Seen); Ketones,Urine Negative (Negative); Leukocyte Esterase,Urine Negative (Negative); Mucus,Urine Few per lpf (None-Few); Nitrite,Urine Negative (Negative); Protein,Urine 200 mg/dL (Neg-Trace); RBC,Urine 0-3 per hpf (0-3); Specific Gravity,Urine 1.025 (1.010-1.025); Sperm,Urine Present per hpf (None Seen); Urobilinogen,Urine Normal (Normal); WBC,Urine 0-3 per hpf (0-3)
[2021-09-08] MEDS: Acetaminophen 325 MG TABLET PO PRN (21:25)
[2021-09-09] MEDS: Ipratropium/Albuterol Neb 3 ML IH SCH ×5 (00:01→22:23)
[2021-09-09 04:07] LABS: Basophils % 0.2 %; Hematocrit 41.3 % (37.5-50.1); Immature Granulocytes % 0.7 % (0-4); Lymphocytes # 0.7 K/mcL (0.6-4.6); Lymphocytes % 6.1 %; Mean Corpuscular HGB Conc 31.5 g/dL (31.6-35.5); Mean Corpuscular Hemoglobin 30.5 pg (28.0-33.3); Mean Corpuscular Volume 96.9 fL (83.0-100.0); Mean Platelet Volume 11.1 fL (9.4-12.4); Monocytes # 0.5 K/mcL (0.0-1.3); Monocytes % 4.8 %; Neutrophils # 9.4 K/mcL (1.6-8.9); Platelet Count 222 K/mcL (140-400); Red Blood Count 4.26 M/mcL (4.19-5.50); Red Cell Distribution Width 12.4 % (11.5-14.5); Segmented Neutrophils % 88.2 %; White Blood Count 10.7 K/mcL (4.3-11.1)
[2021-09-09] MEDS: MethylPREDNISolone 40 MG/ML VIAL IVP SCH ×3 (04:30→23:29)
[2021-09-09 05:18] LABS: ABG Base Excess 15 mEq/L (-2 to 3); ABG HCO3 47 mEq/L (21-27); ABG Oxygen Saturation 96 % (95-98); ABG PCO2 99 mmHg (35-45); ABG PH 7.28 pH Units (7.32-7.45); ABG PO2 100 mmHg (85-104); ABG TCO2 50 mEq/L (20-26)
[2021-09-09 05:24] LABS: BUN/Creatinine Ratio 40 (6-26); Blood Urea Nitrogen 23 mg/dL (8-23); Calcium 9.3 mg/dL (8.6-10.3); Carbon Dioxide 43 mEq/L (23-29); Chloride 89 mEq/L (98-107); Glucose 140 mg/dL (70-105); Magnesium 2.1 mg/dL (1.6-2.6); Osmolality,Calculated 286 (280-300); Potassium 4.7 mEq/L (3.5-5.1); Sodium 135 mEq/L (136-145); eGFR For African Americans > 60 (> 60); eGFR For Non-African Americans > 60 (> 60)
[2021-09-09] MEDS: Metoprolol XL (24 HR) Succ 50 MG TAB.ER.24H PO SCH ×2 (07:37→20:29)
[2021-09-09] MEDS: levoFLOXacin 750 MG TABLET PO SCH (07:37)
[2021-09-09] MEDS: Magnesium Oxide 400 MG TABLET PO SCH ×2 (07:37→20:29)
[2021-09-09] MEDS: Aspirin Enteric Coated 81 MG Tablet PO SCH (07:37)
[2021-09-09] MEDS: DilTIAZem CD (24hr) 120 MG CAP.ER.24H PO SCH (07:38)
[2021-09-09] MEDS: Nicotine 14 MG PATCH.TD24 TD SCH (07:38)
[2021-09-09] MEDS: *HR* Enoxaparin 40 MG/0.4 ML SYRINGE SQ SCH ×2 (07:39→07:48)
[2021-09-09] MEDS ORDERED: acetaZOLAMIDE 250 MG TABLET PO ONE (07:41)
[2021-09-09] MEDS: Budesonide/Formoterol 160/4.5 1 PUFF INH IH SCH ×2 (09:59→22:23)
[2021-09-09] MEDS ORDERED: Furosemide 40 MG/4 ML VIAL IVP ONE (10:00)
[2021-09-10 02:36] LABS: Basophils % 0.1 %; Hematocrit 42.7 % (37.5-50.1); Hemoglobin 13.8 g/dL (12.9-16.9); Immature Granulocytes % 0.2 % (0-4); Lymphocytes # 0.7 K/mcL (0.6-4.6); Mean Corpuscular HGB Conc 32.3 g/dL (31.6-35.5); Mean Corpuscular Hemoglobin 30.4 pg (28.0-33.3); Mean Corpuscular Volume 94.1 fL (83.0-100.0); Monocytes # 0.3 K/mcL (0.0-1.3); Monocytes % 3.3 %; Neutrophils # 8.5 K/mcL (1.6-8.9); Platelet Count 262 K/mcL (140-400); Red Blood Count 4.54 M/mcL (4.19-5.50); Red Cell Distribution Width 11.9 % (11.5-14.5); Segmented Neutrophils % 89.4 %; White Blood Count 9.5 K/mcL (4.3-11.1)
[2021-09-10 03:05] LABS: Alanine Aminotransferase 11 Units/L (7-52); Albumin 3.7 g/dL (3.5-5.7); Albumin/Globulin Ratio 1.2 (1.1-2.2); Alkaline Phosphatase 47 Units/L (34-104); Aspartate Amino Transferase 13 Units/L (13-39); BUN/Creatinine Ratio 41 (6-26); Bilirubin,Total 0.3 mg/dL (0.3-1.0); Blood Urea Nitrogen 38 mg/dL (8-23); Calcium 9.5 mg/dL (8.6-10.3); Carbon Dioxide 41 mEq/L (23-29); Chloride 88 mEq/L (98-107); Globulin 3.2 g/dL (2.4-3.5); Glucose 159 mg/dL (70-105); Osmolality,Calculated 294 (280-300); Potassium 4.1 mEq/L (3.5-5.1); Sodium 136 mEq/L (136-145); Total Protein 6.9 g/dL (6.4-8.9); eGFR For African Americans > 60 (> 60); eGFR For Non-African Americans > 60 (> 60)
[2021-09-10] MEDS: Ipratropium/Albuterol Neb 3 ML IH SCH ×4 (04:19→22:14)
[2021-09-10] MEDS: MethylPREDNISolone 40 MG/ML VIAL IVP SCH ×4 (06:09→23:30)
[2021-09-10 08:10] LABS: ABG Base Excess 13 mEq/L (-2 to 3); ABG HCO3 45 mEq/L (21-27); ABG Oxygen Saturation 97 % (95-98); ABG PCO2 94 mmHg (35-45); ABG PH 7.29 pH Units (7.32-7.45); ABG PO2 105 mmHg (85-104); ABG TCO2 48 mEq/L (20-26)
[2021-09-10] MEDS: Budesonide/Formoterol 160/4.5 1 PUFF INH IH SCH ×2 (10:03→22:15)
[2021-09-10] MEDS: Aspirin Enteric Coated 81 MG Tablet PO SCH (11:45)
[2021-09-10] MEDS: Metoprolol XL (24 HR) Succ 50 MG TAB.ER.24H PO SCH ×2 (11:45→21:03)
[2021-09-10] MEDS: Magnesium Oxide 400 MG TABLET PO SCH ×2 (11:45→21:05)
[2021-09-10] MEDS: levoFLOXacin 750 MG TABLET PO SCH (11:45)
[2021-09-10] MEDS: *HR* Enoxaparin 40 MG/0.4 ML SYRINGE SQ SCH (11:45)
[2021-09-10] MEDS: Nicotine 14 MG PATCH.TD24 TD SCH (11:46)
[2021-09-11] MEDS: Ipratropium/Albuterol Neb 3 ML IH SCH ×4 (03:53→22:20)
[2021-09-11 04:01] LABS: Basophils % 0.2 %; Hemoglobin 14.5 g/dL (12.9-16.9); Immature Granulocytes % 0.3 % (0-4); Lymphocytes # 0.7 K/mcL (0.6-4.6); Lymphocytes % 7.1 %; Mean Corpuscular HGB Conc 32.2 g/dL (31.6-35.5); Mean Corpuscular Hemoglobin 30.1 pg (28.0-33.3); Mean Corpuscular Volume 93.4 fL (83.0-100.0); Mean Platelet Volume 11.2 fL (9.4-12.4); Monocytes # 0.4 K/mcL (0.0-1.3); Monocytes % 3.9 %; Neutrophils # 8.8 K/mcL (1.6-8.9); Platelet Count 282 K/mcL (140-400); Red Blood Count 4.82 M/mcL (4.19-5.50); Red Cell Distribution Width 11.8 % (11.5-14.5); Segmented Neutrophils % 88.5 %
[2021-09-11 04:21] LABS: Alanine Aminotransferase 9 Units/L (7-52); Albumin 3.7 g/dL (3.5-5.7); Albumin/Globulin Ratio 1.3 (1.1-2.2); Alkaline Phosphatase 48 Units/L (34-104); Aspartate Amino Transferase 10 Units/L (13-39); BUN/Creatinine Ratio 59 (6-26); Bilirubin,Total 0.3 mg/dL (0.3-1.0); Blood Urea Nitrogen 35 mg/dL (8-23); Calcium 9.4 mg/dL (8.6-10.3); Carbon Dioxide 44 mEq/L (23-29); Chloride 91 mEq/L (98-107); Globulin 2.9 g/dL (2.4-3.5); Glucose 179 mg/dL (70-105); Osmolality,Calculated 298 (280-300); Potassium 3.9 mEq/L (3.5-5.1); Sodium 138 mEq/L (136-145); Total Protein 6.6 g/dL (6.4-8.9); eGFR For African Americans > 60 (> 60); eGFR For Non-African Americans > 60 (> 60)
[2021-09-11] MEDS: MethylPREDNISolone 40 MG/ML VIAL IVP SCH ×3 (05:59→17:12)
[2021-09-11] MEDS: Magnesium Oxide 400 MG TABLET PO SCH ×2 (07:57→21:28)
[2021-09-11] MEDS: Nicotine 14 MG PATCH.TD24 TD SCH (07:57)
[2021-09-11] MEDS: Aspirin Enteric Coated 81 MG Tablet PO SCH (07:57)
[2021-09-11] MEDS: levoFLOXacin 750 MG TABLET PO SCH (07:57)
[2021-09-11] MEDS: Metoprolol XL (24 HR) Succ 50 MG TAB.ER.24H PO SCH ×2 (07:57→21:29)
[2021-09-11] MEDS: *HR* Enoxaparin 40 MG/0.4 ML SYRINGE SQ SCH (08:01)
[2021-09-11] MEDS: Budesonide/Formoterol 160/4.5 1 PUFF INH IH SCH ×2 (10:23→22:20)
[2021-09-11] MEDS: Acetaminophen 325 MG TABLET PO PRN (21:29)
[2021-09-12] MEDS: Ipratropium/Albuterol Neb 3 ML IH SCH ×4 (04:04→22:27)
[2021-09-12] MEDS: MethylPREDNISolone 40 MG/ML VIAL IVP SCH ×2 (05:14→17:36)
[2021-09-12] MEDS: Nicotine 14 MG PATCH.TD24 TD SCH (07:36)
[2021-09-12] MEDS: Metoprolol XL (24 HR) Succ 50 MG TAB.ER.24H PO SCH ×2 (07:37→20:06)
[2021-09-12] MEDS: levoFLOXacin 750 MG TABLET PO SCH (07:37)
[2021-09-12] MEDS: Aspirin Enteric Coated 81 MG Tablet PO SCH (07:37)
[2021-09-12] MEDS: *HR* Enoxaparin 40 MG/0.4 ML SYRINGE SQ SCH (07:37)
[2021-09-12] MEDS: Magnesium Oxide 400 MG TABLET PO SCH ×2 (07:37→20:06)
[2021-09-12] MEDS: Acetaminophen 325 MG TABLET PO PRN ×2 (07:40→17:39)
[2021-09-12] MEDS: Budesonide/Formoterol 160/4.5 1 PUFF INH IH SCH ×2 (10:37→22:28)
[2021-09-13] MEDS: Acetaminophen 325 MG TABLET PO PRN ×3 (00:26→17:16)
[2021-09-13] MEDS: Ipratropium/Albuterol Neb 3 ML IH SCH ×2 (03:55→11:02)
[2021-09-13] MEDS: MethylPREDNISolone 40 MG/ML VIAL IVP SCH ×2 (07:14→17:17)
[2021-09-13] MEDS: Magnesium Oxide 400 MG TABLET PO SCH ×2 (07:41→20:12)
[2021-09-13] MEDS: Metoprolol XL (24 HR) Succ 50 MG TAB.ER.24H PO SCH ×2 (07:41→20:13)
[2021-09-13] MEDS: levoFLOXacin 750 MG TABLET PO SCH (07:41)
[2021-09-13] MEDS: *HR* Enoxaparin 40 MG/0.4 ML SYRINGE SQ SCH ×2 (07:41→08:00)
[2021-09-13] MEDS: Cholecalciferol (D-3) 1,000 UNIT (25MCG) TABLET PO SCH (07:41)
[2021-09-13] MEDS: DilTIAZem CD (24hr) 120 MG CAP.ER.24H PO SCH (07:41)
[2021-09-13] MEDS: Nicotine 14 MG PATCH.TD24 TD SCH (07:42)
[2021-09-13] MEDS: Aspirin Enteric Coated 81 MG Tablet PO SCH (07:42)
[2021-09-13] MEDS: Budesonide/Formoterol 160/4.5 1 PUFF INH IH SCH ×2 (11:02→22:00)
[2021-09-13] MEDS: Ipratropium/Albuterol Neb 3 ML IH PRN (22:02)
[2021-09-14] MEDS: Acetaminophen 325 MG TABLET PO PRN ×3 (00:48→20:08)
[2021-09-14] MEDS: MethylPREDNISolone 40 MG/ML VIAL IVP SCH (04:21)
[2021-09-14 04:25] LABS: ABG Base Excess 9 mEq/L (-2 to 3); ABG HCO3 36 mEq/L (21-27); ABG Oxygen Saturation 94 % (95-98); ABG PCO2 60 mmHg (35-45); ABG PH 7.39 pH Units (7.32-7.45); ABG PO2 72 mmHg (85-104); ABG TCO2 38 mEq/L (20-26)
[2021-09-14] MEDS: Magnesium Oxide 400 MG TABLET PO SCH ×2 (10:03→20:04)
[2021-09-14] MEDS: Metoprolol XL (24 HR) Succ 50 MG TAB.ER.24H PO SCH ×2 (10:03→20:04)
[2021-09-14] MEDS: Cholecalciferol (D-3) 1,000 UNIT (25MCG) TABLET PO SCH (10:03)
[2021-09-14] MEDS: levoFLOXacin 750 MG TABLET PO SCH (10:04)
[2021-09-14] MEDS: *HR* Enoxaparin 40 MG/0.4 ML SYRINGE SQ SCH (10:04)
[2021-09-14] MEDS: DilTIAZem CD (24hr) 120 MG CAP.ER.24H PO SCH (10:04)
[2021-09-14] MEDS: Nicotine 14 MG PATCH.TD24 TD SCH (10:04)
[2021-09-14] MEDS: Aspirin Enteric Coated 81 MG Tablet PO SCH (10:04)
[2021-09-14] MEDS: Budesonide/Formoterol 160/4.5 1 PUFF INH IH SCH ×2 (10:28→20:59)
[2021-09-14] MEDS: Ipratropium/Albuterol Neb 3 ML IH PRN (10:34)
[2021-09-15] MEDS ORDERED: Methyl Salicylate/Menthol 85 APPL/85 GM TUBE TP PRN (00:07)
[2021-09-15] MEDS: Acetaminophen 325 MG TABLET PO PRN ×2 (05:40→17:10)
[2021-09-15] MEDS: Aspirin Enteric Coated 81 MG Tablet PO SCH (08:35)
[2021-09-15] MEDS: Metoprolol XL (24 HR) Succ 50 MG TAB.ER.24H PO SCH ×2 (08:35→19:48)
[2021-09-15] MEDS: Magnesium Oxide 400 MG TABLET PO SCH ×2 (08:35→19:48)
[2021-09-15] MEDS: DilTIAZem CD (24hr) 120 MG CAP.ER.24H PO SCH (08:35)
[2021-09-15] MEDS: Nicotine 14 MG PATCH.TD24 TD SCH (08:35)
[2021-09-15] MEDS: *HR* Enoxaparin 40 MG/0.4 ML SYRINGE SQ SCH (08:36)
[2021-09-15] MEDS: Cholecalciferol (D-3) 1,000 UNIT (25MCG) TABLET PO SCH (08:36)
[2021-09-15] MEDS ORDERED: predniSONE 20 MG TABLET PO SCH (09:00)
[2021-09-15] MEDS: Budesonide/Formoterol 160/4.5 1 PUFF INH IH SCH ×2 (10:36→22:24)
[2021-09-16] MEDS: Acetaminophen 325 MG TABLET PO PRN ×3 (00:22→18:46)
[2021-09-16] MEDS: Budesonide/Formoterol 160/4.5 1 PUFF INH IH SCH ×2 (07:41→21:03)
[2021-09-16] MEDS: *HR* Enoxaparin 40 MG/0.4 ML SYRINGE SQ SCH (07:45)
[2021-09-16] MEDS: Metoprolol XL (24 HR) Succ 50 MG TAB.ER.24H PO SCH (07:46)
[2021-09-16] MEDS: Nicotine 14 MG PATCH.TD24 TD SCH (07:46)
[2021-09-16] MEDS: DilTIAZem CD (24hr) 120 MG CAP.ER.24H PO SCH (07:46)
[2021-09-16] MEDS: Aspirin Enteric Coated 81 MG Tablet PO SCH (07:46)
[2021-09-16] MEDS: Cholecalciferol (D-3) 1,000 UNIT (25MCG) TABLET PO SCH (07:46)
[2021-09-16] MEDS: Magnesium Oxide 400 MG TABLET PO SCH (07:46)
[2021-09-16] MEDS ORDERED: predniSONE 20 MG TABLET PO SCH (09:00)
[2021-09-16 11:56] VITALS: O2SAT 95
[2021-09-16 15:52] LABS: Adenovirus Not Detected (Not Detect); Coronavirus 229E Not Detected (Not Detect); Coronavirus HKU1 Not Detected (Not Detect); Coronavirus NL63 Not Detected (Not Detect); Coronavirus OC43 Not Detected (Not Detect); Human Metapneumovirus Not Detected (Not Detect); Human Rhinovirus/Enterovirus Not Detected (Not Detect); Influenza A Subtype 2009 H1 Not Detected (Not Detect); Influenza B Not Detected (Not Detect); Parainfluenza Virus 1 Not Detected (Not Detect); SARS-CoV-2 Not Detected (Not Detect)
[2021-09-16 15:53] LABS: Bordetella Pertussis Not Detected (Not Detect); Chlamydophila pneumoniae Not Detected (Not Detect); Mycoplasma pneumoniae Not Detected (Not Detect); Parainfluenza Virus 2 Not Detected (Not Detect); Parainfluenza Virus 3 DETECTED (Not Detect); Parainfluenza Virus 4 Not Detected (Not Detect); Respiratory Syncytial Virus Not Detected (Not Detect)
[2021-09-16 20:57] VITALS: BP 132/85; PULSE 83; TEMP 98.2
== END 2021-09-16 21:40 | disposition home or self-care (01) | DRG 871 ==
LOC: EMEROOARM 21:10 → 3NENU 21:10 → SUATTDRO 22:49 → 3NENU 09-06 00:15 → SUATTDRO 09-07 13:39
PROVIDERS: ADMIT Internal Medicine; ATTEND Internal Medicine